=== PATIENT | female | born 1960 | race Caucasian/White ===

== ENCOUNTER 2020-04-19 15:26 | Outpatient (REF) | payer OTHER, SELFPAY ==
[2020-04-19 17:10] LABS: COVID-19 Test Negative (Negative)
== END 2020-04-19 15:27 | disposition home or self-care (01) ==
LOC: HO.LAB 15:26
PROVIDERS: Visit Provider Internal Medicine
DX: Z20.828 Contact with and (suspected) exposure to other viral communicable diseases (principal)
CPT/HCPCS: 87635

== ENCOUNTER 2020-06-05 18:00 | Outpatient (RCR) | payer OTHER, SELFPAY | END 2020-06-06 23:55 | disposition home or self-care (01) | LOC: HO.PAOS 18:00 | PROVIDERS: Visit Provider Counselor Mental Health | DX: F33.1 Major depressive disorder, recurrent, moderate (principal) | CPT/HCPCS: 90834 ==

== ENCOUNTER 2020-07-08 14:13 | Outpatient (REF) | payer OTHER, SELFPAY ==
--- NOTE | 2020-07-08 14:13 | CT_ITS ---
EXAMINATION: CT ABDOMEN AND PELVIS WITH CONTRAST CLINICAL INFORMATION: Right lower quadrant pain. COMPARISON: CT abdomen and pelvis 08/31/2018 TECHNIQUE: Multidetector volumetric images were obtained from the superior aspect of the liver through the pubic symphysis following administration 85 mL of Omnipaque 350 intravenous contrast. Sagittal and coronal reformatted images were obtained on the technologist's workstation. Oral contrast: No This CT examination was performed using dose optimization techniques as appropriate, variously including the following: *Automated exposure control *Adjustment of mA and/or kV according to patient size (this includes techniques or standardized protocols for targeted exams where dose is matched to indication/reason for exam; i.e. extremities or head) *Use of iterative reconstruction technique DLP: 359 mGy-cm FINDINGS: LUNG BASES: There are minimal atelectatic changes in the lingula. The lung bases are clear. There are bilateral augmented breasts. LIVER, GALLBLADDER, AND BILIARY TREE: The liver is normal in size, shape, and attenuation. No focal hepatic lesion or biliary ductal dilatation is present. The gallbladder has been surgically removed. PANCREAS: Unremarkable. SPLEEN: Unremarkable. ADRENAL GLANDS: Unremarkable. KIDNEYS AND URETERS: The kidneys are normal in size, shape, and attenuation. No hydronephrosis, hydroureter, or calculi seen. No perinephric stranding. BLADDER: Unremarkable. GASTROINTESTINAL TRACT: There is moderate scattered stool in the colon consistent with mild constipation. There is mild mural thickening without distention of ileal loops. No adjacent fat stranding seen. The jejunal loops are of normal caliber. The stomach is nondistended. The appendix is normal caliber. ABDOMINAL WALL: There is a small umbilical hernia containing fat. LYMPH NODES: Small shotty lymph nodes are seen in the right lower quadrant mesentery with the largest lymph node measuring 5 mm on axial image 46/3. VASCULAR: Unremarkable. PELVIC VISCERA: There is a 1.9 cm right ovarian and a 1.8 cm left ovarian cyst which have slightly increased in size when compared to previous study. The right ovarian cyst measured 1.6 cm and the left ovarian cyst measured approximately 1.4 cm on the previous study. The uterus has been surgically removed. There is no free fluid or free air. OSSEOUS STRUCTURES: No lytic or sclerotic process seen. CT/CT abdomen pelvis w con IMPRESSION: Nonspecific mild mural thickening involving the distal ileal loops without any distention or periileal fat stranding. Normal appendix. Mild constipation. Small bilateral ovarian cysts minimally larger compared to previous exam 08/31/2018. Uterus and gallbladder has been surgically removed.
[2020-07-08 14:32] LABS: Blood Urea Nitrogen 9 mg/dL (9-16); Estimated Glomerular Filt Rate > 60
[2020-07-08] MEDS: iohexoL 350 MG/ML 100 ML INFUS..BTL IV (16:33)
== END 2020-07-08 14:14 | disposition home or self-care (01) ==
LOC: HO.CT 14:13
PROVIDERS: Radiology Diagnostic Radiology; Visit Provider Internal Medicine
DX: R10.31 Right lower quadrant pain (principal)
CPT/HCPCS: 36415; 74177; 82565; 84520; Q9967

== ENCOUNTER → 2020-07-24 08:03 | Outpatient (BNVA) | payer OTHER, SELFPAY | PROVIDERS: PCP Internal Medicine; Visit Provider Obstetrics & Gynecology | DX: Z76.89 Persons encountering health services in other specified circumstances (principal) ==

== ENCOUNTER 2020-07-24 15:21 | Outpatient (REF) | payer OTHER, SELFPAY ==
--- NOTE | 2020-07-24 15:25 | US_ITS ---
EXAMINATION: ULTRASOUND PELVIS COMPLETE CLINICAL INFORMATION: Pelvic pain and bloating. Previous hysterectomy. COMPARISON: None TECHNIQUE: Transabdominal and transvaginal imaging of pelvis is performed. FINDINGS: The uterus is surgically absent. Right ovary measures 3.5 x 2.1 x 1.9 cm and volume 7.3 mL. There are 2 anechoic cysts measuring 1.4 x 1.6 x 1.6 cm and 0.8 x 1.3 x 1.0 cm. The left ovary measures 2.3 x 1.5 x 1.4 cm. There is a septated complex cyst with calcified/echogenic wilkinson measuring 1.9 x 1.6 x 1.4 cm. There is no free fluid in the cul-de-sac. US/US pelvic complete IMPRESSION: 1. Complex cyst left ovary with echogenic calcified wilkinson. 2. Two simple cyst right ovary. 3. Uterus is surgically absent.
--- NOTE | 2020-07-24 15:25 | US_ITS ---
EXAMINATION: ULTRASOUND PELVIS COMPLETE CLINICAL INFORMATION: Pelvic pain and bloating. Previous hysterectomy. COMPARISON: None TECHNIQUE: Transabdominal and transvaginal imaging of pelvis is performed. FINDINGS: The uterus is surgically absent. Right ovary measures 3.5 x 2.1 x 1.9 cm and volume 7.3 mL. There are 2 anechoic cysts measuring 1.4 x 1.6 x 1.6 cm and 0.8 x 1.3 x 1.0 cm. The left ovary measures 2.3 x 1.5 x 1.4 cm. There is a septated complex cyst with calcified/echogenic wilkinson measuring 1.9 x 1.6 x 1.4 cm. There is no free fluid in the cul-de-sac. US/US transvaginal IMPRESSION: 1. Complex cyst left ovary with echogenic calcified wilkinson. 2. Two simple cyst right ovary. 3. Uterus is surgically absent.
== END 2020-07-24 15:22 | disposition home or self-care (01) ==
LOC: HO.US 15:21
PROVIDERS: Visit Provider Obstetrics & Gynecology
DX: R10.2 Pelvic and perineal pain (principal)
CPT/HCPCS: 76830; 76856

== ENCOUNTER → 2020-08-07 11:31 | Outpatient (BNVA) | payer OTHER, SELFPAY | PROVIDERS: Visit Provider Obstetrics & Gynecology ==

== ENCOUNTER 2020-10-15 08:48 | Outpatient (REF) | payer OTHER, SELFPAY ==
[2020-10-15 10:28] LABS: Blood Urea Nitrogen 13 mg/dL (9-16); Estimated Glomerular Filt Rate > 60
[2020-10-15 10:29] LABS: Alanine Aminotransferase 27 U/L (0-31); Albumin Level 4.5 g/dL (3.5-5.0); Alkaline Phosphatase 42 U/L (39-117); Anion Gap 14 (12-20); Aspartate Amino Transferase 20 U/L (5-31); Bilirubin Total 1.2 mg/dL (0.0-1.0); Blood Urea Nitrogen 13 mg/dL (9-16); Calcium 9.6 mg/dL (8.4-10.2); Carbon Dioxide 28 mmol/L (22-29); Chloride 105 mmol/L (96-108); Cholesterol 161 mg/dL; Estimated Glomerular Filt Rate > 60; Glucose Fasting 95 mg/dL (60-99); HDL Cholesterol 55 mg/dL; LDL Cholesterol Calculated 92 mg/dl; Potassium 4.7 mmol/L (3.3-5.1); Sodium 142 mmol/L (135-145); Total Protein 7.1 g/dL (6.5-8.0); Triglycerides 73 mg/dL
[2020-10-15 10:51] LABS: TSH reflex Free T4 2.99 uIU/mL (0.32-4.0)
== END 2020-10-15 08:49 | disposition home or self-care (01) ==
LOC: HO.LAB 08:48
PROVIDERS: Absent Provider Internal Medicine; PCP Nurse Practitioner Family; Visit Provider Nurse Practitioner Family
DX: Z00.00 Encounter for general adult medical examination without abnormal findings (principal); R10.31 Right lower quadrant pain; E03.9 Hypothyroidism, unspecified
CPT/HCPCS: 36415; 80053; 80061; 82565; 84443; 84520

== ENCOUNTER 2021-04-25 11:33 | Outpatient (REF) | payer OTHER, SELFPAY ==
--- NOTE | ~2021-04-25 | XR_ITS ---
EXAMINATION: TWO-VIEW CHEST AND THREE-VIEW PARANASAL SINUSES CLINICAL INFORMATION: Headache COMPARISON: July 18, 2010 July 22, 2018 TECHNIQUE: PA and lateral chest and three-view paranasal sinuses FINDINGS: PA and lateral views of the chest do not demonstrate any evidence of acute parenchymal disease, pneumothorax, pleural effusion. Heart normal size. No evidence of pulmonary edema. Paranasal sinuses are aerated without air-fluid levels identified. No bony destruction identified. Mastoid air cells are aerated. XR/XR chest 2V IMPRESSION: No acute parenchymal disease within the chest. No evidence of acute sinusitis.
--- NOTE | ~2021-04-25 | XR_ITS ---
EXAMINATION: TWO-VIEW CHEST AND THREE-VIEW PARANASAL SINUSES CLINICAL INFORMATION: Headache COMPARISON: July 18, 2010 July 22, 2018 TECHNIQUE: PA and lateral chest and three-view paranasal sinuses FINDINGS: PA and lateral views of the chest do not demonstrate any evidence of acute parenchymal disease, pneumothorax, pleural effusion. Heart normal size. No evidence of pulmonary edema. Paranasal sinuses are aerated without air-fluid levels identified. No bony destruction identified. Mastoid air cells are aerated. XR/XR sinus min 3V IMPRESSION: No acute parenchymal disease within the chest. No evidence of acute sinusitis.
[2021-04-25 13:55] LABS: MANUAL DIFF FLAG NO
[2021-04-25 14:01] LABS: Basophils Percent Auto 0.3 % (0-2); Eosinophils Absolute Auto 0.2 X10*3/uL (0.0-0.4); Eosinophils Percent Auto 1.8 % (0-4); Hemoglobin 14.7 g/dl (12.0-16.0); Imm Gran Abs Auto 0.03 X10*3/uL (0.00-0.03); Imm Gran Pct Auto 0.3 % (0.0-0.4); Lymphocytes Percent Auto 41.4 % (20-40); Mean Corpuscular HGB Conc 33.4 g/dl (31.0-35.0); Mean Corpuscular Hemoglobin 30.4 pg (27.0-33.0); Mean Corpuscular Volume 90.9 fL (80-98); Mean Platelet Volume 10.4 fL (9.4-12.3); Monocytes Absolute Auto 0.7 X10*3/uL (0.1-1.2); Monocytes Percent Auto 7.6 % (2-11); Neutrophils Absolute Auto 4.6 X10*3/uL (2.0-8.3); Neutrophils Percent Auto 48.6 % (45-73); Platelet Count 395 X10*3/uL (160-400); Red Blood Count 4.84 X10*6/uL (4.20-5.50); Red Cell Distribution Width 12.5 % (11.0-16.0); White Blood Count 9.5 X10*3/uL (4.8-10.8)
== END 2021-04-25 11:34 | disposition home or self-care (01) ==
LOC: HO.HMGCX 11:33
PROVIDERS: PCP Nurse Practitioner Family; Visit Provider Internal Medicine
DX: R05.9 Cough, unspecified (principal); R09.81 Nasal congestion; R51.9 Headache, unspecified
CPT/HCPCS: 36415; 70220; 71046; 85025

== ENCOUNTER 2021-05-06 14:51 | Outpatient (REF) | payer OTHER, SELFPAY ==
--- NOTE | ~2021-05-06 | XR_ITS ---
EXAMINATION: XR KNEE, LEFT CLINICAL INFORMATION: Pain COMPARISON: None TECHNIQUE: Four views of the left knee. FINDINGS: Bone alignment is normal. No fracture or dislocation is seen. There are small osteophytes at the patellofemoral joint. The joint spaces are otherwise normal. There is a small joint effusion. XR/XR knee LT 4V IMPRESSION: Mild degenerative changes and small joint effusion.
== END 2021-05-06 14:52 | disposition home or self-care (01) ==
LOC: HO.XRAY 14:51
PROVIDERS: PCP Nurse Practitioner Family; Visit Provider Nurse Practitioner Family
DX: M25.562 Pain in left knee (principal)
CPT/HCPCS: 73564

== ENCOUNTER 2022-05-27 15:10 | Outpatient (REF) | payer OTHER, SELFPAY ==
--- NOTE | 2022-05-27 | EMG_ITS ---
Please see scanned EMG / Nerve Conduction Report. MTDD
== END 2022-05-27 15:11 | disposition home or self-care (01) ==
LOC: HO.NEURO 15:10
PROVIDERS: Visit Provider Physician Assistant
DX: M62.81 Muscle weakness (generalized) (principal)
CPT/HCPCS: 95885; 95909

== ENCOUNTER 2022-06-16 12:36 | Outpatient (REF) | payer OTHER, SELFPAY ==
--- NOTE | ~2022-06-16 | XR_ITS ---
EXAMINATION: XR CERVICAL SPINE CLINICAL INFORMATION: M54.12 - Radiculopathy, cervical region COMPARISON: Cervical spine radiographs 04/03/2008 TECHNIQUE: 3 views of the cervical spine were obtained. FINDINGS: Vertebral bodies are normal in height. There is normal cervical lordosis with borderline dextrocurvature. The odontoid appears intact. There is no vertebral compression, spondylolisthesis, destructive process, or prevertebral soft tissue swelling. There are borderline degenerative disc changes C4-C5 and C5-C6 along with mild anterior vertebral spurring. No erosive changes. There is incidental mild congenital prominence transverse processes C7, similar to prior exam. XR/XR cervical spine 2V IMPRESSION: 1. Borderline degenerative disc changes C4-C5 and C5-C6. 2. No vertebral compression, spondylolisthesis, destructive process.
[2022-06-16 14:09] LABS: MANUAL DIFF FLAG NO
[2022-06-16 14:17] LABS: Basophils Absolute Auto 0.1 X10*3/uL (0.0-0.2); Basophils Percent Auto 0.5 % (0-2); Eosinophils Absolute Auto 0.1 X10*3/uL (0.0-0.4); Eosinophils Percent Auto 1.4 % (0-4); Hematocrit 44.5 % (37.0-47.0); Hemoglobin 14.8 g/dl (12.0-16.0); Imm Gran Abs Auto 0.02 X10*3/uL (0.00-0.03); Imm Gran Pct Auto 0.2 % (0.0-0.4); Lymphocytes Absolute Auto 3.6 X10*3/uL (1.2-4.9); Lymphocytes Percent Auto 37.3 % (20-40); Mean Corpuscular HGB Conc 33.3 g/dl (31.0-35.0); Mean Corpuscular Hemoglobin 29.8 pg (27.0-33.0); Mean Corpuscular Volume 89.7 fL (80.0-98.0); Mean Platelet Volume 10.1 fL (9.4-12.3); Monocytes Absolute Auto 0.6 X10*3/uL (0.1-1.2); Neutrophils Absolute Auto 5.2 x10*3/uL (2.0-8.3); Neutrophils Percent Auto 54.6 % (45-73); Platelet Count 412 X10*3/uL (160-400); Red Blood Count 4.96 X10*6/uL (4.20-5.50); Red Cell Distribution Width 12.8 % (11.0-16.0); White Blood Count 9.5 X10*3/uL (4.8-10.8)
[2022-06-16 14:26] LABS: D Dimer High Sensitivity < 150 NG/ML
[2022-06-16 16:09] LABS: Alanine Aminotransferase 27 U/L (0-31); Albumin Level 4.6 g/dL (3.5-5.0); Alkaline Phosphatase 41 U/L (39-117); Anion Gap 11 (12-20); Aspartate Amino Transferase 21 U/L (5-31); Bilirubin Total 0.7 mg/dL (0.0-1.0); Blood Urea Nitrogen 8 mg/dL (9-16); Calcium 9.7 mg/dL (8.4-10.2); Carbon Dioxide 31 mmol/L (22-29); Chloride 105 mmol/L (96-108); Estimated Glomerular Filt Rate > 60; Glucose Random 94 mg/dL (60-115); Potassium 4.7 mmol/L (3.3-5.1); Sodium 142 mmol/L (135-145); TSH reflex Free T4 1.11 uIU/mL (0.32-4.0)
[2022-06-16 17:09] LABS: Folate 8.1 ng/mL (> or = 4.0); Vitamin B12 434 pg/mL (200-900)
[2022-06-17 11:08] LABS: Magnesium 2.3 mg/dL (1.6-2.6)
[2022-06-19 00:04] LABS: A. Phagocytphilium DNA,RT-PCR NOT DETECTED (NOT DETECTED); Babesia Microti DNA, RT-PCR NOT DETECTED (NOT DETECTED); Borrelia Miyamotoi,DNA RT-PCR NOT DETECTED (NOT DETECTED); E.Chaffeensis DNA RT-PCR NOT DETECTED (NOT DETECTED); Lyme(Borrelia ssp)DNA RT-PCR NOT DETECTED (NOT DETECTED)
[2022-06-20 15:29] LABS: Vitamin B6 18.9 ng/mL (2.1-21.7)
== END 2022-06-16 12:37 | disposition home or self-care (01) ==
LOC: HO.HMGCLDS 12:36
PROVIDERS: PCP Nurse Practitioner Family; Visit Provider Nurse Practitioner Family
DX: H43.399 Other vitreous opacities, unspecified eye (principal); R20.0 Anesthesia of skin; M54.12 Radiculopathy, cervical region
CPT/HCPCS: 36415; 72040; 80053; 82607; 82746; 83735; 84207; 84443; 85025; 85379; 87798; 87801

== ENCOUNTER 2022-06-17 08:07 | Outpatient (REF) | payer OTHER, SELFPAY ==
--- NOTE | ~2022-06-17 | MR_ITS ---
EXAMINATION: MRI OF THE BRAIN WITHOUT CONTRAST CLINICAL INFORMATION: Right face numbness, eye to lips. COMPARISON: Remote CT scanning of the head 04/16/2011. TECHNIQUE: MRI of the brain was obtained using routine sequences without contrast. FINDINGS: No diffusion abnormalities are identified to suggest an acute or subacute infarct. No mass effect or midline shift is seen. The ventricles and sulci are normal in size. There are a few scattered foci of hyperintense T2 and FLAIR signal in the periventricular and subcortical white matter, most consistent with mild chronic microvascular ischemic changes. No extra-axial fluid collections are seen. The brainstem and cerebellum are normal. No pathologic magnetic susceptibility artifact is identified on the gradient refocused acquisition. The craniovertebral junction, marrow signal, and midline structures are normal. The major intracranial flow-voids at the level of the point [place] ira of [place] are preserved. The dural venous sinus flow-voids are maintained. The mastoid air cells are well-aerated. There is minimal mucoperiosteal thickening in the ethmoid sinuses. There is a persistent metopic suture.. MR/MR head/brain wo con IMPRESSION: 1. There are no acute bleeds or infarcts. No masses are demonstrated. There is mild microvascular ischemic disease.
== END 2022-06-17 08:08 | disposition home or self-care (01) ==
LOC: HO.MRI 08:07
PROVIDERS: Visit Provider Nurse Practitioner Family
DX: H43.399 Other vitreous opacities, unspecified eye (principal); R20.0 Anesthesia of skin
CPT/HCPCS: 70551

== ENCOUNTER 2022-08-28 09:21 | Day surgery (SDC) | payer OTHER, SELFPAY ==
--- NOTE | 2022-08-27 11:09 | P.CONAN_ITS ---
Documented by User: Irma Perez NP 08/27/22 11:12 HPI - Anesthesia Eval Consult details Narrative: 61yo F for Colonoscopy PMFSH Active Problems Active Problems: All Active Problems (Updated 08/04/22 @ 17:43 by Olvin Denny, [facility]) Stress (Acute) Facial numbness (Acute) Visual floaters (Acute) Cervical radiculopathy (Acute) Sinusitis (Acute) Viral illness (Acute) Left knee pain (Acute) Otitis media (Acute) Right ovarian cyst (Acute) Acquired hypothyroidism (Acute) Right lower quadrant pain (Acute) Irritable bowel syndrome with constipation (Acute) Physical exam (Acute) Hypothyroid (Acute) Past Medical History Medical History Acquired hypothyroidism Diverticulitis Irritable bowel syndrome with constipation Lateral epicondylitis of elbow Right ovarian cyst Family History Family History Father No problems noted. Mother Breast cancer Hypothyroidism High cholesterol Diabetes mellitus HTN (hypertension) Daughter Ankylosing spondylitis Maternal Grandmother CVD (cardiovascular disease) Maternal Grandfather Lung cancer Paternal Grandfather Unknown family medical history Paternal Grandmother Unknown family medical history Maternal Aunt Melanoma Brother Melanoma Surgical History Surgical History History of breast augmentation History of laparoscopic cholecystectomy History of partial hysterectomy History of tonsillectomy Social History Social History Housing: House Alcohol intake: current Alcohol intake frequency: holidays/special occasions only Patient Tobacco Use Status: Former Tobacco user Years Smoked: quit 35 years ago e-Cigarette/Vaping Use: Never Used Second Hand Smoke Exposure: No Use of substances other than those prescribed or required for medical reasons: No Are you DNR?: No Advance Directives: No Advance Directives Information Provided: Yes Recently lost weight without trying: No Nutrition Risks: No Nutritional Risk service: No Current occupational status: employed 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 Current occupational exposures/hazards: No Sexual orientation: Straight/Heterosexual Gender identity: Female Cognitive needs: No Hearing needs: No Vision needs: No Meds Allergies Allergy/AdvReac Type Severity Reaction Status Date / Time No Known Allergies Allergy Mild NKA Verified 08/04/22 17:36 Home Medications Medication Instructions Recorded Confirmed Last Taken Type alprazolam 1 mg tablet 1 mg PO TID PRN Anxiety 06/05/20 08/28/22 Unknown History escitalopram oxalate 10 mg tablet 10 mg PO DAILY 06/05/20 08/28/22 Unknown History nortriptyline 10 mg capsule 10 mg PO BEDTIME 06/05/20 08/28/22 Unknown History Exam Exam Date and Time: August 27, 2022 1109 Pertinent Lab Results Pertinent Lab Results: Laboratory Tests 06/16/22 06/16/22 12:46 12:46 WBC 9.5 Hgb 14.8 Hct 44.5 Plt Count 412 H Sodium 142 Potassium 4.7 Chloride 105 Carbon Dioxide 31 H BUN 8 L Creatinine 0.65 Narrative Narrative: EKG 05/2022 NSR @ 75 Brain MRI 05/2022 MR head/brain wo con IMPRESSION: 1. There are no acute bleeds or infarcts. No masses are demonstrated. There is mild microvascular ischemic disease. Assessment and Plan Assessment Anesthesia Assessment: Chart Reviewed Documented by User: Lilian Davidson MD 08/28/22 10:57 PMFSH Active Problems Active Problems: All Active Problems (Updated 08/04/22 @ 17:43 by Olvin Denny, [facility]) Stress (Acute) Facial numbness (Acute) Visual floaters (Acute) Cervical radiculopathy (Acute) Sinusitis (Acute) Viral illness (Acute) Left knee pain (Acute) Otitis media (Acute) Right ovarian cyst (Acute) Acquired hypothyroidism (Acute) Right lower quadrant pain (Acute) Irritable bowel syndrome with constipation (Acute) Physical exam (Acute) Hypothyroid (Acute) ?Right ulnar neuropathy Past Medical History Medical History Acquired hypothyroidism Diverticulitis Irritable bowel syndrome with constipation Lateral epicondylitis of elbow Right ovarian cyst Family History Family History Father No problems noted. Mother Breast cancer Hypothyroidism High cholesterol Diabetes mellitus HTN (hypertension) Daughter Ankylosing spondylitis Maternal Grandmother CVD (cardiovascular disease) Maternal Grandfather Lung cancer Paternal Grandfather Unknown family medical history Paternal Grandmother Unknown family medical history Maternal Aunt Melanoma Brother Melanoma Family history of problems with anesthesia: No Surgical History Surgical History History of breast augmentation History of laparoscopic cholecystectomy History of partial hysterectomy History of tonsillectomy History of Problems with Anesthesia: No Social History Social History Housing: House Alcohol intake: current Alcohol intake frequency: holidays/special occasions only Patient Tobacco Use Status: Former Tobacco user Years Smoked: quit 35 years ago e-Cigarette/Vaping Use: Never Used Second Hand Smoke Exposure: No Use of substances other than those prescribed or required for medical reasons: No Are you DNR?: No Advance Directives: No Advance Directives Information Provided: Yes Recently lost weight without trying: No Nutrition Risks: No Nutritional Risk service: No Current occupational status: employed Current occupation: [employer] Current occupational exposures/hazards: No Sexual orientation: Straight/Heterosexual Gender identity: Female Cognitive needs: No Hearing needs: No Vision needs: No Meds Allergies Allergy/AdvReac Type Severity Reaction Status Date / Time No Known Allergies Allergy Mild NKA Verified 08/04/22 17:36 Home Medications Medication Instructions Recorded Confirmed Last Taken Type alprazolam 1 mg tablet 1 mg PO TID PRN Anxiety 06/05/20 08/28/22 Unknown History escitalopram oxalate 10 mg tablet 10 mg PO DAILY 06/05/20 08/28/22 Unknown History nortriptyline 10 mg capsule 10 mg PO BEDTIME 06/05/20 08/28/22 Unknown History Exam Height,Weight and Vital Signs: Height 5 ft 2 in Weight 64.864 kg Vital Signs Temp Pulse Resp BP Pulse Ox O2 Del Method 08/28/22 10:12 99.0 F 109 H 16 126/74 95 Room Air Airway Mallampati Class: II TM Dist: >3cm Neck ROM: Full Loose/Missing/Broken Teeth: No (Denies broken, loose, missing teeth) Heart: RRR Lungs: CTAB Assessment and Plan Assessment Anesthesia Assessment: Anesthesia Plan Discussed Final Anesthetic Review Family History of Problems with Anesthesia: No History of Problems with Anesthesia: No NPO: Yes ASA Class: II Final Preanesthetic Review: No Changes in Pt Med Stat, Meds/Allgs Chart Reviewed, Consent Obtained/Reviewed and Anes Risks/Benef Reviewed Patient Risk: Low Procedure Risk: Low Assessment/Block/Sedation in SS: Assess/Block/Sedation-SS Anesthetic Plan Anesthetic Plan: MAC: Disposition: Standard PACU
[2022-08-28 09:47] VITALS: BMI 26.2
[2022-08-28 10:12] VITALS: BP 126/74; PULSE 109; RESP 16; TEMP 37.2; O2SAT 95
[2022-08-28] MEDS: Lactated Ringers 1,000 ML 100 ML IVCONT (10:14)
[2022-08-28 11:30] VITALS: BP 116/67; PULSE 80; RESP 16; TEMP 37.1; O2SAT 100
--- NOTE | 2022-08-28 11:34 | P.BOP_ITS ---
Brief Operative Note Date of Service: 08/28/22 Pre-op diagnosis: Screening Post-op diagnosis: other (Colon polyp) Procedure: Colonoscopy to the cecum and TI with bx/removal of polyp Surgeon: David Mcdowell Anesthesia: MAC Was an Vamp Liner used for this Procedure?: No Estimated blood loss (mL): 2.0 Pathology: other (A. Polyp at 30cm) Condition: stable Disposition: PACU
[2022-08-28 11:45] VITALS: BP 134/84; PULSE 77; RESP 16; TEMP 37.1; O2SAT 97
--- NOTE | 2022-08-28 22:54 | OP_ITS ---
SURGEON: David Mcdowell MD INDICATIONS: The patient presents for evaluation of colorectal cancer screening. Full consent has been obtained from her for this, including risks of bleeding and perforation. PREOPERATIVE DIAGNOSIS: Colorectal cancer screening. POSTOPERATIVE DIAGNOSIS: PROCEDURE PERFORMED: Colonoscopy to the cecum and terminal ileum with biopsy and removal of polyp. ESTIMATED BLOOD LOSS: COMPLICATIONS: ANESTHESIA: Medication used, monitored anesthesia care. ASSISTANTS: SPECIMENS: POSTOPERATIVE DIAGNOSES: Colorectal cancer screening, small colon polyp, mild diverticulosis, internal and external hemorrhoids. DESCRIPTION OF PROCEDURE: The patient was placed in the left lateral decubitus position. The digital rectal exam revealed external hemorrhoids. The Olympus video pediatric colonoscope was entered into the rectum and advanced easily to the cecum. Once in the cecum, I did identify a normal-appearing cecal pouch with appendiceal orifice and a normal-appearing ileocecal valve. The terminal ileum was cannulated and appeared normal. The scope was withdrawn back in the colon. The entire cecum and ileocecal valve appeared normal. The scope was then slowly withdrawn assessing all mucosal surfaces carefully. Preparation was very good throughout the colon, but did require some irrigation and suctioning. However, ultimately, the preparation was for the most part excellent. The only polyp I visualized was at 30 cm. This was approximately 4 mm in diameter and biopsied and completely removed with a cold biopsy forceps. I did not visualize any other polyps, colitis, nor angiodysplasia. There was a mild amount of sigmoid diverticulosis. In the rectum, the scope was retroflexed visualizing internal hemorrhoids, but no other pathology. The rectal mucosa appeared normal. The scope was straightened out and withdrawn from the patient. She tolerated the procedure well and was returned to the recovery area in stable condition. IMPRESSION: 1. Small colon polyp. 2. Mild diverticulosis. 3. Internal and external hemorrhoids. PLAN: The results of the biopsy will be checked. Assuming it to be a tubular adenoma, I would recommend a followup colonoscopy in 5 years. If it is only hyperplastic, I would recommend a followup colonoscopy in 10 years. She will otherwise continue her regimen for the irritable bowel syndrome with the Benefiber, MiraLax, and hyoscyamine. She will otherwise see me on a p.r.n. basis. MD KARRIE Batres/BERRY / [id number]
== END 2022-08-28 12:15 | disposition home or self-care (01) ==
PROVIDERS: PCP Nurse Practitioner Family; Visit Provider Internal Medicine
PROC: 0DJD8ZZ Inspection of Lower Intestinal Tract, Via Natural or Artificial Opening Endoscopic (ICD-10-PCS; CPT 45378; principal; 2022-08-28 10:30)
DX: Z12.11 Encounter for screening for malignant neoplasm of colon (principal); K63.5 Polyp of colon; K57.30 Diverticulosis of large intestine without perforation or abscess without bleeding; K64.8 Other hemorrhoids; K64.4 Residual hemorrhoidal skin tags; K58.1 Irritable bowel syndrome with constipation; Z87.19 Personal history of other diseases of the digestive system; E03.9 Hypothyroidism, unspecified; E78.5 Hyperlipidemia, unspecified; Z79.1 Long term (current) use of non-steroidal anti-inflammatories (NSAID); Z79.899 Other long term (current) drug therapy; Z90.49 Acquired absence of other specified parts of digestive tract; Z87.891 Personal history of nicotine dependence; Z86.16 Personal history of COVID-19
CPT/HCPCS: 45380; 88305

== ENCOUNTER 2023-06-01 15:23 | Outpatient (REF) | payer OTHER, SELFPAY ==
[2023-06-01 15:40] LABS: MANUAL DIFF FLAG NO
[2023-06-01 16:33] LABS: Basophils Absolute Auto 0.1 X10*3/uL (0.0-0.2); Basophils Percent Auto 0.6 % (0-2); Eosinophils Absolute Auto 0.2 X10*3/uL (0.0-0.4); Hematocrit 44.1 % (37.0-47.0); Hemoglobin 14.6 g/dl (12.0-16.0); Imm Gran Abs Auto 0.02 X10*3/uL (0.00-0.03); Imm Gran Pct Auto 0.2 % (0.0-0.4); Lymphocytes Absolute Auto 3.5 X10*3/uL (1.2-4.9); Lymphocytes Percent Auto 40.9 % (20-40); Mean Corpuscular HGB Conc 33.1 g/dl (31.0-35.0); Mean Corpuscular Hemoglobin 30.5 pg (27.0-33.0); Mean Corpuscular Volume 92.1 fL (80.0-98.0); Mean Platelet Volume 10.4 fL (9.4-12.3); Monocytes Absolute Auto 0.5 X10*3/uL (0.1-1.2); Monocytes Percent Auto 5.6 % (2-11); Neutrophils Absolute Auto 4.4 x10*3/uL (2.0-8.3); Neutrophils Percent Auto 50.7 % (45-73); Platelet Count 476 X10*3/uL (160-400); Red Blood Count 4.79 X10*6/uL (4.20-5.50); Red Cell Distribution Width 12.6 % (11.0-16.0); White Blood Count 8.6 X10*3/uL (4.8-10.8)
[2023-06-01 17:02] LABS: C Reactive Protein < 0.10 mg/dL (< or = 0.50)
[2023-06-01 17:08] LABS: Rheumatoid Factor < 13.0 IU/mL (<15.0)
[2023-06-01 17:14] LABS: Erythrocyte Sedimentation Rate 2 MM/HR (0-20)
[2023-06-01 17:26] LABS: Thyroid Stimulating Hormone 0.95 uIU/mL (0.32-4.0)
[2023-06-01 17:37] LABS: T4 Thyroxine 8.2 ug/dL (4.5-12.0)
[2023-06-04 02:24] LABS: Lyme Abs Screen <0.90 index
[2023-06-07 14:14] LABS: Triiodothyronine T3 Reverse 15 ng/dL (8-25)
[2023-06-08 18:35] LABS: Anti Nuclear Antibody Screen NEGATIVE (NEGATIVE)
== END 2023-06-01 15:24 | disposition home or self-care (01) ==
LOC: HO.LAB 15:23
PROVIDERS: PCP Nurse Practitioner Family; Visit Provider Psychiatry & Neurology Neurology
DX: E03.9 Hypothyroidism, unspecified (principal); M77.8 Other enthesopathies, not elsewhere classified
CPT/HCPCS: 36415; 82550; 84436; 84443; 84482; 85025; 85652; 86038; 86140; 86431; 86617; 86618

== ENCOUNTER 2023-06-22 15:25 | Outpatient (REF) | payer OTHER, SELFPAY ==
[2023-06-23 13:02] LABS: Anti DNA DS Antibody 9 IU/mL; Antibody to SS-A Antigen <1.0 NEG AI (<1.0 NEG); Antibody to SS-B Antigen <1.0 NEG AI (<1.0 NEG)
[2023-06-23 15:03] LABS: Anti Nuclear Antibody Screen NEGATIVE (NEGATIVE)
== END 2023-06-22 15:26 | disposition home or self-care (01) ==
LOC: HO.LAB 15:25
PROVIDERS: PCP Nurse Practitioner Family; Visit Provider Psychiatry & Neurology Neurology
DX: M79.7 Fibromyalgia (principal); R20.2 Paresthesia of skin
CPT/HCPCS: 36415; 86038; 86225; 86235

== ENCOUNTER 2023-06-23 11:37 | Outpatient (REF) | payer OTHER, SELFPAY ==
--- NOTE | ~2023-06-23 | MR_ITS ---
MRI OF THE BRAIN WITHOUT IV CONTRAST INDICATION: Paresthesias. Rule out multiple sclerosis. COMPARISON: Brain MRI 06/17/2022. TECHNIQUE: Multiplanar multisequence MR imaging of the brain was obtained without IV contrast. FINDINGS: There is no hydrocephalus, extra-axial surface collection, or herniation. Stable mild nonspecific T2 signal changes within the supratentorial white matter. The major flow voids at the skull base are preserved. There is no acute infarct on diffusion-weighted imaging. There is no intracranial hemorrhage on the gradient recalled echo acquisition. The midline structures are normal. The cerebellar tonsils are normally positioned. The cerebellum and brainstem are normal. The craniocervical junction is normal. Osseous marrow signal intensity is homogenous. The visualized soft tissues are unremarkable. MR/MR head/brain wo con IMPRESSION: No acute findings. Stable mild nonspecific T2 signal changes within the supratentorial white matter.
== END 2023-06-23 11:38 | disposition home or self-care (01) ==
LOC: HO.MRI 11:37
PROVIDERS: Visit Provider Psychiatry & Neurology Neurology
DX: R20.2 Paresthesia of skin (principal)
CPT/HCPCS: 70551

== ENCOUNTER 2023-07-30 10:02 | Outpatient (AMB) | payer OTHER, SELFPAY ==
[2023-07-30 10:06] VITALS: BP 100/68; PULSE 98; TEMP 36.1; O2SAT 95; BMI 26.6
--- NOTE | 2023-07-30 10:06 | A.OFFVIS_ITS ---
Intake Vital Signs 07/30/23 10:06 Height 5 ft 2 in Weight 145 lb 4.554 oz BMI 26.6 BP 100/68 Blood Pressure Location Rt brachial Position Sitting Pulse 98 Pulse Source Pulse Oximeter Temp 97 F Temp Source Skin Pulse Oximetry (%) 95 Oxygen Delivery Method Room Air Intake Visit Reasons: Fibromyalgia Intake Note: New patient, referred by Dr. Pompa, presents today for fibromyalgia vs tendonitis. c/o multiple joint pain Pain began approx 2 years ago Has had cortisone injection, prescribed pain medications Vocational Examiner Required: No Accompanied by: Self / Same As Patient Allergies No Known Allergies Allergy (Mild, Verified 07/30/23 10:12) NKA HPI HPI Comments History of Present Illness Details Mrs. Christianson, 62 yoF presents today on referral from her PCP/Neurologist for evaluation after labs showed +dsDNA. The patient has a PMH of Hypothyroid, IBS, elevated Cholesterol, Depression, Fatigue, Migraine and Total Body pain. She has been to see the neurologist due to pain and numbness in her hands and was found to have mild ulnar neuropathy. She reports that with all the symptoms that she is experiencing they thought it could be related to the +dsDNA. She describes total body pain and chronic fatigue where she does not feel lie getting out of bed. It takes much effort to get up and get dressed. Her history of UC dates back 15 years and was resolved with suppository (Dr. Mcdowell) but she does not remember the name of the medication, per patient. She reports her joint's ache often, her hands causes her to drop things because the thumbs hurt. She feels pain in her knees and lower back. Her ankles get swollen after long periods of walking. She has received cortisone injection in the right elbow where she was diagnosed with mild compression of the ulnar nerve. She had sun-poisoning 10 years ago so she avoid the sun because she garces or gets very red in the face. She visits the dentist every six months and is diagnosed with dry mouth, she uses lozenges, scrapes her tongues often. She can swallow her food without difficulty and does not suffer from GERD. She also has very dry eyes which feels like sand even after she puts in eye drops; she uses eye drops at least twice daily Patient denies Raynaud's phenomenon; denies - getting sick or developing from being out in the sun; denies blood or froth in urine; patient denies hx of SOB, chest pain. Patient denies hx of Carditis or Pleuritis. Patient denies any history of DVT/PE and reports never have had to take aspirin or a blood thinner during the successful pregnancies. Denies fevers, unexplained weight-loss or weight-gain, thinning hair or hair loss, mouth sores or ulcers. She thinks her half sister had Lupus Her brother has Active UC Daughter has with FM [facility] Medical History (Updated 07/30/23 @ 12:28 by Vikki Washburn [facility]) Lower back pain History of ulcerative colitis Knee pain, bilateral Bilateral hand pain Pain in joint involving multiple sites Ulnar neuropathy Lateral epicondylitis of elbow Right ovarian cyst Diverticulitis Acquired hypothyroidism Irritable bowel syndrome with constipation Surgical History History of breast augmentation History of laparoscopic cholecystectomy History of partial hysterectomy History of tonsillectomy Family History Father No problems noted. Mother Breast cancer Hypothyroidism High cholesterol Diabetes mellitus HTN (hypertension) Daughter Ankylosing spondylitis Fibromyalgia Maternal Grandmother CVD (cardiovascular disease) Maternal Grandfather Lung cancer Paternal Grandfather Unknown family medical history Paternal Grandmother Unknown family medical history Maternal Aunt Melanoma Brother Melanoma Social History Housing: House Alcohol intake: current Alcohol intake frequency: holidays/special occasions only Patient Tobacco Use Status: Former Tobacco user Years Smoked: quit 35 years ago e-Cigarette/Vaping Use: Never Used Second Hand Smoke Exposure: No service: No Current occupational status: employed Current occupation: [employer] Current occupational exposures/hazards: No Sexual orientation: Straight/Heterosexual Gender identity: Female Cognitive needs: No Hearing needs: No Vision needs: No Review of Systems Const All systems reviewed & are unremarkable except as noted in HPI and below Physical Exam Vital Signs: Last Vital Signs Temp 97 F 07/30/23 10:06 Pulse 98 07/30/23 10:06 BP 100/68 07/30/23 10:06 Pulse Ox 95 07/30/23 10:06 Oxygen Delivery Method Room Air 07/30/23 10:06 BMI result Body Mass Index 26.6 APPEARANCE: Patient in no acute distress EYES no redness, pupils equal and reactive to light, eyelids normal EARS:? External ear normal, canal clear and tympanic membrane normal. NOSE/SINUS:? Airflow through both nares, no nasal discharge, no bleeding THROAT:? Oral mucosa dry, no ulcerations NECK:? No thyromegaly or masses, no adenopathy, trachea midline. HEART:? Regular rhythm, S1-S2 heard, no murmurs, rubs or gallops. LUNG:? Clear to percussion and auscultation ABD:? Normal bowel sounds, no organomegaly, masses or tenderness. EXTREMITIES:? No edema, no calf tenderness, normal peripheral pulses. NEURO:? Oriented and alert x3.? No focal weakness.? Reflexes symmetric.? Gait normal. SKIN:? There are no skin lesions evident. No objective signs of Raynaud's phenomenon. Redness to cheek and nose in malar form JOINT EXAM: Cervical Spine:.? Full range of motion without pain; no tenderness. Thoracic Spine:.? No scoliosis.? No tenderness on palpation. Lumbar Spine:.? Alignment normal.? Full range of motion without pain, and tenderness to palpation at SI joint R>L. Chest Wall:.? No tenderness, swelling, increased warmth or erythema. Hands:? Right:? Normal pain-free range of motion with some slight thickening at the thumb CMC and the 3rd and 4th DIP joints but none of these are tender.? Elsewhere in the hand there is no area of tenderness, swelling, increased warmth or erythema.? There is no thenar atrophy or sensory loss.? Left:? Normal pain- free range of motion with some slight thickening at the CMC joints. This is more bony than soft tissue swelling. There is diffused tenderness with palpation to the hand IP joints. There is no flexor tendon triggering, thenar atrophy or sensory loss.? No areas of tenderness or swelling. Wrists:.? Normal pain-free range of motion without tenderness, swelling, increased warmth or erythema. Elbows:. Normal pain-free range of motion without tenderness, swelling, increased warmth or erythema. Shoulders:.?? Full range of motion without pain. No tenderness, weakness, swelling, increased warmth or erythema. Hips:.? Full range of motion without pain. Hip bursa:.? No tenderness. Knees:.?? Normal pain-free range of motion without tenderness, swelling, increased warmth or erythema.? There is no effusion or crepitation Ankles:.? Normal pain-free range of motion without tenderness, swelling, increased warmth or erythema. Feet:.? Normal pain-free range of motion without tenderness, swelling, increased warmth or erythema. Tender points:? tenderness to digital palpation at the occiput, trapezius, second rib, lateral epicondyles, knees, greater trochanter and gluteal area bilaterally. Results Reviewed Results Reviewed: Laboratory Tests 06/01/23 06/01/23 06/01/23 15:38 15:38 15:38 WBC 8.6 RBC 4.79 Hgb 14.6 Hct 44.1 MCV 92.1 MCH 30.5 ESR 2 Total Creatine Kinase 60 C-Reactive Protein < 0.10 Thyroxine (T4) 8.2 Reverse T3 Rheumatoid Factor < 13.0 AMADEO Screen NEGATIVE SS-A/Ro Antibody SS-B/La Antibody Double Strand DNA Ab 06/01/23 06/22/23 06/22/23 Unknown 15:34 15:34 WBC RBC Hgb Hct MCV MCH ESR Total Creatine Kinase C-Reactive Protein Thyroxine (T4) Reverse T3 15 Rheumatoid Factor AMADEO Screen NEGATIVE SS-A/Ro Antibody <1.0 NEG SS-B/La Antibody <1.0 NEG Double Strand DNA Ab 9 H 06/16/2022 EXAMINATION: XR CERVICAL SPINE CLINICAL INFORMATION: M54.12 - Radiculopathy, cervical region COMPARISON: Cervical spine radiographs 04/03/2008 TECHNIQUE: 3 views of the cervical spine were obtained. FINDINGS: Vertebral bodies are normal in height. There is normal cervical lordosis with borderline dextrocurvature. The odontoid appears intact. There is no vertebral compression, spondylolisthesis, destructive process, or prevertebral soft tissue swelling. There are borderline degenerative disc changes C4-C5 and C5-C6 along with mild anterior vertebral spurring. No erosive changes. There is incidental mild congenital prominence transverse processes C7, similar to prior exam. XR/XR cervical spine 2V IMPRESSION: 1. Borderline degenerative disc changes C4-C5 and C5-C6. 2. No vertebral compression, spondylolisthesis, destructive process. 05/17/2021 EXAMINATION: XR KNEE, LEFT CLINICAL INFORMATION: Pain COMPARISON: None TECHNIQUE: Four views of the left knee. FINDINGS: Bone alignment is normal. No fracture or dislocation is seen. There are small osteophytes at the patellofemoral joint. The joint spaces are otherwise normal. There is a small joint effusion. XR/XR knee LT 4V IMPRESSION: Mild degenerative changes and small joint effusion. Assessment & Plan Assessment & Plan (1) Positive double stranded DNA antibody test: Code(s): R76.8 - Other specified abnormal immunological findings in serum (2) Lower back pain: Code(s): M54.50 - Low back pain, unspecified Qualifiers: Chronicity: chronic Back pain laterality: bilateral Sciatica presence: without sciatica Qualified Code(s): M54.50 - Low back pain, unspecified; G89.29 - Other chronic pain (3) Pain in joint involving multiple sites: Code(s): M25.50 - Pain in unspecified joint Plan #+dsDNA: Ms. Mann, presents for evaluation of +dsDNA. Other serology results were negative for AMADEO, SSA/SSB and RF. After initial careful review of her history, records, diagnostics and a thorough PE, I do not see a case for SLE. Though dsDNA has a specificity to SLE, it is very rare to have a negative AMADEO and have SLE and if an AMADEO is negative it is recommended not to test for dsDNA. Even the the AMADEO is negative, the method of testing can cause dsDNA to be positive with low tither and is usually seen as indeterminate. She does have a redness to her cheek and nose that presents in Malar form that she says happens everyday if she is stressed or feeling anxious or goes out in the sun. The rash resolves without medication. She describes chronic fatigue. Fatigue can be caused by, among other things, anemia, endocrine and cardiovascular issues, insomnia and Depression. Her thyroid appears optimized so I think that her fatigue may be related to her depression as described in the HPI. I will note that she has the classic medley for Fibromyalgia which she expresses - total body pain, migraines, IBS, depression and fatigue. Except for the Malar redness to her face, her PE was unremarkable and she also does not appear to have kidney disease. Nevertheless, I will do further evaluation of +dsDna with confirmatory recheck and Crithidia, along with other serology. I will also do imaging of lower back, hands and knees to assess the extent of OA and if any inflammatory features that may be contributory to the joint pain. The patient reported that she was treated for UC with suppositories [address] Mcdowell. However, there is no mention in his visit notes (dating back 2011 with colonoscopy) of her history of UC. There is ample discussion on the IBS/Constipation. I will see her in 3 weeks. I spent 55 minutes reviewing history, evaluating patient and documenting. Orders: Orders C Reactive Protein Today M25.50 - Pain in unspecified joint, R76.8 - Other specified abnormal immunological findings in serum Complete Blood Count Auto Diff Today M25.50 - Pain in unspecified joint, R76.8 - Other specified abnormal immunological findings in serum Complement C3 Today M25.50 - Pain in unspecified joint, R76.8 - Other specified abnormal immunological findings in serum Complement C4 Today M25.50 - Pain in unspecified joint, R76.8 - Other specified abnormal immunological findings in serum Anti DNA DS Antibody Today M25.50 - Pain in unspecified joint, R76.8 - Other specified abnormal immunological findings in serum XR knee LT 3V Today M25.561 - Pain in right knee, M25.562 - Pain in left knee, M79.641 - Pain in right hand, M79.642 - Pain in left hand XR hand LT min 3V Today M25.561 - Pain in right knee, M25.562 - Pain in left knee, M79.641 - Pain in right hand, M79.642 - Pain in left hand XR lumbar spine 2-3V Today M54.50 - Low back pain, unspecified, Z87.19 - Personal history of other diseases of the digestive system XR hip BI w PEL1V Today M54.50 - Low back pain, unspecified, Z87.19 - Personal history of other diseases of the digestive system Erythrocyte Sedimentation Rate Today M25.50 - Pain in unspecified joint, R76.8 - Other specified abnormal immunological findings in serum Comprehensive Met. Panel Today M25.50 - Pain in unspecified joint, R76.8 - Other specified abnormal immunological findings in serum DNA Double Stranded-Crithidia Today M25.50 - Pain in unspecified joint, R76.8 - Other specified abnormal immunological findings in serum Creatine Kinase Total Today M25.50 - Pain in unspecified joint, R76.8 - Other specified abnormal immunological findings in serum Aldolase Today M25.50 - Pain in unspecified joint, R76.8 - Other specified abnormal immunological findings in serum XR knee RT 3V Today M25.561 - Pain in right knee, M25.562 - Pain in left knee, M79.641 - Pain in right hand, M79.642 - Pain in left hand XR hand RT min 3V Today M25.561 - Pain in right knee, M25.562 - Pain in left knee, M79.641 - Pain in right hand, M79.642 - Pain in left hand HLA B27 Today Z87.19 - Personal history of other diseases of the digestive system Coding Level of Care Code New Pt Level 5 (71601) Diagnoses Positive double stranded DNA antibody test R76.8 Chronic bilateral low back pain without sciatica M54.50; G89.29 Chronicity: chronic Back pain laterality: bilateral Sciatica presence: without sciatica Pain in joint involving multiple sites M25.50
== END 2023-07-30 10:56 | disposition home or self-care (01) ==
LOC: HO.RHE 10:02
PROVIDERS: PCP Nurse Practitioner Family; Visit Provider Nurse Practitioner Family
DX: M79.7 Fibromyalgia (principal); R76.8 Other specified abnormal immunological findings in serum; M54.50 Low back pain, unspecified; G89.29 Other chronic pain
CPT/HCPCS: 99204

== ENCOUNTER → 2023-07-30 10:02 | Outpatient (BNVA) | payer OTHER, SELFPAY | PROVIDERS: PCP Nurse Practitioner Family; Visit Provider Nurse Practitioner Family ==

== ENCOUNTER 2023-07-30 11:00 | Outpatient (REF) | payer OTHER, SELFPAY ==
--- NOTE | ~2023-07-30 | XR_ITS ---
EXAMINATION: XR LUMBAR SPINE XR KNEE, BILATERAL XR HAND, BILATERAL XR HIP, BILATERAL CLINICAL INFORMATION: Low back pain. Bilateral hip and knee pain. Bilateral hand pain. COMPARISON: Abdominal CT 07/08/2020. TECHNIQUE: 3 views of the lumbar spine. AP radiograph of the pelvis with AP and frog-lateral views of each hip. 3 views of each knee. 3 views of each hand. FINDINGS: LUMBAR SPINE: Normal alignment and lumbar lordosis. Mild degenerative disc disease with anterior endplate osteophytes, as well as facet arthrosis with no acute osseous abnormality. There is a transitional lumbosacral junction with the right and left L5 transverse processes articulating with the sacrum and secondary degenerative change. PELVIS AND HIPS: Minimal symmetric bilateral hip osteoarthritis with small marginal osteophytes on the superior acetabular rim. No significant joint space narrowing. No fracture. No suspicious bone lesion or soft tissue calcification. RIGHT KNEE: Medial compartment narrowing. Small marginal osteophytes in the medial and patellofemoral compartments. No joint effusion. No fracture. LEFT KNEE: Small marginal osteophytes in all 3 compartments and a small joint effusion. No fracture. RIGHT HAND: Mild osteoarthritis of the 1st CMC joint and 1st interphalangeal joint. No periarticular osteopenia, erosions, or suspicious soft tissue calcifications. No acute fracture or malalignment. LEFT HAND: Mild osteoarthritis of the 1st CMC and 2nd DIP joints. Otherwise unremarkable. No periarticular osteopenia, erosions, or suspicious soft tissue calcifications. No acute fracture or malalignment. XR/XR knee RT 3V IMPRESSION: Lumbar spine: Mild multilevel degenerative disc disease. Transitional lumbosacral junction with degenerative change at the transverse process/sacral articulations. Pelvis and hips: Minimal symmetric bilateral hip osteoarthritis. No acute abnormality. Bilateral knees: Mild tricompartmental osteoarthritis. Small left knee joint effusion. Bilateral hands: Mild degenerative findings as described. No acute abnormality.
--- NOTE | ~2023-07-30 | XR_ITS ---
EXAMINATION: XR LUMBAR SPINE XR KNEE, BILATERAL XR HAND, BILATERAL XR HIP, BILATERAL CLINICAL INFORMATION: Low back pain. Bilateral hip and knee pain. Bilateral hand pain. COMPARISON: Abdominal CT 07/08/2020. TECHNIQUE: 3 views of the lumbar spine. AP radiograph of the pelvis with AP and frog-lateral views of each hip. 3 views of each knee. 3 views of each hand. FINDINGS: LUMBAR SPINE: Normal alignment and lumbar lordosis. Mild degenerative disc disease with anterior endplate osteophytes, as well as facet arthrosis with no acute osseous abnormality. There is a transitional lumbosacral junction with the right and left L5 transverse processes articulating with the sacrum and secondary degenerative change. PELVIS AND HIPS: Minimal symmetric bilateral hip osteoarthritis with small marginal osteophytes on the superior acetabular rim. No significant joint space narrowing. No fracture. No suspicious bone lesion or soft tissue calcification. RIGHT KNEE: Medial compartment narrowing. Small marginal osteophytes in the medial and patellofemoral compartments. No joint effusion. No fracture. LEFT KNEE: Small marginal osteophytes in all 3 compartments and a small joint effusion. No fracture. RIGHT HAND: Mild osteoarthritis of the 1st CMC joint and 1st interphalangeal joint. No periarticular osteopenia, erosions, or suspicious soft tissue calcifications. No acute fracture or malalignment. LEFT HAND: Mild osteoarthritis of the 1st CMC and 2nd DIP joints. Otherwise unremarkable. No periarticular osteopenia, erosions, or suspicious soft tissue calcifications. No acute fracture or malalignment. XR/XR lumbar spine 2-3V IMPRESSION: Lumbar spine: Mild multilevel degenerative disc disease. Transitional lumbosacral junction with degenerative change at the transverse process/sacral articulations. Pelvis and hips: Minimal symmetric bilateral hip osteoarthritis. No acute abnormality. Bilateral knees: Mild tricompartmental osteoarthritis. Small left knee joint effusion. Bilateral hands: Mild degenerative findings as described. No acute abnormality.
--- NOTE | ~2023-07-30 | XR_ITS ---
EXAMINATION: XR LUMBAR SPINE XR KNEE, BILATERAL XR HAND, BILATERAL XR HIP, BILATERAL CLINICAL INFORMATION: Low back pain. Bilateral hip and knee pain. Bilateral hand pain. COMPARISON: Abdominal CT 07/08/2020. TECHNIQUE: 3 views of the lumbar spine. AP radiograph of the pelvis with AP and frog-lateral views of each hip. 3 views of each knee. 3 views of each hand. FINDINGS: LUMBAR SPINE: Normal alignment and lumbar lordosis. Mild degenerative disc disease with anterior endplate osteophytes, as well as facet arthrosis with no acute osseous abnormality. There is a transitional lumbosacral junction with the right and left L5 transverse processes articulating with the sacrum and secondary degenerative change. PELVIS AND HIPS: Minimal symmetric bilateral hip osteoarthritis with small marginal osteophytes on the superior acetabular rim. No significant joint space narrowing. No fracture. No suspicious bone lesion or soft tissue calcification. RIGHT KNEE: Medial compartment narrowing. Small marginal osteophytes in the medial and patellofemoral compartments. No joint effusion. No fracture. LEFT KNEE: Small marginal osteophytes in all 3 compartments and a small joint effusion. No fracture. RIGHT HAND: Mild osteoarthritis of the 1st CMC joint and 1st interphalangeal joint. No periarticular osteopenia, erosions, or suspicious soft tissue calcifications. No acute fracture or malalignment. LEFT HAND: Mild osteoarthritis of the 1st CMC and 2nd DIP joints. Otherwise unremarkable. No periarticular osteopenia, erosions, or suspicious soft tissue calcifications. No acute fracture or malalignment. XR/XR hip BI w PEL1V IMPRESSION: Lumbar spine: Mild multilevel degenerative disc disease. Transitional lumbosacral junction with degenerative change at the transverse process/sacral articulations. Pelvis and hips: Minimal symmetric bilateral hip osteoarthritis. No acute abnormality. Bilateral knees: Mild tricompartmental osteoarthritis. Small left knee joint effusion. Bilateral hands: Mild degenerative findings as described. No acute abnormality.
--- NOTE | ~2023-07-30 | XR_ITS ---
EXAMINATION: XR LUMBAR SPINE XR KNEE, BILATERAL XR HAND, BILATERAL XR HIP, BILATERAL CLINICAL INFORMATION: Low back pain. Bilateral hip and knee pain. Bilateral hand pain. COMPARISON: Abdominal CT 07/08/2020. TECHNIQUE: 3 views of the lumbar spine. AP radiograph of the pelvis with AP and frog-lateral views of each hip. 3 views of each knee. 3 views of each hand. FINDINGS: LUMBAR SPINE: Normal alignment and lumbar lordosis. Mild degenerative disc disease with anterior endplate osteophytes, as well as facet arthrosis with no acute osseous abnormality. There is a transitional lumbosacral junction with the right and left L5 transverse processes articulating with the sacrum and secondary degenerative change. PELVIS AND HIPS: Minimal symmetric bilateral hip osteoarthritis with small marginal osteophytes on the superior acetabular rim. No significant joint space narrowing. No fracture. No suspicious bone lesion or soft tissue calcification. RIGHT KNEE: Medial compartment narrowing. Small marginal osteophytes in the medial and patellofemoral compartments. No joint effusion. No fracture. LEFT KNEE: Small marginal osteophytes in all 3 compartments and a small joint effusion. No fracture. RIGHT HAND: Mild osteoarthritis of the 1st CMC joint and 1st interphalangeal joint. No periarticular osteopenia, erosions, or suspicious soft tissue calcifications. No acute fracture or malalignment. LEFT HAND: Mild osteoarthritis of the 1st CMC and 2nd DIP joints. Otherwise unremarkable. No periarticular osteopenia, erosions, or suspicious soft tissue calcifications. No acute fracture or malalignment. XR/XR hand LT min 3V IMPRESSION: Lumbar spine: Mild multilevel degenerative disc disease. Transitional lumbosacral junction with degenerative change at the transverse process/sacral articulations. Pelvis and hips: Minimal symmetric bilateral hip osteoarthritis. No acute abnormality. Bilateral knees: Mild tricompartmental osteoarthritis. Small left knee joint effusion. Bilateral hands: Mild degenerative findings as described. No acute abnormality.
[2023-07-30 13:23] LABS: MANUAL DIFF FLAG NO
[2023-07-30 13:36] LABS: Basophils Absolute Auto 0.1 X10*3/uL (0.0-0.2); Basophils Percent Auto 0.6 % (0-2); Eosinophils Absolute Auto 0.1 X10*3/uL (0.0-0.4); Eosinophils Percent Auto 1.6 % (0-4); Hemoglobin 14.8 g/dl (12.0-16.0); Imm Gran Abs Auto 0.02 X10*3/uL (0.00-0.03); Imm Gran Pct Auto 0.2 % (0.0-0.4); Lymphocytes Absolute Auto 2.9 X10*3/uL (1.2-4.9); Lymphocytes Percent Auto 33.4 % (20-40); Mean Corpuscular HGB Conc 34.4 g/dl (31.0-35.0); Mean Corpuscular Hemoglobin 30.5 pg (27.0-33.0); Mean Corpuscular Volume 88.7 fL (80.0-98.0); Monocytes Absolute Auto 0.5 X10*3/uL (0.1-1.2); Monocytes Percent Auto 6.3 % (2-11); Neutrophils Percent Auto 57.9 % (45-73); Platelet Count 475 X10*3/uL (160-400); Red Blood Count 4.85 X10*6/uL (4.20-5.50); Red Cell Distribution Width 12.4 % (11.0-16.0); White Blood Count 8.6 X10*3/uL (4.8-10.8)
[2023-07-30 14:01] LABS: Alanine Aminotransferase 30 U/L (0-31); Albumin Level 4.3 g/dL (3.5-5.0); Alkaline Phosphatase 39 U/L (39-117); Anion Gap 11 (12-20); Aspartate Amino Transferase 21 U/L (5-31); Bilirubin Total 0.8 mg/dL (0.0-1.0); Blood Urea Nitrogen 13 mg/dL (9-16); C Reactive Protein < 0.10 mg/dL (< or = 0.50); Calcium 9.4 mg/dL (8.4-10.2); Carbon Dioxide 27 mmol/L (22-29); Chloride 105 mmol/L (96-108); Estimated Glomerular Filt Rate > 60; Glucose Random 98 mg/dL (60-115); Potassium 3.9 mmol/L (3.3-5.1); Sodium 139 mmol/L (135-145); Total Protein 7.1 g/dL (6.5-8.0)
[2023-07-30 14:31] LABS: Erythrocyte Sedimentation Rate 2 MM/HR (0-20)
[2023-08-02 09:03] LABS: Complement C3 126 mg/dL (83-193)
[2023-08-02 13:24] LABS: Anti DNA DS Antibody 9 IU/mL
[2023-08-03 15:44] LABS: DNAds, Crithidia Antibody Positive (Negative)
[2023-08-03 16:23] LABS: DNAds, Crithidia Antibody 1:10 titer (<1:10)
[2023-08-04 20:34] LABS: Aldolase 4.3 U/L (<=8.1)
== END 2023-07-30 11:01 | disposition home or self-care (01) ==
LOC: HO.10HDL 11:00
PROVIDERS: Visit Provider Nurse Practitioner Family
DX: R76.8 Other specified abnormal immunological findings in serum (principal); M79.641 Pain in right hand; M79.642 Pain in left hand; M25.561 Pain in right knee; M25.562 Pain in left knee; M54.50 Low back pain, unspecified; Z87.19 Personal history of other diseases of the digestive system
CPT/HCPCS: 36415; 72100; 73130; 73521; 73562; 80053; 82085; 82550; 85025; 85652; 86140; 86160; 86225; 86255

== ENCOUNTER 2023-08-24 09:24 | Outpatient (AMB) | payer OTHER, SELFPAY ==
--- NOTE | 2023-08-24 09:26 | A.OFFVIS_ITS ---
Intake Vital Signs 08/24/23 09:27 Height 5 ft 2 in Weight 145 lb 11.609 oz BMI 26.7 BP 140/70 H Blood Pressure Location Lt brachial Position Sitting Pulse 96 Pulse Source Pulse Oximeter Temp 97 F Temp Source Skin Pulse Oximetry (%) 97 Oxygen Delivery Method Room Air Intake Visit Reasons: +dsDNA, joint pain Intake Note: Patient last seen 07/30/23 by Wu, presents today for joint pain and +dsDNA follow up and test results. Wan Support Specialist Required: No Accompanied by: Self / Same As Patient Allergies No Known Allergies Allergy (Mild, Verified 08/24/23 09:26) NKA HPI HPI Comments History of Present Illness Details Mrs. Christianson, 62 yoF returns for follow-up of initial evaluation for malaise, positive double-stranded DNA, polyarthralgia. The patient continues with much of the same. We will review labs and imaging Initial History: Mrs. Christianson, 62 yoF presents today on referral from her PCP/Neurologist for evaluation after labs showed +dsDNA. The patient has a PMH of Hypothyroid, IBS, elevated Cholesterol, Depression, Fatigue, Migraine and Total Body pain. She has been to see the neurologist due to pain and numbness in her hands and was found to have mild ulnar neuropathy. She reports that with all the symptoms that she is experiencing they thought it could be related to the +dsDNA. She describes total body pain and chronic fatigue where she does not feel like getting out of bed. It takes much effort to get up and get dressed. Her history of UC dates back 15 years and was resolved with suppository (Dr. Mcdowell) but she does not remember the name of the medication, per patient. She reports her joint's ache often, her hands causes her to drop things because the thumbs hurt. She feels pain in her knees and lower back. Her ankles get swollen after long periods of walking. She has received cortisone injection in the right elbow where she was diagnosed with mild compression of the ulnar nerve. She had sun-poisoning 10 years ago so she avoid the sun because she garces or gets very red in the face. She visits the dentist every six months and is diagnosed with dry mouth, she uses lozenges, scrapes her tongues often. She can swallow her food without difficulty and does not suffer from GERD. She also has very dry eyes which feels like sand even after she puts in eye drops; she uses eye drops at least twice daily Patient denies Raynaud's phenomenon; denies - getting sick or developing from being out in the sun; denies blood or froth in urine; patient denies hx of SOB, chest pain. Patient denies hx of Carditis or Pleuritis. Patient denies any history of DVT/PE and reports never have had to take aspirin or a blood thinner during the successful pregnancies. Denies fevers, unexplained weight-loss or weight-gain, thinning hair or hair loss, mouth sores or ulcers. 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 Mother Breast cancer Hypothyroidism High cholesterol Diabetes mellitus HTN (hypertension) Daughter Ankylosing spondylitis Fibromyalgia Maternal Grandmother CVD (cardiovascular disease) Maternal Grandfather Lung cancer Paternal Grandfather Unknown family medical history Paternal Grandmother Unknown family medical history Maternal Aunt Melanoma Brother Melanoma Social History Housing: House Alcohol intake: current Alcohol intake frequency: holidays/special occasions only Patient Tobacco Use Status: Former Tobacco user Years Smoked: quit 35 years ago e-Cigarette/Vaping Use: Never Used Second Hand Smoke Exposure: No service: No Current occupational status: employed Current occupation: [employer] Current occupational exposures/hazards: No Sexual orientation: Straight/Heterosexual Gender identity: Female Cognitive needs: No Hearing needs: No Vision needs: No Review of Systems Const All systems reviewed & are unremarkable except as noted in HPI and below Physical Exam Vital Signs: Last Vital Signs Temp 97 F 08/24/23 09:27 Pulse 96 08/24/23 09:27 BP 140/70 H 08/24/23 09:27 Pulse Ox 97 08/24/23 09:27 Oxygen Delivery Method Room Air 08/24/23 09:27 BMI result Body Mass Index 26.7 APPEARANCE: Patient in no acute distress EYES no redness, pupils equal and reactive to light, eyelids normal EARS:? External ear normal, canal clear and tympanic membrane normal. NOSE/SINUS:? Airflow through both nares, no nasal discharge, no bleeding THROAT:? Oral mucosa dry, no ulcerations NECK:? No thyromegaly or masses, no adenopathy, trachea midline. HEART:? Regular rhythm, S1-S2 heard, no murmurs, rubs or gallops. LUNG:? Clear to percussion and auscultation ABD:? Normal bowel sounds, no organomegaly, masses or tenderness. EXTREMITIES:? No edema, no calf tenderness, normal peripheral pulses. NEURO:? Oriented and alert x3.? No focal weakness.? Reflexes symmetric.? Gait normal. SKIN:? There are no skin lesions evident. No objective signs of Raynaud's phenomenon. Redness to cheek and nose in malar form JOINT EXAM: Cervical Spine:.? Full range of motion without pain; no tenderness. Thoracic Spine:.? No scoliosis.? No tenderness on palpation. Lumbar Spine:.? Alignment normal.? Full range of motion without pain, and tenderness to palpation at SI joint R>L. Chest Wall:.? No tenderness, swelling, increased warmth or erythema. Hands:? Right:? Normal pain-free range of motion with some slight thickening at the thumb CMC and the 3rd and 4th DIP joints but none of these are tender.? Elsewhere in the hand there is no area of tenderness, swelling, increased warmth or erythema.? There is no thenar atrophy or sensory loss.? Left:? Normal pain- free range of motion with some slight thickening at the CMC joints. This is more bony than soft tissue swelling. There is diffused tenderness with palpation to the hand IP joints. There is no flexor tendon triggering, thenar atrophy or sensory loss.? No areas of tenderness or swelling. Wrists:.? Normal pain-free range of motion without tenderness, swelling, increased warmth or erythema. Elbows:. Normal pain-free range of motion without tenderness, swelling, increased warmth or erythema. Shoulders:.?? Full range of motion without pain. No tenderness, weakness, swelling, increased warmth or erythema. Hips:.? Full range of motion without pain. Hip bursa:.? No tenderness. Knees:.?? Normal pain-free range of motion without tenderness, swelling, increased warmth or erythema.? There is no effusion or crepitation Ankles:.? Normal pain-free range of motion without tenderness, swelling, increased warmth or erythema. Feet:.? Normal pain-free range of motion without tenderness, swelling, increased warmth or erythema. Tender points:? tenderness to digital palpation at the occiput, trapezius, second rib, lateral epicondyles, knees, greater trochanter and gluteal area bilaterally. Results Reviewed Results Reviewed: 08/17/2023 XR/XR lumbar spine 2-3V IMPRESSION: Lumbar spine: Mild multilevel degenerative disc disease. Transitional lumbosacral junction with degenerative change at the transverse process/sacral articulations. Pelvis and hips: Minimal symmetric bilateral hip osteoarthritis. No acute abnormality. Bilateral knees: Mild tricompartmental osteoarthritis. Small left knee joint effusion. Bilateral hands: Mild degenerative findings as described. No acute abnormality. Laboratory Tests 07/30/23 11:05 WBC 8.6 RBC 4.85 Hgb 14.8 Hct 43.0 Plt Count 475 H ESR 2 AST 21 ALT 30 Alkaline Phosphatase 39 Total Creatine Kinase 47 C-Reactive Protein < 0.10 Total Protein 7.1 Albumin 4.3 Aldolase 4.3 Double Strand DNA Ab 9 H Anti-ds DNA Titer (Crith) 1:10 H Anti-ds DNA (Crithidia) Positive A Complement C3 126 Complement C4 26 Assessment & Plan Assessment & Plan (1) Positive double stranded DNA antibody test: Code(s): R76.8 - Other specified abnormal immunological findings in serum (2) Lower back pain: Code(s): M54.50 - Low back pain, unspecified Qualifiers: Back pain laterality: bilateral Chronicity: chronic Sciatica presence: without sciatica Qualified Code(s): M54.50 - Low back pain, unspecified; G89.29 - Other chronic pain (3) Pain in joint involving multiple sites: Code(s): M25.50 - Pain in unspecified joint (4) Undifferentiated connective tissue disease: Code(s): M35.9 - Systemic involvement of connective tissue, unspecified (5) 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 The Crithidia did come back borderline positive(10) but complements were within normal limits. At this point given her arthralgias, feeling of malaise, a newly discovered livedo reticularis on bilateral legs, I think it is reasonable to start the patient on 3 weeks taper of prednisone and reassess for improvement to her joints and resolution of the livedo reticularis. The patient will take note if any changes, such as her response to different dosing levels and if ROS when stopped. If this proves to be effective at next visit I will consider to start her on hydroxychloroquine. At this point, given her clinical presentation, it is reasonable to say she has undifferentiated connective tissue disease. Imaging returned mild degenerative disc disease but I do not think this is the main source of her pain. #Livedo Riticularis:With regards to the livedo reticularis, the patient do not remember starting a new medication at the time of onset. We will use prednisone and reassess for effectiveness. I spent 30 minutes reviewing history, evaluating patient, discussing results and treatment options and documenting. RTC in 4 weeks. Initial visit: #+dsDNA: Ms. Mann, presents for evaluation of +dsDNA. Other serology results were negative for AMADEO, SSA/SSB and RF. After initial careful review of her history, records, diagnostics and a thorough PE, I do not see a case for SLE. Though dsDNA has a specificity to SLE, it is very rare to have a negative AMADEO and have SLE and if an AMADEO is negative it is recommended not to test for dsDNA. Even the the AMADEO is negative, the method of testing can cause dsDNA to be positive with low tither and is usually seen as indeterminate. She does have a redness to her cheek and nose that presents in Malar form that she says happens everyday if she is stressed or feeling anxious or goes out in the sun. The rash resolves without medication. She describes chronic fatigue. Fatigue can be caused by, among other things, anemia, endocrine and cardiovascular issues, insomnia and Depression. Her thyroid appears optimized so I think that her fatigue may be related to her depression as described in the HPI. I will note that she has the classic medley for Fibromyalgia which she expresses - total body pain, migraines, IBS, depression and fatigue. Except for the Malar redness to her face, her PE was unremarkable and she also does not appear to have kidney disease. Nevertheless, I will do further evaluation of +dsDna with confirmatory recheck and Crithidia, along with other serology. I will also do imaging of lower back, hands and knees to assess the extent of OA and if any inflammatory features that may be contributory to the joint pain. The patient reported that she was treated for UC with suppositories [address] Mcdowell. However, there is no mention in his visit notes (dating back 2011 with colonoscopy) of her history of UC. There is ample discussion on the IBS/Constipation. Medications: New prednisone 3 tablets per day x 7 days, 2 tablets per day x 7 days, 1 tablet per day x 7 days stop 50 tabs 0RF M25.561 - Pain in right knee, M25.562 - Pain in left knee, M79.641 - Pain in right hand, M79.642 - Pain in left hand, R76.8 - Other specified abnormal immunological findings in serum Coding Level of Care Code Est Pt Level 3 (23988) Diagnoses Positive double stranded DNA antibody test R76.8 Chronic bilateral low back pain without sciatica M54.50; G89.29 Back pain laterality: bilateral Chronicity: chronic Sciatica presence: without sciatica Pain in joint involving multiple sites M25.50 Undifferentiated connective tissue disease M35.9 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
[2023-08-24 09:27] VITALS: BP 140/70; PULSE 96; TEMP 36.1; O2SAT 97; BMI 26.7
== END 2023-08-24 10:18 | disposition home or self-care (01) ==
PROVIDERS: PCP Nurse Practitioner Family; Visit Provider Nurse Practitioner Family
DX: M35.89 Other specified systemic involvement of connective tissue (principal); R76.8 Other specified abnormal immunological findings in serum; G89.29 Other chronic pain; M54.50 Low back pain, unspecified; R23.1 Pallor
CPT/HCPCS: 99214

== ENCOUNTER → 2023-08-24 09:24 | Outpatient (BNVA) | payer OTHER, SELFPAY | PROVIDERS: PCP Nurse Practitioner Family; Visit Provider Nurse Practitioner Family ==

== ENCOUNTER 2023-08-31 13:36 | Outpatient (AMB) | payer OTHER, SELFPAY ==
--- NOTE | 2023-08-31 13:38 | MHC.PC.OV ---
Vital Signs 08/31/23 13:44 Height 5 ft 2 in Weight 145 lb BMI 26.5 BP 132/70 Blood Pressure Location Lt brachial Position Sitting Pulse 91 Pulse Source Pulse Oximeter Pulse Oximetry (%) 97 Oxygen Delivery Method Room Air Intake Visit Reasons: Annual PE Intake Note: pt is here for annual exam, mammo due patient aware and will schedule Process Automation Engineer Required: No Accompanied by: Self / Same As Patient Allergies No Known Allergies Allergy (Mild, Verified 08/31/23 14:07) NKA Medication List - Last Reconciled 08/31/23 by LJ Lott- alprazolam 1 mg PO TID PRN atorvastatin 20 mg PO DAILY 90 days escitalopram oxalate 20 mg PO DAILY levothyroxine 112 mcg PO QAM nortriptyline 10 mg PO BEDTIME prednisone 3 tablets per day x 7 days, 2 tablets per day x 7 days, 1 tablet per day x 7 days stop Tobacco use date assessed: 08/31/23 Dental Screening Dental Screen Date: 08/31/23 Did you have a dental visit in the last 12 months?: Yes Did you have a dental problem in the last 6 months where you did not have access to dental care?: No Was dental information given to patient?: Patient has dentist HPI Annual PE HPI Details Pt is here for a PE. Will order labs. Colon screen is up to date. Pt will schedule her own mammo. Pt has seen [facility] rheumatology due to joint pains, undifferentiated connective tissue disease, and positive double stranded DNA antibody test. She would like another opinion. Will refer to [facility]. Pt reports ongoing anxiety and depression. She reports family issues that she is currently working through. Pt does see a therapist (recently started). Denies any SI and HI. 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 Mother Breast cancer Hypothyroidism High cholesterol Diabetes mellitus HTN (hypertension) Daughter Ankylosing spondylitis Fibromyalgia Maternal Grandmother CVD (cardiovascular disease) Maternal Grandfather Lung cancer Paternal Grandfather Unknown family medical history Paternal Grandmother Unknown family medical history Maternal Aunt Melanoma Brother Melanoma Social History Housing: House Alcohol intake: current Alcohol intake frequency: holidays/special occasions only Patient Tobacco Use Status: Former Tobacco user Years Smoked: quit 35 years ago e-Cigarette/Vaping Use: Never Used Second Hand Smoke Exposure: No service: No Current occupational status: employed Current occupation: [employer] Current occupational exposures/hazards: No Sexual orientation: Straight/Heterosexual Gender identity: Female Cognitive needs: No Hearing needs: No Vision needs: No Questionnaire PHQ-9 Over the last 2 weeks, how often have you been bothered by any of the following problems? 1. Little interest or pleasure in doing things: several days 2. Feeling down, depressed, or hopeless: more than half the days 3. Trouble falling or staying asleep, or sleeping too much: more than half the days 4. Feeling tired or having little energy: nearly every day 5. Poor appetite or overeating: several days 6. Feeling bad about yourself - or that you are a failure or have let yourself or your family down: nearly every day 7. Trouble concentrating on things, such as reading the newspaper or watching television: nearly every day 8. Moving or speaking so slowly that other people could have noticed. Or the opposite - being so fidgety or restless that you have been moving around a lot more than usual: not at all 9. Thoughts that you would be better off or of hurting yourself in some way: not at all Total score: 15 Depression Screening Interpretation: Positive Depression Screening Done: Yes 13544 - PHQ-9 Billing: Yes Source: Developed by Drs. David Eldridge, Lindy Blunt, Efra Villalba and colleagues, with an educational pat from [employer]. Thrive Questionnaire Date Thrive assessed: 08/31/23 I am a: Patient What is your living situation today?: I have a steady place to live Within the past 12 months, did the food you bought not last and you didn't have the money to get more?: Never true Within the past 12 months, did you worry whether your food would run out before you got money to buy more?: Never true Do you have trouble paying for medicines?: No Do you have trouble getting transportation to medical appointments?: No Do you have trouble paying your heating and electricity bill?: No Do you have trouble taking care of your child, family member or friend?: No Do you have trouble with day-to-day activities such as bathing, preparing meals, shopping, managing finances, etc.?: No Are you currently unemployed and looking for a job?: No Are you interested in more education?: No Please select the resources that you would like help with: None Currently or been in a relationship where the following occur: no concerns reported THRIVE Score: 0 AUDIT C Alcohol Use Questionnaire (AUDIT-C) 1. How often do you have a drink containing alcohol?: Monthly or less 2. How many drinks containing alcohol do you have on a typical day when you are drinking?: 1 or 2 3. How often do you have six or more drinks on one occasion?: Never Total Score: 1 Score Reviewed/Action Taken: Yes ELROY-7 AMB Questionnaire ELROY-7 Date ELROY - 7 assessed: 08/31/23 Feeling nervous, anxious, or on edge: 3 = Nearly every day Not being able to stop or control worryin = More than half the days Worrying too much about different things: 2 = More than half the days Trouble relaxin = More than half the days Being so restless that it is hard to sit still: 1 = Several days Becoming easily annoyed or irritable: 3 = Nearly every day Feeling afraid as if something awful might happen: 1 = Several days Total ELROY-7 score (0-4 normal; 5-9 mild; 10-14 moderate; 15-21 severe): 14 Source: Developed by Drs. David Eldridge, Lindy Blunt, Efra Villalba and colleagues, with an educational pat from [employer]. ELROY-7 Assessment Billing ELROY-7 Assessment Tool: ELROY-7 Assessment 49432 (just started therapy, denies any si or hi) Review of Systems Const Denies chills and Denies fever(s) Eyes Denies blurry vision ENT Denies vertigo, Denies dizziness and Denies sore throat Card Denies chest pain at rest, Denies chest pain with activity, Denies diaphoresis, Denies dyspnea and Denies dyspnea on exertion Resp Denies cough, Denies dyspnea, Denies dyspnea on exertion and Denies wheezing GI Denies abdominal pain, Denies melena, Denies hematochezia, Denies constipation, Denies diarrhea and Denies loose stools Denies hematuria Musc Denies numbness and Denies tingling Skin/Breast Denies lesions Neuro Denies vertigo, Denies dizziness, Denies numbness and Denies tingling Psych Denies anxiety, Denies depression, Denies homicidal ideation, Denies suicidal ideation and Denies other (substance abuse) Aller/Immun Denies wheezing Physical exam (Primary Care) Vital Signs: Last Vital Signs Pulse 91 08/31/23 13:44 BP 132/70 08/31/23 13:44 Pulse Ox 97 08/31/23 13:44 Oxygen Delivery Method Room Air 08/31/23 13:44 BMI result Body Mass Index 26.5 Tobacco/Smoking Status: Tobacco use Status Tobacco use date assessed 08/31/23 08/31/23 13:47 Patient Tobacco Use Status Former Tobacco user 08/31/23 13:47 e-Cigarette/Vaping Use Never Used 08/31/23 13:47 PHQ-9: PHQ-9 Score PHQ-9: Total score 15 08/31/23 14:14 Depression Screening Interpretation: Positive Thrive Assessment: Date of Thrive Assessment Date Thrive assessed 08/31/23 08/31/23 13:55 Currently or been in a relationship where the following occur: no concerns reported Const General: cooperative Nutritional Appearance: well nourished Orientation/consciousness: patient oriented x3 HENMT Head: Yes normal to inspection, Yes normocephalic and Yes atraumatic Ears: TM's normal bilaterally Eyes General: appearance normal, both eyes and all related structures Alignment and Position: alignment normal and position normal Neck Neck: Yes normal visual inspection and Yes no lymphadenopathy Thyroid: Thyroid normal Resp Effort & Inspection: normal respiratory effort Auscultation: clear to auscultation bilaterally Cardio Rate: regular rate Rhythm: regular rhythm Heart sounds: S1 normal heart sound present, S2 normal heart sound present and no murmurs GI Palpation (GI): Soft to palpation and nontender Auscultation: normal bowel sounds Skin Rashes: no rashes Neuro General: patient oriented x3, moves all extremities, no focal motor deficits and deep tendon reflexes 2+ bilaterally Romberg Test: Negative Psych Appearance: grossly normal Mental Status: mental status grossly normal Speech and movement: Normal speech and movement present Affect: normal affect Attitude: cooperative Thought process: Normal thought process present Thought content: Normal thought content present Insight: Good insight present (Psych) Judgement: Good judgement present (Psych) Assessment and Plan Assessment & Plan (1) Physical exam: Code(s): Z00.00 - Encounter for general adult medical examination without abnormal findings (2) Vitamin D deficiency: Code(s): E55.9 - Vitamin D deficiency, unspecified Plan: lab (3) Undifferentiated connective tissue disease: Code(s): M35.9 - Systemic involvement of connective tissue, unspecified Plan: referral to rheum (4) Positive double stranded DNA antibody test: Code(s): R76.8 - Other specified abnormal immunological findings in serum (5) Pain in joint involving multiple sites: Code(s): M25.50 - Pain in unspecified joint Plan: referred to rheum Plan The patient agreed to the use of a medical services assistant for this encounter. Scribed for SHELL Scott by Patito Marie medical services assistant, on 08/31/2023 at 13:55 EST. Orders: Orders TSH reflex Free T4 Today Z00.00 - Encounter for general adult medical examination without abnormal findings UA CC w/rflx Micro + Cult Today Z00.00 - Encounter for general adult medical examination without abnormal findings Complete Blood Count Auto Diff Today Z00.00 - Encounter for general adult medical examination without abnormal findings Comprehensive [place]. Panel Fast Today Z00.00 - Encounter for general adult medical examination without abnormal findings Vitamin D 25-OH Total Today E55.9 - Vitamin D deficiency, unspecified Referrals Rheumatology Referral M25.50 - Pain in unspecified joint, M35.9 - Systemic involvement of connective tissue, unspecified, R76.8 - Other specified abnormal immunological findings in serum Coding Level of Care Code Est Pt Prev Care 40-64y(46825) Diagnoses Physical exam Z00.00 Vitamin D deficiency E55.9 Undifferentiated connective tissue disease M35.9 Positive double stranded DNA antibody test R76.8 Pain in joint involving multiple sites M25.50 Additional Codes ELROY-7 Assessment Billing - ELROY-7 Assessment Tool: ELROY-7 Assessment [id number] ([id number])
[2023-08-31 13:44] VITALS: BP 132/70; PULSE 91; O2SAT 97; BMI 26.5
== END 2023-08-31 14:47 | disposition home or self-care (01) ==
PROVIDERS: PCP Nurse Practitioner Family; Visit Provider Nurse Practitioner Family
DX: Z00.00 Encounter for general adult medical examination without abnormal findings (principal); E55.9 Vitamin D deficiency, unspecified; M35.9 Systemic involvement of connective tissue, unspecified; R76.8 Other specified abnormal immunological findings in serum; M25.50 Pain in unspecified joint
CPT/HCPCS: 99396

== ENCOUNTER 2023-09-22 09:47 | Outpatient (AMB) | payer OTHER, SELFPAY ==
--- NOTE | 2023-09-22 09:51 | A.OFFVIS_ITS ---
Intake Vital Signs 09/22/23 09:56 Height 5 ft 2 in Weight 146 lb 13.246 oz BMI 26.9 BP 100/70 Blood Pressure Location Rt brachial Position Sitting Pulse 83 Pulse Source Pulse Oximeter Temp 97 F Temp Source Skin Pulse Oximetry (%) 97 Oxygen Delivery Method Room Air Intake Visit Reasons: +dsDna, joint pain/CONFIRMED Intake Note: Patient last seen 08/24/23 by Wu, presents today for follow up. Allergies No Known Allergies Allergy (Mild, Verified 09/22/23 09:57) NKA HPI HPI Comments History of Present Illness Details Mrs. Christianson, 62 yoF returns for follow-up of initial evaluation for UCTD - malaise, positive double-stranded DNA, polyarthralgia. The patient continues with much of the same. She felt improved on the prednisone and feel the return ROS when it was done. She still feels slow moving and has brain fog. She continues with ulnar nerve symptoms to right arm, dropping things, hurts to fully extend arm. Initial History: Mrs. Christianson, 62 yoF presents today on referral from her PCP/Neurologist for evaluation after labs showed +dsDNA. The patient has a PMH of Hypothyroid, IBS, elevated Cholesterol, Depression, Fatigue, Migraine and Total Body pain. She has been to see the neurologist due to pain and numbness in her hands and was found to have mild ulnar neuropathy. She reports that with all the symptoms that she is experiencing they thought it could be related to the +dsDNA. She describes total body pain and chronic fatigue where she does not feel like getting out of bed. It takes much effort to get up and get dressed. Her history of UC dates back 15 years and was resolved with suppository (Dr. Mcdowell) but she does not remember the name of the medication, per patient. She reports her joint's ache often, her hands causes her to drop things because the thumbs hurt. She feels pain in her knees and lower back. Her ankles get swollen after long periods of walking. She has received cortisone injection in the right elbow where she was diagnosed with mild compression of the ulnar nerve. She had sun-poisoning 10 years ago so she avoid the sun because she garces or gets very red in the face. She visits the dentist every six months and is diagnosed with dry mouth, she uses lozenges, scrapes her tongues often. She can swallow her food without difficulty and does not suffer from GERD. She also has very dry eyes which feels like sand even after she puts in eye drops; she uses eye drops at least twice daily Patient denies Raynaud's phenomenon; denies - getting sick or developing from being out in the sun; denies blood or froth in urine; patient denies hx of SOB, chest pain. Patient denies hx of Carditis or Pleuritis. Patient denies any history of DVT/PE and reports never have had to take aspirin or a blood thinner during the successful pregnancies. Denies fevers, unexplained weight-loss or weight-gain, thinning hair or hair loss, mouth sores or ulcers. 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 Mother Breast cancer Hypothyroidism High cholesterol Diabetes mellitus HTN (hypertension) Daughter Ankylosing spondylitis Fibromyalgia Maternal Grandmother CVD (cardiovascular disease) Maternal Grandfather Lung cancer Paternal Grandfather Unknown family medical history Paternal Grandmother Unknown family medical history Maternal Aunt Melanoma Brother Melanoma Social History Housing: House Alcohol intake: current Alcohol intake frequency: holidays/special occasions only Patient Tobacco Use Status: Former Tobacco user Years Smoked: quit 35 years ago e-Cigarette/Vaping Use: Never Used Second Hand Smoke Exposure: No service: No Current occupational status: employed Current occupation: [employer] [place] Current occupational exposures/hazards: No Sexual orientation: Straight/Heterosexual Gender identity: Female Cognitive needs: No Hearing needs: No Vision needs: No Physical Exam Vital Signs: Last Vital Signs Temp 97 F 09/22/23 09:56 Pulse 83 09/22/23 09:56 BP 100/70 09/22/23 09:56 Pulse Ox 97 09/22/23 09:56 Oxygen Delivery Method Room Air 09/22/23 09:56 BMI result Body Mass Index 26.9 Results Reviewed Results Reviewed: 08/17/2023 XR/XR lumbar spine 2-3V IMPRESSION: Lumbar spine: Mild multilevel degenerative disc disease. Transitional lumbosacral junction with degenerative change at the transverse process/sacral articulations. Pelvis and hips: Minimal symmetric bilateral hip osteoarthritis. No acute abnormality. Bilateral knees: Mild tricompartmental osteoarthritis. Small left knee joint effusion. Bilateral hands: Mild degenerative findings as described. No acute abnormality. Laboratory Tests 07/30/23 11:05 WBC 8.6 RBC 4.85 Hgb 14.8 Hct 43.0 Plt Count 475 H ESR 2 AST 21 ALT 30 Alkaline Phosphatase 39 Total Creatine Kinase 47 C-Reactive Protein < 0.10 Total Protein 7.1 Albumin 4.3 Aldolase 4.3 Double Strand DNA Ab 9 H Anti-ds DNA Titer (Crith) 1:10 H Anti-ds DNA (Crithidia) Positive A Complement C3 126 Complement C4 26 Assessment & Plan Assessment & Plan (1) Positive double stranded DNA antibody test: Code(s): R76.8 - Other specified abnormal immunological findings in serum (2) Pain in joint involving multiple sites: Code(s): M25.50 - Pain in unspecified joint (3) Undifferentiated connective tissue disease: Code(s): M35.9 - Systemic involvement of connective tissue, unspecified (4) 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 She feels there was much improvement she could get up and do things and did not feel as malaised. The livedo reticularis on bilateral legs at the knee have markedly improved also. I think she has some undifferentiated connective autoimmune process. I will start her on hydroxychloroquine with 5 mg prednisone q.d. until hydroxychloroquine on boards. We will started hydroxychloroquine 200 mg q.day and if tolerable will increase to 200 mg b.i.d.. I discussed the possible side effects of on hydroxychloroquine. She will obtain follow-up eye exam. #Livedo Riticularis:With regards to the livedo reticularis, the patient do not remember starting a new medication at the time of onset. I think it is signifi cant enough that it is impacting her ADLs. We continue to prednisone and reassess for effectiveness. #Ulnar nerve compression: She had an EMG study that the patient says identified mild ulnar nerve compression. I will give her hand surgeon referral for surgical evaluation. I spent 30 minutes reviewing history, evaluating patient, and documenting. Follow-up in 3 months Initial visit: #+dsDNA: Ms. Mann, presents for evaluation of +dsDNA. Other serology results were negative for AMADEO, SSA/SSB and RF. After initial careful review of her history, records, diagnostics and a thorough PE, I do not see a case for SLE. Though dsDNA has a specificity to SLE, it is very rare to have a negative AMADEO and have SLE and if an AMADEO is negative it is recommended not to test for dsDNA. Even the the AMADEO is negative, the method of testing can cause dsDNA to be positive with low tither and is usually seen as indeterminate. She does have a redness to her cheek and nose that presents in Malar form that she says happens everyday if she is stressed or feeling anxious or goes out in the sun. The rash resolves without medication. She describes chronic fatigue. Fatigue can be caused by, among other things, anemia, endocrine and cardiovascular issues, insomnia and Depression. Her thyroid appears optimized so I think that her fatigue may be related to her depression as described in the HPI. I will note that she has the classic medley for Fibromyalgia which she expresses - total body pain, migraines, IBS, depression and fatigue. Except for the Malar redness to her face, her PE was unremarkable and she also does not appear to have kidney disease. Nevertheless, I will do further evaluation of +dsDna with confirmatory recheck and Crithidia, along with other serology. I will also do imaging of lower back, hands and knees to assess the extent of OA and if any inflammatory features that may be contributory to the joint pain. The patient reported that she was treated for UC with suppositories [address] Mcdowell. However, there is no mention in his visit notes (dating back 2011 with colonoscopy) of her history of UC. There is ample discussion on the IBS/Constipation. Orders: Orders Complete Blood Count Auto Diff 3 Months M35.9 - Systemic involvement of connective tissue, unspecified, Z79.60 - joint terminal attack controller (current) use of unspecified immunomodulators and immunosuppressants C Reactive Protein 3 Months M35.9 - Systemic involvement of connective tissue, unspecified, Z79.60 - joint terminal attack controller (current) use of unspecified immunomodulators and immunosuppressants Erythrocyte Sedimentation Rate 3 Months M35.9 - Systemic involvement of connective tissue, unspecified, Z79.60 - joint terminal attack controller (current) use of unspecified immunomodulators and immunosuppressants Referrals Hand Surgery Referral G56.21 - Lesion of ulnar nerve, right upper limb Medications: New hydroxychloroquine 200 mg PO DAILY 90 tabs 1RF M35.9 - Systemic involvement of connective tissue, unspecified Changed From prednisone 3 tablets per day x 7 days, 2 tablets per day x 7 days, 1 tablet per day x 7 days stop 50 tabs 0RF M35.9 - Systemic involvement of connective tissue, unspecified To prednisone 5 mg PO DAILY 90 tabs 0RF M35.9 - Systemic involvement of connective tissue, unspecified Coding Level of Care Code Est Pt Level 4 (15133) Diagnoses Positive double stranded DNA antibody test R76.8 Pain in joint involving multiple sites M25.50 Undifferentiated connective tissue disease M35.9 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
[2023-09-22 09:56] VITALS: BP 100/70; PULSE 83; TEMP 36.1; O2SAT 97; BMI 26.9
== END 2023-09-22 10:33 | disposition home or self-care (01) ==
LOC: HO.RHE 09:47
PROVIDERS: PCP Nurse Practitioner Family; Visit Provider Nurse Practitioner Family
DX: R76.8 Other specified abnormal immunological findings in serum (principal); M25.50 Pain in unspecified joint; M35.89 Other specified systemic involvement of connective tissue; R23.1 Pallor; G56.21 Lesion of ulnar nerve, right upper limb
CPT/HCPCS: 99214

== ENCOUNTER → 2023-09-22 09:47 | Outpatient (BNVA) | payer OTHER, SELFPAY | PROVIDERS: PCP Nurse Practitioner Family; Visit Provider Nurse Practitioner Family ==

== ENCOUNTER 2023-09-29 12:19 | Outpatient (AMB) | payer OTHER, SELFPAY ==
--- NOTE | 2023-09-29 12:21 | A.OFFVIS_ITS ---
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 EMG done on 05/27/22. Patient reports ongoing pain for a year. Patient has been having ongoing numbness and tingling for 8 months. 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 Patient was prescribed some pain medication which didn't give her relief. 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 She states she has ongoing pain in her right elbow which is aggravated with opening doors. She also c/o numbness and tingling for about 8 months which is now constant. She had an EMG done on 05/27/23. She was given some pain medication which did not provide her relief. 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 Mother Breast cancer Hypothyroidism High cholesterol Diabetes mellitus HTN (hypertension) Daughter Ankylosing spondylitis Fibromyalgia Maternal Grandmother CVD (cardiovascular disease) Maternal Grandfather Lung cancer Paternal Grandfather Unknown family medical history Paternal Grandmother Unknown family medical history Maternal Aunt Melanoma Brother Melanoma Social History Housing: House Alcohol intake: current Alcohol intake frequency: holidays/special occasions only Patient Tobacco Use Status: Former Tobacco user Years Smoked: quit 35 years ago e-Cigarette/Vaping Use: Never Used Second Hand Smoke Exposure: No service: No Current occupational status: employed Current occupation: [employer] [place] Current occupational exposures/hazards: No Sexual orientation: Straight/Heterosexual Gender identity: Female Cognitive needs: No Hearing needs: No Vision needs: No Review of Systems Const All systems reviewed & are unremarkable except as noted in HPI and below Physical Exam Const General: cooperative, healthy appearing, comfortable, no acute distress, well developed and alert Orientation/consciousness: patient oriented x3 HEENT Head: Yes normal to inspection, Yes normocephalic and Yes atraumatic Eyes General: appearance normal, both eyes and all related structures Neck Neck: Yes normal visual inspection and Yes no lymphadenopathy Resp Effort & Inspection: normal respiratory effort and able to speak in complete sentences Cardio Rate: regular rate Peripheral pulses: Peripheral pulses 2+ throughout GI Inspection: Yes normal to inspection Palpation (GI): Soft to palpation Skin General skin exam: no rashes or lesions noted Lesions: no lesions Rashes: no rashes Neuro General: patient oriented x3 Extrem Other: Right wrist: Normal to inspection. Tenderness along the medial aspect of the elbow along the cubital tunnel. She has dense numbness along the ulnar nerve distribution of the forarm and hand. She has weakness with abduction and adduction of the digits and also with cross fingers. Able to make a full fist and fully extend all fingers. Positive Tinel's over the cubital tunnel. Psych Appearance: grossly normal Mental Status: mental status grossly normal Results Reviewed Results Reviewed: EMG/ NCS 05/27/22 Assessment & Plan Assessment & Plan (1) Cubital tunnel syndrome on right: Code(s): G56.21 - Lesion of ulnar nerve, right upper limb Plan We discussed options which include conservative vs operative treatment. Since the patient has been symptomatic for several months and it is impacting their daily life, the decision was made to undergo right cubitall tunnel release. We discussed risk, benefits and alternatives. Risk including but not limited to infection, weakness, stiffness, ongoing numbness or tingling. The patient does understand all this and would like to proceed with right cubital tunnel release with Dr. Eller. They will be booked accordingly. Patient Instructions: Scribed for Adrianne Pang PA-C, by Luis F Abhang, medical accounts receivable specialist, on 09/29/2023 at 12:30 PM Adrianne MALONE PA-C, have personally reviewed and agree with the information entered by the scribe. Coding Level of Care Code New Pt Level 4 (90712) Diagnoses Cubital tunnel syndrome on right G56.21
== END 2023-09-29 13:32 | disposition home or self-care (01) ==
PROVIDERS: PCP Nurse Practitioner Family; Visit Provider Physician Assistant
DX: G56.21 Lesion of ulnar nerve, right upper limb (principal)
CPT/HCPCS: 99204

== ENCOUNTER → 2023-09-29 12:19 | Outpatient (BNVA) | payer OTHER, SELFPAY | PROVIDERS: PCP Nurse Practitioner Family; Visit Provider Physician Assistant ==

== ENCOUNTER 2023-11-01 06:05 | Day surgery (SDC) | payer OTHER, SELFPAY ==
[2023-10-28 10:30] VITALS: BMI 26.5
[2023-11-01 06:13] VITALS: BMI 27.0
[2023-11-01 06:25] VITALS: BP 129/79; PULSE 84; RESP 16; TEMP 37.1; O2SAT 95
[2023-11-01] MEDS: Lactated Ringers 1,000 ML 100 ML IVCONT (06:35)
--- NOTE | 2023-11-01 07:15 | HO.ANESPROP2 ---
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 (Acute) Undifferentiated connective tissue disease (Acute) Lower back pain (Acute) History of ulcerative colitis (Acute) Knee pain, bilateral (Acute) Bilateral hand pain (Acute) Pain in joint involving multiple sites (Acute) Positive double stranded DNA antibody test (Acute) Stress (Acute) Facial numbness (Acute) Visual floaters (Acute) Cervical radiculopathy (Acute) Sinusitis (Acute) Viral illness (Acute) Left knee pain (Acute) Otitis media (Acute) Right ovarian cyst (Acute) Acquired hypothyroidism (Acute) Right lower quadrant pain (Acute) Irritable bowel syndrome with constipation (Acute) Physical exam (Acute) Hypothyroid (Acute) Past Medical History Medical History (Updated 09/29/23 @ 13:30 by Adrianne Pang PA-C) Long-term use of immunosuppressant medication 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 Mother Breast cancer Hypothyroidism High cholesterol Diabetes mellitus HTN (hypertension) Daughter Ankylosing spondylitis Fibromyalgia Maternal Grandmother CVD (cardiovascular disease) Maternal Grandfather Lung cancer Paternal Grandfather Unknown family medical history Paternal Grandmother Unknown family medical history Maternal Aunt Melanoma Brother Melanoma Family history of problems with anesthesia: No Surgical History Surgical History History of breast augmentation History of laparoscopic cholecystectomy History of partial hysterectomy History of tonsillectomy History of Problems with Anesthesia: No Social History Social History Housing: House Alcohol intake: current Alcohol intake frequency: holidays/special occasions only Patient Tobacco Use Status: Former Tobacco user Years Smoked: quit 35 years ago e-Cigarette/Vaping Use: Never Used Second Hand Smoke Exposure: No Use of substances other than those prescribed or required for medical reasons: No Are you DNR?: No Advance Directives: No Advance Directives Information Provided: Yes service: No Current occupational status: employed Current occupation: [employer] Current occupational exposures/hazards: No Sexual orientation: Straight/Heterosexual Gender identity: Female Cognitive needs: No Hearing needs: No Vision needs: No Meds Allergies Allergy/AdvReac Type Severity Reaction Status Date / Time No Known Allergies Allergy Mild NKA Verified 09/29/23 12:28 Home Medications ?Medication ?Instructions ?Recorded ?Confirmed ?Last Taken ?Type alprazolam 1 mg tablet 1 mg PO TID PRN Anxiety 06/05/20 08/31/23 Unknown History nortriptyline 10 mg capsule 10 mg PO BEDTIME 06/05/20 08/31/23 Unknown History escitalopram oxalate 20 mg tablet 20 mg PO DAILY 08/24/23 08/31/23 Unknown History Exam Height,Weight and Vital Signs: Height 5 ft 2 in Weight 65.771 kg Pertinent Lab Results Pertinent Lab Results: Laboratory Tests 07/30/23 11:05 WBC 8.6 Hgb 14.8 Hct 43.0 Plt Count 475 H Sodium 139 Potassium 3.9 Chloride 105 Carbon Dioxide 27 BUN 13 Creatinine 0.66 Assessment and Plan Assessment Anesthesia Assessment: Chart Reviewed Final Anesthetic Review Family History of Problems with Anesthesia: No History of Problems with Anesthesia: No Documented by User: Nadia Quigley DO 11/01/23 07:20 [facility] Past Medical History Medical History (Updated 09/29/23 @ 13:30 by Adrianne Pang PA-C) Long-term use of immunosuppressant medication 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 Mother Breast cancer Hypothyroidism High cholesterol Diabetes mellitus HTN (hypertension) Daughter Ankylosing spondylitis Fibromyalgia Maternal Grandmother CVD (cardiovascular disease) Maternal Grandfather Lung cancer Paternal Grandfather Unknown family medical history Paternal Grandmother Unknown family medical history Maternal Aunt Melanoma Brother Melanoma Family history of problems with anesthesia: No Surgical History Surgical History History of breast augmentation History of laparoscopic cholecystectomy History of partial hysterectomy History of tonsillectomy History of Problems with Anesthesia: No Social History Social History Housing: House Alcohol intake: current Alcohol intake frequency: holidays/special occasions only Patient Tobacco Use Status: Former Tobacco user Years Smoked: quit 35 years ago e-Cigarette/Vaping Use: Never Used Second Hand Smoke Exposure: No Use of substances other than those prescribed or required for medical reasons: No Are you DNR?: No Advance Directives: No Advance Directives Information Provided: Yes service: No Current occupational status: employed Current occupation: [employer] [place] Current occupational exposures/hazards: No Sexual orientation: Straight/Heterosexual Gender identity: Female Cognitive needs: No Hearing needs: No Vision needs: No Meds Allergies Allergy/AdvReac Type Severity Reaction Status Date / Time No Known Allergies Allergy Mild NKA Verified 09/29/23 12:28 Home Medications ?Medication ?Instructions ?Recorded ?Confirmed ?Last Taken ?Type alprazolam 1 mg tablet 1 mg PO TID PRN Anxiety 06/05/20 08/31/23 Unknown History nortriptyline 10 mg capsule 10 mg PO BEDTIME 06/05/20 08/31/23 Unknown History escitalopram oxalate 20 mg tablet 20 mg PO DAILY 08/24/23 08/31/23 Unknown History Exam Exam Date and Time: November 01, 202315 Height,Weight and Vital Signs: Height 5 ft 2 in Weight 65.771 kg Height 5 ft 2 in Weight 66.905 kg Vital Signs Temperature 98.8 F 11/01/23 06:25 Pulse Rate 84 11/01/23 06:25 Respiratory Rate 16 11/01/23 06:25 Blood Pressure 129/79 11/01/23 06:25 Pulse Oximetry 95 11/01/23 06:25 Oxygen Delivery Method Room Air 11/01/23 06:25 Temperature 98.8 F 11/01/23 06:25 Pulse Rate 84 11/01/23 06:25 Respiratory Rate 16 11/01/23 06:25 Blood Pressure 129/79 11/01/23 06:25 Pulse Oximetry 95 11/01/23 06:25 Oxygen Delivery Method Room Air 11/01/23 06:25 Airway Mallampati Class: II TM Dist: >3cm Neck ROM: Full Loose/Missing/Broken Teeth: No (patient denies any loose or broken teeth) Heart: S1S2 Lungs: CTAB Assessment and Plan Assessment Anesthesia Assessment: Anesthesia Plan Discussed and Chart Reviewed Final Anesthetic Review Family History of Problems with Anesthesia: No History of Problems with Anesthesia: No NPO: Yes ASA Class: III Final Preanesthetic Review: No Changes in Pt Med Stat, Meds/Allgs Chart Reviewed, Consent Obtained/Reviewed and Anes Risks/Benef Reviewed Patient Risk: Low Procedure Risk: Low Anesthetic Plan Anesthetic Plan: GA and Agree w/ Assess. and Plan Disposition: Standard PACU
--- NOTE | 2023-11-01 07:43 | MHC.SHP ---
Pre-Procedural Eval Section A - 24 Hr Update-Section A only Date of Service: 11/01/23 The patient is an INPATIENT: No Changes since office visit: No Cold of Flu in the past 2 weeks, No New Medical Problems, No Changes in Medication and No Patient answered all questions The patient has been examined within 24 hours of the surgical procedure. The History & Physical has been completed within 30 days and I have reviewed it.: Yes Section B - Complete if H&P > 30 days Chief Complaint: Lesion of ulnar nerve, right upper limb Allergies: Allergies Allergy/AdvReac Type Severity Reaction Status Date / Time No Known Allergies Allergy Mild NKA Verified 09/29/23 12:28 Exam Exam Comment: Right Cubital tunnel syndrome Plan Diagnosis/Plan: Unchanged I have reviewed the history and physical and performed a pertinent physical examination on my patient. No changes have occurred unless specified. Time Spent With Patient Time: Total time managing care of this patient today ____ minutes.
--- NOTE | 2023-11-01 07:44 | W.PM.OPN ---
Operative Note Operative Note Date of Service: 11/01/23 Narrative: Operative Note Narrative: Preop diagnosis: 1. Right Cubital tunnel syndrome Postop diagnosis: Same Procedure: 1. Right Cubital Tunnel Release and anterior ulnar nerve transposition Surgeon: Coco Eller MD Anesthesia: General Anesthesia Findings: Anterior subluxation of the ulnar nerve at the cubital tunnel Implants: none Tourniquet time: 38 minutes EBL: 5.0 ml Specimen: none Drains: None Complications: None Disposition: Brought to the recovery room in stable condition Plan: Follow-up in 10-14 days for wound check, and suture removal Indications: The patient is 63 years old with right cubital tunnel syndrome . The risks and benefits of operative treatment, including but not limited to risk of damage to blood vessels, nerves, tendons, infection, recurrence, persistent pain or numbness, incomplete resolution of preoperative symptoms, or need for further surgery were discussed with the patient and they wished to proceed with surgery. Procedure: Once consent was obtained patient was brought back to the operating suite and placed in the operating table in a supine position. Perioperative antibiotics and anesthesia was administered by the anesthesia team. The limb was prepped and draped in a standard surgical fashion, and a sterile tourniquet applied to the proximal aspect of the right upper extremity. The limb was elevated exsanguinated with Esmarch bandage and the tourniquet inflated to 250 mm of mercury for a total tourniquet time of 38 minutes. A 6 cm gently curved but longitudinally oriented incision was made centered over the cubital tunnel of the right upper extremity. Incision was made through the skin to the subcutaneous tissues using a # 15 Blade. I then dissected down to the level of the medial epicondyle and the cubital tunnel using tenotomy scissors. Care was taken to protect the lateral antebrachial cutaneous nerve. The ulnar nerve was identified just posterior to the medial intermuscular septum. The ulnar nerve was released in a proximal to distal direction using tenotomy in iris scissors while directly visualizing and protecting the ulnar nerve. Thickening and fibrosis was appreciated about the ulnar nerve as it passed through the cubital tunnel. The ulnar nerve was assessed as I passed the elbow through full flexion and extension and was found to subluxate anteriorly over the medial epicondyle.. As the ulnar nerve appeared to subluxate over the medial epicondyle, the decision was made to proceed with an anterior ulnar nerve transposition. The subcutaneous tissue was carefully freed from the fascia anterior to the medial epicondyle creating an appropriate bed for the ulnar nerve transposition. A small vessel loop was passed behind the ulnar nerve to help facilitate its mobilization. The ulnar nerve was then freed and carefully transposed anterior to the medial epicondyle. Some of the subcutaneous tissue in the anterior flap was carefully secured to the fascia about the medial epicondyle using some 4-0 Vicryl suture material. This created a sling to prevent posterior subluxation of the ulnar nerve. The elbow was brought through flexion and extension and the ulnar nerve was evaluated in its transposition site and found to have good ability to glide and to be free from undo pressure from the anterior sling. At this point the tourniquet was deflated and hemostasis obtained with a brief period of local pressure and bipolar electrocautery. The wound was copiously irrigated with normal saline. The subcutaneous layer was closed with 4-0 Vicryl suture, and the skin edges were reapproximated using a 4-0 Monocryl suture for a subcuticular closure. Steri-Strips and Mastisol were also applied. The wound was infiltrated with some 1% lidocaine with epinephrine for postop pain control and sterile dressings and a posterior splint was applied. The patient appears to have tolerated the procedure well and with no complications. All digits were well vascularized conclusion of the case.
[2023-11-01 09:30] VITALS: BP 106/60; PULSE 93; RESP 16; TEMP 36.1; O2SAT 99
[2023-11-01 09:35] VITALS: BP 109/57; PULSE 92; RESP 16; O2SAT 94
[2023-11-01 09:40] VITALS: BP 101/56; PULSE 96; RESP 16; O2SAT 94
[2023-11-01 09:45] VITALS: BP 109/66; PULSE 92; RESP 16; O2SAT 97
[2023-11-01 10:00] VITALS: BP 107/56; PULSE 89; RESP 16; TEMP 36.1; O2SAT 97
== END 2023-11-01 11:09 | disposition home or self-care (01) ==
PROVIDERS: PCP Nurse Practitioner Family; Visit Provider Orthopaedic Surgery
PROC: (CPT 64718; principal; 2023-11-01 07:30)
DX: G56.21 Lesion of ulnar nerve, right upper limb (principal); M77.11 Lateral epicondylitis, right elbow; M25.521 Pain in right elbow; R20.0 Anesthesia of skin; R20.2 Paresthesia of skin; E03.9 Hypothyroidism, unspecified; Z79.52 Long term (current) use of systemic steroids; Z79.60 Long term (current) use of unspecified immunomodulators and immunosuppressants; Z79.899 Other long term (current) drug therapy; Z98.890 Other specified postprocedural states; Z87.891 Personal history of nicotine dependence
CPT/HCPCS: 64718; J0131; J0690; J1100; J2250; J2405; J2704; J2795; J3010

== ENCOUNTER → 2023-11-01 06:05 | Outpatient (BNV) | payer OTHER, SELFPAY | PROVIDERS: PCP Nurse Practitioner Family; Visit Provider Orthopaedic Surgery | DX: G56.21 Lesion of ulnar nerve, right upper limb (principal) | CPT/HCPCS: 64718 ==

== ENCOUNTER 2023-11-16 12:18 | Outpatient (AMB) | payer OTHER, SELFPAY ==
--- NOTE | 2023-11-16 12:36 | MHC.OFFVIS ---
Intake Visit Reasons: PO RT cubital release 11/01/23 AR Intake Note: Mackenzie 63 yr old female presents today for her PO visit for her right cubital release 11/01/23 AR. States her symptoms have improved and is doing well however today she had experienced an episode of pain in her elbow with some numbness in the ulnar aspect of hand. Allergies No Known Allergies Allergy (Mild, Verified 11/16/23 12:39) NKA HPI HPI PO RT cubital release 11/01/23 AR: Details: Mackenzie is a 63 year old right hand dominant woman, who works here in [employer], presenting S/P right cubital tunnel release with transposition, DOS: 11/01/23. She says she is doing well overall, and her symptoms have improved. She says she had an episode of numbness & pain in her elbow & ulnar aspect of her hand earlier today. 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 Mother Breast cancer Hypothyroidism High cholesterol Diabetes mellitus HTN (hypertension) Daughter Ankylosing spondylitis Fibromyalgia Maternal Grandmother CVD (cardiovascular disease) Maternal Grandfather Lung cancer Paternal Grandfather Unknown family medical history Paternal Grandmother Unknown family medical history Maternal Aunt Melanoma Brother Melanoma Social History Housing: House Alcohol intake: current Alcohol intake frequency: holidays/special occasions only Comment: counts correct Patient Tobacco Use Status: Former Tobacco user Years Smoked: quit 35 years ago e-Cigarette/Vaping Use: Never Used Second Hand Smoke Exposure: No service: No Current occupational status: employed Current occupation: [employer] Current occupational exposures/hazards: No Sexual orientation: Straight/Heterosexual Gender identity: Female Cognitive needs: No Hearing needs: No Vision needs: No Review of Systems Const All systems reviewed & are unremarkable except as noted in HPI and below Physical Exam Const General: no acute distress and alert Orientation/consciousness: patient oriented x3 Neuro General: patient oriented x3 Extrem Other: The patient was alert oriented and in no acute distress The incision is healing well with no erythema drainage or evidence of infection. Suture ends trimmed and Steri-Strips applied She can make a fist and extend all her digits Sensation is improved but not yet normal in the ulnar nerve distribution Good finger abduction and adduction Cap refill is brisk Psych Appearance: grossly normal Affect: normal affect Attitude: cooperative Assessment & Plan Assessment & Plan (1) Cubital tunnel syndrome on right: Code(s): G56.21 - Lesion of ulnar nerve, right upper limb Category: Medical Plan Assessment & Plan: 1. Right cubital tunnel syndrome, S/P release & transposition DOS: 11/01/23 Pre-operatively with dense numbness & weakness in ABduction & ADduction Now with improved but not yet normal sensation The patient appears to be doing well post-operatively I educated her about the post-operative course I explained the signs and symptoms of infection, if the patient develops any new or worsening erythema, drainage, pain, or warmth they should contact the clinic or attend the ED. I discussed activity modifications, she is to lift nothing heavier than a cellphone for the next two weeks She will perform gentle ROM exercises at home She should avoid any underwater activities for the next 5 days She should gently massage about the incision site to reduce the risk of hypersensitivity She was given a note for work to return to light duty on 11/29/23, and remain on light duty until 12/13/23 She can follow up prn Scribed for Coco Eller MD by Hamilton Herrera medical apparatus model maker, on 11/16/23 at 1:10 PM, EST. Coding Level of Care Code Global (15449) Diagnoses Cubital tunnel syndrome on right G56.21
== END 2023-11-16 13:26 | disposition home or self-care (01) ==
PROVIDERS: PCP Nurse Practitioner Family; Visit Provider Orthopaedic Surgery
DX: G56.21 Lesion of ulnar nerve, right upper limb (principal)
CPT/HCPCS: 99024

== ENCOUNTER → 2023-11-16 12:18 | Outpatient (BNVA) | payer OTHER, SELFPAY | PROVIDERS: PCP Nurse Practitioner Family; Visit Provider Orthopaedic Surgery ==

== ENCOUNTER 2023-12-21 10:32 | Outpatient (AMB) | payer OTHER, SELFPAY ==
--- NOTE | 2023-12-21 11:01 | A.OFFVIS_ITS ---
Intake Visit Reasons: PO RT cubital release 11/01/23 AR Intake Note: Mackenzie is a 63 year old left hand dominant female who presents today post operatively s/p right cubital release 11/01/23 AR. Patient reports a cold wet sensation to her elbow. States having discomfort that radiates from her elbow to her 5th and 4th digit as well as numbness and tingling. Allergies No Known Allergies Allergy (Mild, Verified 12/21/23 11:24) NKA HPI HPI PO RT cubital release 11/01/23 AR: Details: Mackenzie is a 63 year old right hand dominant woman, who works here in [employer], presenting S/P right cubital tunnel release with transposition, DOS: 11/01/23. She complains primarily of pain in her dorsal lateral forearm, which she says began when she returned to work on 11/29/23. Her pain is worse with gripping or lifting activities. She says she has been modifying her home activities to use primarily her left hand. She says she still has occasional episodes of numbness in her fingers. She says this is still improved from prior to her surgery. She reports an occasional cold & wet feeling from her elbow, she describes this as feeling like her elbow was bleeding , but denies any actual bleeding. 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 Mother Breast cancer Hypothyroidism High cholesterol Diabetes mellitus HTN (hypertension) Daughter Ankylosing spondylitis Fibromyalgia Maternal Grandmother CVD (cardiovascular disease) Maternal Grandfather Lung cancer Paternal Grandfather Unknown family medical history Paternal Grandmother Unknown family medical history Maternal Aunt Melanoma Brother Melanoma Social History Housing: House Alcohol intake: current Alcohol intake frequency: holidays/special occasions only Comment: counts correct Patient Tobacco Use Status: Former Tobacco user Years Smoked: quit 35 years ago e-Cigarette/Vaping Use: Never Used Second Hand Smoke Exposure: No service: No Current occupational status: employed Current occupation: [employer] Current occupational exposures/hazards: No Sexual orientation: Straight/Heterosexual Gender identity: Female Cognitive needs: No Hearing needs: No Vision needs: No Physical Exam Const General: no acute distress and alert Orientation/consciousness: patient oriented x3 Neuro General: patient oriented x3 Extrem Other: The patient was alert oriented and in no acute distress The incision is well-healed with no erythema drainage or evidence of infection. She can make a fist and extend all her digits Sensation is improved but not yet normal in the ulnar nerve distribution Good finger abduction and adduction With encouragement she could fully extend elbow, but she had some discomfort in the posterior aspect of the elbow when she reached full extension, likely secondary to some mild stiffness in her elbow Tender over the extensor origin just distal to the lateral epicondyle +Pain with resisted wrist extension No pain with resisted finger extension Cap refill is brisk Psych Appearance: grossly normal Affect: normal affect Attitude: cooperative Assessment & Plan Assessment & Plan (1) Cubital tunnel syndrome on right: Code(s): G56.21 - Lesion of ulnar nerve, right upper limb Category: Medical (2) Right lateral epicondylitis: Code(s): M77.11 - Lateral epicondylitis, right elbow Category: Medical Plan Assessment & Plan: 1. Right cubital tunnel syndrome, S/P release & transposition DOS: 11/01/23 Pre-operatively with dense numbness & weakness in ABduction & ADduction Now with improved but not yet normal sensation The patient appears to be doing well post-operatively I educated her about the post-operative course I discussed activity modifications, she is to work on ROM exercises at home. She is scheduled to begin OT hand therapy tomorrow, on 12/22/23 She will continue to work light duty until 12/31/23 She will follow up prn 2. Right lateral epicondylitis This is a new complaint and condition. Not recall any particular injury. I educated her about this condition I discussed treatment options She is scheduled to begin OT hand therapy on 12/22/23, I recommend she work with OT & modifying her daily activities to limit or avoid activities which cause her pain. Scribed for Coco Eller MD by Hamilton Herrera, quality engineer medical device, on 12/21/23 at 11:10 AM, EST. Coding Level of Care Code Est Pt Level 3 (65638) Diagnoses Cubital tunnel syndrome on right G56.21 Right lateral epicondylitis M77.11
== END 2023-12-21 11:46 | disposition home or self-care (01) ==
PROVIDERS: PCP Nurse Practitioner Family; Visit Provider Orthopaedic Surgery
DX: G56.21 Lesion of ulnar nerve, right upper limb (principal); M77.11 Lateral epicondylitis, right elbow
CPT/HCPCS: 99024

== ENCOUNTER → 2023-12-21 10:32 | Outpatient (BNVA) | payer OTHER, SELFPAY | PROVIDERS: PCP Nurse Practitioner Family; Visit Provider Orthopaedic Surgery ==

== ENCOUNTER → 2024-01-06 13:01 | Outpatient (REF) | payer OTHER, SELFPAY | LOC: HO.SL 13:01 | PROVIDERS: Visit Provider Internal Medicine Rheumatology | DX: G47.33 Obstructive sleep apnea (adult) (pediatric) (principal) | CPT/HCPCS: 95806 ==

== ENCOUNTER → 2024-01-06 19:00 | Outpatient (BNV) | payer OTHER, SELFPAY | PROVIDERS: Visit Provider Psychiatry & Neurology Neurology | DX: R06.83 Snoring (principal) | CPT/HCPCS: 95806 ==

== ENCOUNTER 2024-01-10 13:30 | Outpatient (RCR) | payer OTHER, SELFPAY ==
--- NOTE | 2023-12-22 09:52 | MHC.OT.EP ---
[address] [phone] Occupational Therapy Plan of Care Patient Name: Mackenzie Christianson Date of Evaluation: 12/22/23 Diagnosis: Post-op R Cubital Tunnel Release, Right elbow strain Pain Location: Mild shocking pain in right medial elbow over healed incision Hypersensitivity over olecronon Tenderness over dorsal forearlm Pain Score: 8 Pain Scale Used: Numeric (0 - 10) Aggravating Factors: General use, movement, tender to tap on olecronon Alleviating Factors: Ibuprophen or Tylenol PRN Assessment: 63 yo female w/ hx of ulnar nerve compression is now post-op right cubital tunnel release 11/01/23 w/ Dr Eller. she has since developed pain in dorsal forearm and into right lateral and posterior elbow elbow. Today on assessment, she has mild tenderness over surgical incision, but healing well and no issues w/ movement or scar. She reports pain in dorsal forearm and tenderness/hypersensitivity in posterior elbow, also w/ occasional tingling in dorsal aspect on right ring and small fingers. She is still modifying daily activities and limiting use, but symptoms are consistent w/ extensor strain/tendinitis. She has been educated on joint protection, activity modification, stretching and use of heat and massage. She will be away on vacation this following week, but I anticipate she will do well w/ course of OT on return for optimal functional gains and pain reduction. Frequency and Duration: The patient will be seen 2x/wk for 4 weeks Short Term Goals: Ind w/ scar management and soft tissue massage Ind w/ stretches and nerve glides Progress to light strengthening exercises Pt to trial nighttime wrist orthosis to reduce unintended stretching with sleep Retirement Goals: Right gross grasp >40lb Pt to report reduction of tingling in right small and ring fingers Good follow through w/ joint protection/activity modification w/ moderate daily activities Pt to report ease w/ moderate home care tasks Treatment Plan: Therapeutic Exercise Therapeutic Activity Home Exercise Program Splinting Neuro Re-ed Patient Education Desensitization/Sensory Re-ed Edema Control ADL Training Ultrasound MHP Joint Mobilization Soft Tissue Mobilization Kinesiotaping Electronically Signed By: Celine Piña, OTR/L CHT Please Sign and return to therapist. Thank you once again for your referral.
--- NOTE | 2024-01-20 10:11 | MHC.OT.DC ---
[address] [phone] F: [phone] Occupational Therapy Discharge Note Patient Name: Mackenzie Christianson Provider: Dr oCco Eller Diagnosis: Post-op R Cubital Tunnel Release, Right elbow strain Date of Surgery: 11/01/23 Date of Evaluation: 12/22/23 Treatments to Date: 4 Discharge Status: Achieved Goals Improved Function Independent with HEP Discharge Summary: Mackenzie was referred to post-op right cubital tunnel release with pain consistent w/ right extensor strain/tendintis. She has done well w/ brief course of OT, with improving pain and good follow through w/ HEP and joint protection. She is Ind with self management at this time. Electronically Signed By: Celine Piña OTR/L CHT Please Sign and return to therapist, thank you for your referral.
== END 2024-01-20 10:14 | disposition home or self-care (01) ==
LOC: HO.OT 13:30
PROVIDERS: PCP Nurse Practitioner Family; Visit Provider Orthopaedic Surgery
DX: G56.21 Lesion of ulnar nerve, right upper limb (principal)
CPT/HCPCS: 97033; 97110; 97140; 97165

== ENCOUNTER 2024-04-07 08:46 | Outpatient (REF) | payer OTHER, SELFPAY ==
--- NOTE | ~2024-04-07 | XR_ITS ---
EXAMINATION: XR CHEST 2 VIEWS CLINICAL INFORMATION: Shortness of breath R06.02. COMPARISON: XR Chest 04/25/2021 TECHNIQUE: 2 views of the chest were obtained. Exam submitted for review 06/06/2024 12:54 PM HAM BONER. FINDINGS: Cardiac, hilar, and mediastinal contours are normal. Lungs demonstrate trace linear scarring, stable, lingular region. Lungs otherwise clear bilaterally. No pneumothorax or pleural effusion. Soft tissues demonstrate cholecystectomy clips. Remainder of the bony and soft tissue structures appear normal. XR/XR chest 2V IMPRESSION: No active disease. No interval change. Electronically signed by: Zana Oliveros MD 06/06/2024 01:56 PM EST
[2024-04-07 09:07] LABS: MANUAL DIFF FLAG NO
[2024-04-07 09:44] LABS: Basophils Absolute Auto 0.1 X10*3/uL (0.0-0.2); Basophils Percent Auto 0.5 % (0-2); Eosinophils Absolute Auto 0.3 X10*3/uL (0.0-0.4); Eosinophils Percent Auto 3.5 % (0-4); Hematocrit 44.1 % (37.0-47.0); Hemoglobin 14.9 g/dl (12.0-16.0); Imm Gran Abs Auto 0.03 X10*3/uL (0.00-0.03); Imm Gran Pct Auto 0.3 % (0.0-0.4); Lymphocytes Absolute Auto 2.8 X10*3/uL (1.2-4.9); Lymphocytes Percent Auto 28.5 % (20-40); Mean Corpuscular HGB Conc 33.8 g/dl (31.0-35.0); Mean Corpuscular Hemoglobin 30.5 pg (27.0-33.0); Mean Corpuscular Volume 90.4 fL (80.0-98.0); Mean Platelet Volume 9.9 fL (9.4-12.3); Monocytes Absolute Auto 0.8 X10*3/uL (0.1-1.2); Monocytes Percent Auto 8.5 % (2-11); Neutrophils Absolute Auto 5.7 x10*3/uL (2.0-8.3); Neutrophils Percent Auto 58.7 % (45-73); Platelet Count 485 X10*3/uL (160-400); Red Blood Count 4.88 X10*6/uL (4.20-5.50); Red Cell Distribution Width 12.8 % (11.0-16.0); White Blood Count 9.7 X10*3/uL (4.8-10.8)
[2024-04-07 10:17] LABS: B Type Natriuretic Peptide < 10 pg/mL (<100)
[2024-04-07 10:25] LABS: Alanine Aminotransferase 31 U/L (0-31); Albumin Level 4.2 g/dL (3.5-5.0); Alkaline Phosphatase 42 U/L (39-117); Anion Gap 13 (12-20); Aspartate Amino Transferase 22 U/L (5-31); Blood Urea Nitrogen 8 mg/dL (9-16); Calcium 9.3 mg/dL (8.4-10.2); Carbon Dioxide 28 mmol/L (22-29); Chloride 107 mmol/L (96-108); Estimated Glomerular Filt Rate > 60; Glucose Fasting 90 mg/dL (60-99); Potassium 3.7 mmol/L (3.3-5.1); Sodium 144 mmol/L (135-145); Total Protein 6.9 g/dL (6.5-8.0)
[2024-04-07 10:41] LABS: TSH reflex Free T4 2.45 uIU/mL (0.32-4.0); Vitamin D 25-OH Total 28.8 ng/mL (>30)
[2024-04-07 13:44] LABS: Appearance Urine Clear; Color Urine Yellow; Glucose Urine UA Negative (Negative); Leukocyte Esterase Urine Small (1+) (Negative); Nitrite Urine Negative (Negative); Specific Gravity - Urine 1.015 (1.005-1.025); UMIC TRIGGER UACC YES; Urine Blood Trace (Negative); Urine Ketones Negative (Negative); Urine Protein Negative (Neg-Trace)
[2024-04-07 13:54] LABS: Bacteria Urine None Seen (None Seen); Hyaline Casts Urine 0-2 /LPF (0-2); Squamous Epithelial Cell Urine 0-2 /HPF (0-2); UACC Culture Trigger YES; WBC Urine 0-5 /HPF (0-5)
--- NOTE | 2024-04-07 14:23 | ECG_ITS ---
Test Reason : SOB Blood Pressure : / mmHG Vent. Rate : 083 BPM Atrial Rate : 083 BPM P-R Int : 176 ms QRS Dur : 068 ms QT Int : 400 ms P-R-T Axes : 041 017 038 degrees QTc Int : 470 ms Normal sinus rhythm Normal ECG When compared with ECG of 18-JUL-2010 10:48, No significant change was found Referred By: Olvin Denny Electronically Signed By:SHERINE LAMBERT MD
== END 2024-04-07 08:47 | disposition home or self-care (01) ==
LOC: HO.XRAY 08:46
PROVIDERS: PCP Nurse Practitioner Family; Visit Provider Nurse Practitioner Family
DX: Z00.00 Encounter for general adult medical examination without abnormal findings (principal); R06.02 Shortness of breath; E55.9 Vitamin D deficiency, unspecified
CPT/HCPCS: 36415; 71046; 80053; 81001; 82306; 83880; 84443; 85025; 87086; 93005

== ENCOUNTER → 2024-04-07 14:23 | Outpatient (BNV) | payer OTHER, SELFPAY | PROVIDERS: PCP Nurse Practitioner Family; Visit Provider Internal Medicine Cardiovascular Disease | DX: R06.02 Shortness of breath (principal) | CPT/HCPCS: 93010 ==

== ENCOUNTER → 2024-04-07 15:50 | Outpatient (BNV) | payer OTHER, SELFPAY | PROVIDERS: PCP Nurse Practitioner Family; Visit Provider Radiology Diagnostic Radiology | DX: R06.02 Shortness of breath (principal) | CPT/HCPCS: 71046 ==

== ENCOUNTER 2024-04-12 15:06 | Outpatient (REF) | payer OTHER, SELFPAY ==
[2024-04-12 15:49] LABS: Urine Cytology See Pathology rpt
[2024-04-12 16:37] LABS: Appearance Urine Clear; Color Urine Yellow; Glucose Urine UA Negative (Negative); Leukocyte Esterase Urine Small (1+) (Negative); Nitrite Urine Negative (Negative); PH 6.5 (5.0-9.0); UMIC TRIGGER UA YES; Urine Blood Small (1+) (Negative); Urine Ketones Negative (Negative); Urine Protein Negative (Neg-Trace)
[2024-04-12 18:41] LABS: Bacteria Urine None Seen (None Seen); Hyaline Casts Urine 0-2 /LPF (0-2); RBC Urine 0-2 /HPF (0-2); Squamous Epithelial Cell Urine 0-2 /HPF (0-2); WBC Urine 0-5 /HPF (0-5)
== END 2024-04-12 15:07 | disposition home or self-care (01) ==
LOC: HO.LAB 15:06
PROVIDERS: PCP Nurse Practitioner Family; Visit Provider Nurse Practitioner Family
DX: R31.29 Other microscopic hematuria (principal)
CPT/HCPCS: 81001; 81003; 87086; 88112

== ENCOUNTER 2024-04-21 10:35 | Day surgery (SDC) | payer OTHER, SELFPAY ==
[2024-04-21 11:24] VITALS: BP 130/83; PULSE 82; RESP 18; TEMP 36.6; O2SAT 96
[2024-04-21] MEDS: Lactated Ringers 1,000 ML 80 ML IVCONT (11:24)
[2024-04-21 11:26] VITALS: BMI 26.9
--- NOTE | 2024-04-21 11:58 | P.CONAN_ITS ---
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) Undifferentiated connective tissue disease (Acute) Lower back pain (Acute) History of ulcerative colitis (Acute) Knee pain, bilateral (Acute) Bilateral hand pain (Acute) Pain in joint involving multiple sites (Acute) Positive double stranded DNA antibody test (Acute) Stress (Acute) Facial numbness (Acute) Visual floaters (Acute) Cervical radiculopathy (Acute) Sinusitis (Acute) Viral illness (Acute) Left knee pain (Acute) Otitis media (Acute) Right ovarian cyst (Acute) Acquired hypothyroidism (Acute) Right lower quadrant pain (Acute) Irritable bowel syndrome with constipation (Acute) Physical exam (Acute) Hypothyroid (Acute) Past Medical History Medical History Long-term use of immunosuppressant medication 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 Mother Breast cancer Hypothyroidism High cholesterol Diabetes mellitus HTN (hypertension) Daughter Ankylosing spondylitis Fibromyalgia Maternal Grandmother CVD (cardiovascular disease) Maternal Grandfather Lung cancer Paternal Grandfather Unknown family medical history Paternal Grandmother Unknown family medical history Maternal Aunt Melanoma Brother Melanoma Family history of problems with anesthesia: No Surgical History Surgical History History of breast augmentation History of laparoscopic cholecystectomy History of partial hysterectomy History of tonsillectomy History of Problems with Anesthesia: No Social History Social History Housing: House Are you a primary child care director to a significant other at home: No Do you presently have visiting nurse or other home services: No Alcohol intake: current Alcohol intake frequency: holidays/special occasions only Comment: counts correct Patient Tobacco Use Status: Former Tobacco user Years Smoked: quit 35 years ago e-Cigarette/Vaping Use: Never Used Second Hand Smoke Exposure: No Have you been hit, kicked, punched, or otherwise hurt by someone within the past year? If so, by whom?: No Are you DNR?: No Advance Directives: No Advance Directives Information Provided: Yes Recently lost weight without trying: No Nutrition Risks: No Nutritional Risk service: No Current occupational status: employed 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 Current occupational exposures/hazards: No Sexual orientation: Straight/Heterosexual Gender identity: Female Cognitive needs: No Hearing needs: No Vision needs: No Meds Allergies Allergy/AdvReac Type Severity Reaction Status Date / Time No Known Allergies Allergy Mild NKA Verified 04/21/24 10:55 Active Medications: Current Medications Lactated Ringer's (Lr) 1,000 mls @ 80 mls/hr IVCONT .[id number] CHANDRIKA Last Admin: 04/21/24 11:24 Dose: 80 mls/hr Home Medications ?Medication ?Instructions ?Recorded ?Confirmed ?Last Taken ?Type alprazolam 1 mg tablet 1 mg PO TID PRN Anxiety 06/05/20 04/21/24 Unknown History nortriptyline 10 mg capsule 10 mg PO BEDTIME 06/05/20 04/21/24 Unknown History escitalopram oxalate 20 mg tablet 20 mg PO DAILY 08/24/23 04/21/24 Unknown History Exam Height,Weight and Vital Signs: Height 5 ft 2 in Weight 66.678 kg Last Vital Signs Temp 97.9 F 04/21/24 11:24 Pulse 82 04/21/24 11:24 Resp 18 04/21/24 11:24 BP 130/83 04/21/24 11:24 Pulse Ox 96 04/21/24 11:24 O2 Del Method Room Air 04/21/24 11:24 Airway Mallampati Class: I TM Dist: <=3cm Neck ROM: Full Loose/Missing/Broken Teeth: No Heart: ok Lungs: ok Assessment and Plan Assessment Anesthesia Assessment: Anesthesia Plan Discussed and Chart Reviewed Final Anesthetic Review Family History of Problems with Anesthesia: No History of Problems with Anesthesia: No NPO: Yes ASA Class: III Final Preanesthetic Review: No Changes in Pt Med Stat, Meds/Allgs Chart Reviewed, Consent Obtained/Reviewed and Anes Risks/Benef Reviewed Patient Risk: Intermediate Procedure Risk: Intermediate Anesthetic Plan Anesthetic Plan: Agree w/ Assess. and Plan and TIVA Disposition: Standard PACU
[2024-04-21 12:31] VITALS: BP 103/70; PULSE 83; RESP 18; TEMP 36.1; O2SAT 93
--- NOTE | 2024-04-21 12:38 | PM.OP ---
Brief Operative Note Date of Service: 04/21/24 Pre-op diagnosis: Dysphagia Post-op diagnosis: other (Hiatal hernia, gastritis, R/O EoE) Procedure: EGD with Balloon dilation of EG Junction with an 18 to 19 to 20mm balloon, and biopsies Surgeon: David Mcdowell MD Anesthesia: MAC Was an Apparel Machinery Instructor used for this Procedure?: No Estimated blood loss (mL): 2.0 Pathology: other (A. Gastric antrum B. Esophagus 20-25cm) Condition: stable Disposition: PACU
[2024-04-21 12:47] VITALS: BP 133/83; PULSE 70; RESP 18; TEMP 36.1; O2SAT 98
--- NOTE | 2024-04-21 13:17 | OP_ITS ---
DATE OF SERVICE: 04/21/2024 SURGEON: David Mcdowell MD INDICATIONS: The patient presents for evaluation of dysphagia. Full consent has been obtained from her for this, including risks of bleeding and perforation. PREOPERATIVE DIAGNOSIS: Dysphagia. POSTOPERATIVE DIAGNOSIS: PROCEDURE PERFORMED: Esophagogastroduodenoscopy with balloon dilation of gastroesophageal junction and biopsies. ESTIMATED BLOOD LOSS: COMPLICATIONS: ANESTHESIA: Monitored anesthesia care. ASSISTANTS: SPECIMENS: POSTOPERATIVE DIAGNOSES: Dysphagia, small hiatal hernia, mild gastritis, rule out eosinophilic esophagitis. DESCRIPTION OF PROCEDURE: The patient was placed in the left lateral decubitus position. The Olympus video gastroscope was passed in the posterior oropharynx and upper esophagus under direct vision. The scope was passed slowly into the distal esophagus. The gastroesophageal junction appeared at 35 cm. There was no evidence of any definitive esophageal ring or other narrowing. With insufflation of air, the gastroesophageal junction did seem to open normally. The scope easily entered the stomach, there was a small hiatal hernia. The scope was advanced to the pylorus, and the duodenum was cannulated to the descending portion. The duodenum including the bulb appeared normal without mass or ulceration. The scope was withdrawn back to the stomach. The gastric antrum had some mild changes of erythema and edema but no erosions or ulceration. Biopsies were obtained. There was good peristalsis. The scope was retroflexed visualizing the proximal stomach carefully, which appeared normal, without any sign of mass or ulceration. The scope was straightened and withdrawn back to the esophagus. Given her symptomatology I did use a [employer] incremental balloon to dilate the gastroesophageal junction from 18 mm to 19 mm to 20 mm at the recommended pressure for between 30 and 60 seconds each. Post dilation, there was definitely some heme and some evidence of disruption of the gastroesophageal junction. Again, there was no sign of any obvious stricture or ring prior to the dilation. There was no evidence of any esophagitis nor Pulliam esophagus. The scope was withdrawn through the remainder of the esophagus which appeared normal. There was no evidence of any retained secretions or food. There was no evidence of any proximal esophageal rings. The esophagus did not appear to be particularly dilated. Biopsies were obtained in the proximal esophagus. The scope was withdrawn from the patient. She tolerated the procedure well and was returned to the recovery area in stable condition. IMPRESSION: 1. Small hiatal hernia. 2. Mild gastritis. 3. Rule out eosinophilic esophagitis. 4. Status post balloon dilation of gastroesophageal junction. PLAN: The results of the biopsies will be checked. I am going to start her on omeprazole 20 mg daily. We shall see if the combination of the dilation today and putting her on acid suppression to minimize any possible silent reflux will help her swallowing. If things are dramatically improved and remain so, then we could simply continue this line of treatment. On the other hand, if her significant dysphagia persists, then would recommend further followup with a barium swallow and esophageal motility study to rule out any underlying esophageal motility disorder such as achalasia or possibly in relation to something such as scleroderma given her description of possible autoimmune disease. She will also continue her bowel regimen and hyoscyamine for the irritable bowel syndrome. I did advise her that the hyoscyamine could cause a dry mouth as she is already having that issue in relation to possible Sjogren's. She will be seen in followup as well. This has been discussed with her [id number], Ivana. MD KARRIE Batres/BERRY / [phone]
== END 2024-04-21 13:24 | disposition home or self-care (01) ==
PROVIDERS: PCP Nurse Practitioner Family; Visit Provider Internal Medicine
PROC: (CPT 43249; principal; 2024-04-21 11:40)
DX: R13.10 Dysphagia, unspecified (principal); K29.70 Gastritis, unspecified, without bleeding; Z87.19 Personal history of other diseases of the digestive system; K22.4 Dyskinesia of esophagus; K44.9 Diaphragmatic hernia without obstruction or gangrene; K58.1 Irritable bowel syndrome with constipation; E78.5 Hyperlipidemia, unspecified; E03.9 Hypothyroidism, unspecified; F41.9 Anxiety disorder, unspecified; Z79.899 Other long term (current) drug therapy; Z88.5 Allergy status to narcotic agent; Z98.890 Other specified postprocedural states
CPT/HCPCS: 43249; 43239; 88305; 88342; C1726; J2003; J2704

== ENCOUNTER 2024-04-27 13:15 | Emergency (ER) | payer OTHER, SELFPAY ==
--- NOTE | ~2024-04-27 | XR_ITS ---
EXAMINATION: XR KNEE, RIGHT CLINICAL INFORMATION: Fall, pain. COMPARISON: None available. TECHNIQUE: Four views of the right knee. FINDINGS: No definite fracture, dislocation, or suspicious bone lesion. Normal alignment. Mild tricompartmental joint space narrowing with minimal/early marginal osteophytes. Mild spurring of the tibial spines. There is a small to moderate size joint effusion in the suprapatellar bursa. Soft tissues appear normal. XR/XR knee RT 3V IMPRESSION: 1. No acute bony abnormalities. Normal alignment. 2. Small to moderate sized suprapatellar joint effusion. 3. Mild tricompartmental osteoarthrosis. Electronically signed by: Zana Oliveros MD 04/27/2024 03:59 PM EDT
--- NOTE | ~2024-04-27 | XR_ITS ---
EXAMINATION: XR SHOULDER, LEFT CLINICAL INFORMATION: Status post fall. COMPARISON: October 09, 2016 TECHNIQUE: AP external rotation, and scapular Y views of the left shoulder. FINDINGS: Inadequate AP view. No gross acute cortical disruption or malalignment. XR/XR shoulder LT min 2V IMPRESSION: Recommend repeat AP projection in neutral and internal rotation. Electronically signed by: Cuco Ramirez MD 04/27/2024 02:45 PM EDT
--- NOTE | ~2024-04-27 | XR_ITS ---
EXAMINATION: XR ELBOW, LEFT CLINICAL INFORMATION: Fall, pain COMPARISON: None available. TECHNIQUE: AP, lateral, and oblique views of the left elbow. FINDINGS: No fracture, dislocation, or suspicious bony lesion. Normal alignment. Joint spaces preserved. No evidence of joint effusion. Radial head intact. No soft tissue abnormality. XR/XR elbow LT min 3V IMPRESSION: Normal left elbow. Electronically signed by: Zana Oliveros MD 04/27/2024 03:53 PM EDT
--- NOTE | ~2024-04-27 | XR_ITS ---
EXAMINATION: XR KNEE, LEFT CLINICAL INFORMATION: Fall, pain. COMPARISON: 07/30/2023. 05/06/2021. TECHNIQUE: Four views of the left knee. FINDINGS: No definite fracture, dislocation, or suspicious bone lesion. Normal alignment. Mild tricompartmental joint space narrowing with minimal/early marginal osteophytes. Mild spurring of the tibial spines. There is a small to moderate size joint effusion in the suprapatellar bursa. Soft tissues appear normal. XR/XR knee LT 3V IMPRESSION: 1. No acute bony abnormalities. Normal alignment. 2. Small to moderate sized suprapatellar joint effusion. 3. Mild tricompartmental osteoarthrosis. Electronically signed by: Zana Oliveros MD 04/27/2024 03:57 PM EDT
--- NOTE | ~2024-04-27 | CT_ITS ---
EXAMINATION: CT HEAD WITHOUT CONTRAST CT CERVICAL SPINE WITHOUT CONTRAST CLINICAL INFORMATION: Fall. Pain. COMPARISON: Brain MRI from 06/23/2023. TECHNIQUE: Contiguous axial imaging was performed from the skull base to vertex without intravenous administration of contrast. Contiguous axial imaging was performed from the upper chest through the skull base without intravenous administration of contrast. Coronal and sagittal reformats were obtained at the acquisition workstation. This CT examination was performed using dose optimization techniques as appropriate, variously including the following: *Automated exposure control. *Adjustment of mA and/or kV according to patient size (this includes techniques or standardized protocols for targeted exams where dose is matched to indication/reason for exam; i.e. extremities or head). *Use of iterative reconstruction technique. DLP: 823 mGy-cm FINDINGS: Head: There is no evidence of acute intracranial hemorrhage or edematous territorial infarction. Delacruz-white matter differentiation is preserved. There is no abnormal attenuation within the brain parenchyma. The ventricles are normal in morphology and size. No evidence for obstructive hydrocephalus. No abnormal mass effect or midline shift. No extra-axial fluid collections. No acute soft tissue or osseous abnormalities. Persistent metopic suture. The mastoid air cells and visualized paranasal sinuses are clear. Cervical Spine: The atlantooccipital and atlantoaxial articulations remain well aligned. Straightening of the normal cervical lordosis. Otherwise, there is anatomic alignment of the vertebral bodies and posterior elements. No evidence of acute fracture or subluxation. The vertebral body heights are maintained. Moderate degenerative disc disease from C4 to C7. Mild degenerative disc disease at all additional levels. There is no prevertebral soft tissue swelling. The thyroid gland and remaining cervical soft tissues are within normal limits. The lung apices demonstrate no abnormalities. CT/CT cervical spine wo IV con IMPRESSION: 1. No evidence of acute intracranial hemorrhage or edematous territorial infarction. 2. No evidence of acute fracture or traumatic subluxation of the cervical spine. 3. Mild to moderate multilevel degenerative spondyloarthropathy of the cervical spine. Electronically signed by: Jeffrey Lopez DO 04/27/2024 03:54 PM EDT
[2024-04-27 13:27] VITALS: BMI 24.9
[2024-04-27 14:21] VITALS: PULSE 71; RESP 18; O2SAT 97
--- NOTE | 2024-04-27 14:30 | ED_ITS ---
HPI - Fall General Chief Complaint: Fall Stated Complaint: fall at work Time Seen by Provider: 04/27/24 13:57 History of Present Illness HPI Narrative: Patient is a 63-year-old female she slipped in the cafeteria. Subsequently hitting her left shoulder also bilateral knee. Now has numbness tingling down the left upper extremity. Question if she hit her head. She is not on any blood thinners. There is no dizziness prior. Completely mechanical as there was salad dressing on the ground. 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 History of high cholesterol not on blood thinners. Related Data Home Medications ?Medication ?Instructions ?Recorded ?Confirmed alprazolam 1 mg tablet 1 mg PO TID PRN Anxiety 06/05/20 04/21/24 nortriptyline 10 mg capsule 10 mg PO BEDTIME 06/05/20 04/21/24 escitalopram oxalate 20 mg tablet 20 mg PO DAILY 08/24/23 04/21/24 Previous Rx's ?Medication ?Instructions ?Recorded hydroxychloroquine 200 mg tablet 200 mg PO DAILY #90 tabs 09/22/23 atorvastatin 20 mg tablet 20 mg PO DAILY 90 days #90 tabs 01/22/24 levothyroxine 112 mcg tablet 112 mcg PO QAM #90 tabs 03/06/24 Allergies Allergy/AdvReac Type Severity Reaction Status Date / Time No Known Allergies Allergy Mild NKA Verified 04/27/24 13:28 Review of Systems Review of Systems: Positive head injury Positive injury to bilateral knee and also to the shoulder on the left side Yes all other systems are reviewed and are negative [facility] Past Medical History Attestation statement: The following information was validated with the patient. 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 Mother Breast cancer Hypothyroidism High cholesterol Diabetes mellitus HTN (hypertension) Daughter Ankylosing spondylitis Fibromyalgia Maternal Grandmother CVD (cardiovascular disease) Maternal Grandfather Lung cancer Paternal Grandfather Unknown family medical history Paternal Grandmother Unknown family medical history Maternal Aunt Melanoma Brother Melanoma Social History Social History Housing: House Are you a primary healthcare sales representative to a significant other at home: No Do you presently have visiting nurse or other home services: No Alcohol intake: current Alcohol intake frequency: holidays/special occasions only Comment: counts correct Patient Tobacco Use Status: Former Tobacco user Years Smoked: quit 35 years ago Smoked in Last 30 Days: No e-Cigarette/Vaping Use: Never Used Second Hand Smoke Exposure: No Use of substances other than those prescribed or required for medical reasons: No Advance Directives: No Advance Directives Information Provided: Yes Do you have a plan to hurt others: No Plan Patient : No service: No Current occupational status: employed Current occupation: [employer] Current occupational exposures/hazards: No Sexual orientation: Straight/Heterosexual Gender identity: Female Cognitive needs: No Hearing needs: No Vision needs: No Physical Exam Vital Signs: Vital Signs: Last Vital Signs Pulse 71 04/27/24 14:21 Resp 18 04/27/24 14:21 Pulse Ox 97 04/27/24 14:21 O2 Del Method Room Air 04/27/24 14:21 BMI result Body Mass Index 24.9 Appearance: Alert. Oriented X3. No acute distress. Eyes: Pupils equal, round and reactive to light. ENT: Pharynx normal. Neck: Normal inspection. Trachea is midline there is no posterior C-spine tenderness elicited on palpation CVS: Normal heart rate and rhythm. Pulses normal. Normal S1 and S2 Respiratory: No respiratory distress. Breath sounds normal. No Wheezing. No rales Abdomen: Soft and nontender. No rigidity. No distention. good BS x4 Skin: Skin warm and dry. Normal skin color. Normal skin turgor. Extremities: Positive pain on palpation of the left shoulder limited range of motion secondary to pain. Sensation over the axillary median ulnar and radial nerves grossly intact. Capillary refill less than 2 seconds. There is no anatomical snuffbox tenderness. There is good movement of the wrist. Skin is intact. Neuro: Oriented X 3. No motor deficit. No sensory deficit. Moving all extermities. No slurred speech Medications Administered Discontinued Medications Generic Name Dose Route Start Last Admin Trade Name Freq PRN Reason Stop Dose Admin Oxycodone HCl 5 mg 04/27/24 14:35 04/27/24 15:04 Oxycodone Hcl Immed Release 5 Mg Tablet PO 04/27/24 14:36 5 mg ONCE ONE Administration Medical Decision Making Medical Decision Making MDM Narrative: X-rays and CT ordered. Patient in no acute distress. Patient's fall was mecha nical. History not consistent with having irregular heartbeats. My interpretation of patient's x-ray of the shoulder was grossly negative. Additional x-ray of the elbow of the knees and CT head and C-spine are pending. Differential Diagnosis Differential Diagnoses: The differential diagnosis associated with the presentation includes Head injury, shoulder injury Admission/Observation Consideration of admission/observation: Escalation of care including admissio n/observation considered Independent Interpretation I performed an independent interpretation of an: Plain X-Ray (Left shoulder x- ray was negative for fracture) Radiology Impression Discussion of test interpretation with radiology: I have reviewed the radiologist's reading. Discharge Plan Discharge Clinical Impression: Head injury, Contusion Patient Disposition: Still a Patient Prescriptions: No Action atorvastatin 20 mg tablet 20 mg PO DAILY 90 Days Qty: 90 1RF levothyroxine 112 mcg tablet 112 mcg PO QAM Qty: 90 1RF alprazolam 1 mg tablet 1 mg PO TID PRN (Reason: Anxiety) nortriptyline 10 mg capsule 10 mg PO BEDTIME hydroxychloroquine 200 mg tablet 200 mg PO DAILY Qty: 90 1RF escitalopram oxalate 20 mg tablet 20 mg PO DAILY Print Language: Spanish
[2024-04-27] MEDS: oxyCODONE HCl Immed Release 5 MG TABLET PO (15:04)
[2024-04-27 16:12] VITALS: BP 122/76; PULSE 76; RESP 16; O2SAT 98
== END 2024-04-27 16:39 | disposition home or self-care (01) ==
PROVIDERS: Emergency Provider Emergency Medicine Emergency Medical Services; PCP Nurse Practitioner Family
DX: S09.90XA Unspecified injury of head, initial encounter (principal); S00.93XA Contusion of unspecified part of head, initial encounter; W01.0XXA Fall on same level from slipping, tripping and stumbling without subsequent striking against object, initial encounter; Y93.89 Activity, other specified; Y92.233 Cafeteria of hospital as the place of occurrence of the external cause; Y99.0 Civilian activity done for income or pay; M25.562 Pain in left knee; M25.561 Pain in right knee; M54.2 Cervicalgia; M25.522 Pain in left elbow; M25.512 Pain in left shoulder
CPT/HCPCS: 70450; 72125; 73030; 73080; 73562; 99284

== ENCOUNTER → 2024-04-27 13:55 | Outpatient (BNV) | payer OTHER, SELFPAY | PROVIDERS: Emergency Provider Emergency Medicine Emergency Medical Services; PCP Nurse Practitioner Family; Visit Provider Radiology Diagnostic Radiology | DX: R20.9 Unspecified disturbances of skin sensation (principal) | CPT/HCPCS: 73030; 73080; 73562 ==

== ENCOUNTER 2024-05-01 13:56 | Outpatient (AMB) | payer OTHER, SELFPAY ==
--- NOTE | 2024-05-01 14:08 | MHC.OFFVIS ---
Vital Signs 05/01/24 14:12 Height 5 ft 4 in Weight 145 lb BMI 24.9 Intake Visit Reasons: FC, Left shoulder severe pain inj 04/27/24 Intake Note: Mackenzie a 63 year old female who presents today for a WC injury of left shoulder s/p fall on 04/27/24. Patient reports that she had slipped on salad dressing that was on the floor in the cafeteria at work. States when she fell her left arm went back. She has pain with any movement for her arm. Numbness and tingling in her fingers that is also now in her right hand. Finds no relief Tylenol. She continues to wear arm sling and removes for gentle arm movements and at night she will sleep half of the night with sling off. Allergies No Known Allergies Allergy (Mild, Verified 05/01/24 14:09) NKA Medication List - Last Reconciled 05/01/24 by Adrianne Pang PA-C alprazolam 1 mg PO TID PRN atorvastatin 20 mg PO DAILY 90 days escitalopram oxalate 20 mg PO DAILY hydroxychloroquine 200 mg PO DAILY levothyroxine 112 mcg PO QAM nortriptyline 10 mg PO BEDTIME HPI HPI FC, Left shoulder severe pain inj 04/27/24: Details: 63-year-old female who presents to the office today for an evaluation of chronic left shoulder injury, 04/27/24. She reports she slipped on salad dressing that was on the floor in the cafeteria at work and sustained a fall where her left arm went back. She currently states she has pain that comes with any movement of her arm. She also experiences numbness and tingling in her fingers that is also now in her right hand. She finds no relief with Tylenol. She has been wearing an arm sling as instructed. She had a left shoulder injection on 04/27/24. 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 Mother Breast cancer Hypothyroidism High cholesterol Diabetes mellitus HTN (hypertension) Daughter Ankylosing spondylitis Fibromyalgia Maternal Grandmother CVD (cardiovascular disease) Maternal Grandfather Lung cancer Paternal Grandfather Unknown family medical history Paternal Grandmother Unknown family medical history Maternal Aunt Melanoma Brother Melanoma Social History Housing: House Are you a primary certified caregiver to a significant other at home: No Do you presently have visiting nurse or other home services: No Alcohol intake: current Alcohol intake frequency: holidays/special occasions only Comment: counts correct Patient Tobacco Use Status: Former Tobacco user Years Smoked: quit 35 years ago e-Cigarette/Vaping Use: Never Used Second Hand Smoke Exposure: No service: No Current occupational status: employed [place] [employer] [place] Current occupational exposures/hazards: No Sexual orientation: Straight/Heterosexual Gender identity: Female Cognitive needs: No Hearing needs: No Vision needs: No Review of Systems Const All systems reviewed & are unremarkable except as noted in HPI and below Physical Exam Vital Signs: BMI result Body Mass Index 24.9 Const General: cooperative and no acute distress Orientation/consciousness: patient oriented x3 Resp Effort & Inspection: normal respiratory effort and able to speak in complete sentences Cardio Peripheral pulses: Peripheral pulses 2+ throughout Neuro General: patient oriented x3 Extrem Other: Left shoulder: Normal to inspection. Tenderness over the bicipital groove and along the deltoid region of the shoulder. Forward flexion to 90, external rotation to 45, internal rotation to S1. Significant discomfort with RTC strength. Negative Yang and cross body abduction. NVI. ? Results Reviewed Results Reviewed: Xrays were obtained in the office today and personally reviewed by me of the left shoulder are negative for obvious fracture or dislocations. Assessment & Plan Assessment & Plan (1) Derangement of left shoulder joint: Code(s): M24.9 - Joint derangement, unspecified Category: Medical (2) Injury of left rotator cuff: Code(s): S46.002A - Unspecified injury of muscle(s) and tendon(s) of the rotator cuff of left shoulder, initial encounter Category: Medical Qualifiers: Encounter type: initial encounter Qualified Code(s): S46.002A - Unspecified injury of muscle(s) and tendon(s) of the rotator cuff of left shoulder, initial encounter Plan We discussed options which include PT, NSAIDs. The patient will proceed with PT and NSAIDs. I recommend An MRI of the left shoulder to further evaluate the source of her pain. She will remain out of work for 2 weeks pending MRI. Orders: Orders XR shoulder LT min 2V Today M25.512 - Pain in left shoulder MR shoulder LT wo con Today S46.009A - Unspecified injury of muscle(s) and tendon(s) of the rotator cuff of unspecified shoulder, initial encounter Medications: New celecoxib (Celebrex) 200 mg PO BID 60 caps 3RF 30 days Patient Instructions: Scribed for Adrianne Pang PA-C, by Luis F Addison medical record coder, on 05/01/2024 at 2:15 PM EST.? I, Adrianne Pang PA-C, have personally reviewed and agree with the information entered by the scribe. Coding Level of Care Code Est Pt Level 3 (72174) Complex EM visit Add On G2211 Diagnoses Derangement of left shoulder joint M24.9 Injury of left rotator cuff, initial encounter S46.002A Encounter type: initial encounter
[2024-05-01 14:12] VITALS: BMI 24.9
== END 2024-05-01 14:54 | disposition home or self-care (01) ==
LOC: HO.HOS 13:57
PROVIDERS: PCP Nurse Practitioner Family; Visit Provider Physician Assistant
DX: M24.9 Joint derangement, unspecified (principal); S46.002A Unspecified injury of muscle(s) and tendon(s) of the rotator cuff of left shoulder, initial encounter
CPT/HCPCS: 99213

== ENCOUNTER 2024-05-01 13:56 | Outpatient (REF) | payer OTHER, SELFPAY ==
--- NOTE | ~2024-05-01 | XR_ITS ---
EXAMINATION: XR SHOULDER, LEFT CLINICAL INFORMATION: Left shoulder pain. COMPARISON: 04/27/2024. TECHNIQUE: Three views of the left shoulder. FINDINGS: No fracture, dislocation, or suspicious focal bony abnormality. There is normal alignment of the glenohumeral joint and AC joint. The subacromial space is preserved. Minimal degenerative AC joint changes. No abnormal soft tissue calcification. Otherwise, soft tissues, ribs, and left lung are normal in appearance. XR/XR shoulder LT min 2V IMPRESSION: -No acute bony or soft tissue abnormality left shoulder joint. -Mild AC joint arthritis. Electronically signed by: Zana Oliveros MD 05/04/2024 12:08 PM [facility]
== END 2024-05-01 13:57 | disposition home or self-care (01) ==
LOC: HO.HOSX 13:56
PROVIDERS: PCP Nurse Practitioner Family; Visit Provider Physician Assistant
DX: M25.512 Pain in left shoulder (principal)
CPT/HCPCS: 73030

== ENCOUNTER → 2024-05-01 14:17 | Outpatient (BNV) | payer OTHER, SELFPAY | PROVIDERS: PCP Nurse Practitioner Family; Visit Provider Radiology Diagnostic Radiology | DX: M19.012 Primary osteoarthritis, left shoulder (principal) | CPT/HCPCS: 73030 ==

== ENCOUNTER → 2024-05-03 17:11 | Outpatient (BNV) | payer OTHER, SELFPAY | PROVIDERS: PCP Nurse Practitioner Family; Visit Provider Radiology Diagnostic Radiology | DX: M25.512 Pain in left shoulder (principal) | CPT/HCPCS: 73221 ==

== ENCOUNTER 2024-05-03 17:12 | Outpatient (REF) | payer OTHER, SELFPAY ==
--- NOTE | ~2024-05-03 | MR_ITS ---
EXAMINATION: MR SHOULDER WITHOUT CONTRAST, LEFT CLINICAL INFORMATION: Left shoulder pain radiating down entire arm with associated numbness. Fall April 27. COMPARISON: None available. TECHNIQUE: MRI of the shoulder without contrast was performed on a high-field scanner. FINDINGS: BONE MARROW: -Bone marrow edema throughout the greater tuberosity with associated T1 fracture lines, consistent with nondisplaced comminuted fracture. -No additional bone marrow edema. ROTATOR CUFF: -Supraspinatus demonstrates approximate 50% undersurface tear/fraying of the anterior and mid tendon, with sagittal diameter of approximately 9 mm. (Series 8, image 11). No full-thickness tear present. Mild tendinosis of the most distal tendon abutting of the footplate attachment. No gross tendinous retraction or myotendinous injury. Mild undersurface fraying at the myotendinous junction. -Subscapularis tendon is intact with mild intrasubstance increased signal suggesting mild tendinosis. The muscle is intact and normal in signal. -Infraspinatus tendon is intact and normal in signal. Muscle is normal. -Teres minor tendon and muscle are intact and normal in appearance. LONG HEAD OF THE BICEPS TENDON: -Intact and normal in signal. The rotator cuff interval is normal. ACROMION: -The undersurface of the acromion is neutral with no subacromial spur. -AC joint demonstrates mild to moderate degenerative changes, capsular distention and mild predominately superior osteophytic spurring. No evidence of outlet impingement. LABRUM/CAPSULE: -No gross labral tear identified. Sublabral foramen suspected in the anterior superior labrum. Superior labrum demonstrates is mildly diffusely increased signal suggesting intrasubstance degeneration. GLENOHUMERAL JOINT AND CARTILAGE: -No cartilage defects. -Normal-appearing glenohumeral joint. MR/MR shoulder LT wo con IMPRESSION: 1. Comminuted nondisplaced fracture greater tuberosity of the humerus. 2. Approximately 50% undersurface critical zone tear/fraying of the supraspinatus tendon. No full-thickness tearing or tendon retraction. No rotator cuff atrophy. 3. No additional rotator cuff tear. Mild tendinosis of the subscapularis tendon and supraspinatus tendon near the footplate attachment. 4. Nonspecific fluid in the subacromial/subdeltoid bursa, in the setting of fracture. 5. Mild to moderate degenerative arthrosis in the AC joint. 6. No supraspinatus outlet impingement. Electronically signed by: Zana Oliveros MD 05/04/2024 04:55 PM [facility]
== END 2024-05-03 17:13 | disposition home or self-care (01) ==
LOC: HO.MRI 17:12
PROVIDERS: PCP Nurse Practitioner Family; Visit Provider Physician Assistant
DX: S46.002A Unspecified injury of muscle(s) and tendon(s) of the rotator cuff of left shoulder, initial encounter (principal)
CPT/HCPCS: 73221

== ENCOUNTER 2024-05-05 08:29 | Outpatient (AMB) | payer OTHER, SELFPAY ==
--- NOTE | 2024-05-05 08:34 | A.OFFVIS_ITS ---
Intake Visit Reasons: ov- MRI review shoulder Allergies No Known Allergies Allergy (Mild, Verified 05/01/24 14:09) NKA HPI HPI ov- MRI review shoulder: Details: MRi f/u left shoulder. Patient states she continues to have pain in the left shoulder and is unable to lift the arm. 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 Mother Breast cancer Hypothyroidism High cholesterol Diabetes mellitus HTN (hypertension) Daughter Ankylosing spondylitis Fibromyalgia Maternal Grandmother CVD (cardiovascular disease) Maternal Grandfather Lung cancer Paternal Grandfather Unknown family medical history Paternal Grandmother Unknown family medical history Maternal Aunt Melanoma Brother Melanoma Social History Housing: House Are you a primary child care center assistant director to a significant other at home: No Do you presently have visiting nurse or other home services: No Alcohol intake: current Alcohol intake frequency: holidays/special occasions only Comment: counts correct Patient Tobacco Use Status: Former Tobacco user Years Smoked: quit 35 years ago e-Cigarette/Vaping Use: Never Used Second Hand Smoke Exposure: No service: No Current occupational status: employed 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 [place] Current occupational exposures/hazards: No Sexual orientation: Straight/Heterosexual Gender identity: Female Cognitive needs: No Hearing needs: No Vision needs: No Review of Systems Const All systems reviewed & are unremarkable except as noted in HPI and below Physical Exam Const General: cooperative and no acute distress Orientation/consciousness: patient oriented x3 Resp Effort & Inspection: normal respiratory effort and able to speak in complete sentences Cardio Peripheral pulses: Peripheral pulses 2+ throughout Neuro General: patient oriented x3 Telehealth Telehealth Telehealth Platform: Telephone Location of provider rendering services: practice address Location of patient: address on file Patient Identification confirmed using: Name, : Yes Telehealth method: voice only Patient verbally consented to treatment: Yes Patient verbally consented to billing insurance company: Yes Patient informed of any privacy concerns related to visit: Yes Minutes spent on Phone/Video with Pt.: 10 Results Reviewed Results Reviewed: MR shoulder LT wo con IMPRESSION: 1. Comminuted nondisplaced fracture greater tuberosity of the humerus. 2. Approximately 50% undersurface critical zone tear/fraying of the supraspinatus tendon. No full-thickness tearing or tendon retraction. No rotator cuff atrophy. 3. No additional rotator cuff tear. Mild tendinosis of the subscapularis tendon and supraspinatus tendon near the footplate attachment. 4. Nonspecific fluid in the subacromial/subdeltoid bursa, in the setting of fracture. 5. Mild to moderate degenerative arthrosis in the AC joint. 6. No supraspinatus outlet impingement. Assessment & Plan Assessment & Plan (1) Fracture of greater tuberosity of left humerus: Code(s): S42.252A - Displaced fracture of greater tuberosity of left humerus, initial encounter for closed fracture Category: Medical Qualifiers: Encounter type: initial encounter Fracture type: closed Fracture alignment: nondisplaced Qualified Code(s): S42.255A - Nondisplaced fracture of greater tuberosity of left humerus, initial encounter for closed fracture Plan: I discussed with the patient the extent of her MRI. She does have a greater tuberosity fracture which will take at least 6 weeks for the bone to begin healing. I did explain it will not be strong at that time, typically 12 weeks for strong bony healing. We will begin PT for ROM and periscap stabilization. No RTC strength. I did explain once we have reached 6-8 weeks post injury, we can begin gentle RTC activity. She will remain out of work until I see her back in 6 weeks with xrays, sooner if needed. Coding Level of Care Code Tele Est Pt Level 3 (33273) Complex EM visit Add On G2211 Diagnoses Closed nondisplaced fracture of greater tuberosity of left humerus, initial encounter S42.255A Encounter type: initial encounter Fracture type: closed Fracture alignment: nondisplaced
== END 2024-05-05 08:43 | disposition home or self-care (01) ==
LOC: HO.HOS 08:29
PROVIDERS: PCP Nurse Practitioner Family; Visit Provider Physician Assistant
DX: S42.255A Nondisplaced fracture of greater tuberosity of left humerus, initial encounter for closed fracture (principal)
CPT/HCPCS: 99213; G2211

== ENCOUNTER → 2024-05-05 08:29 | Outpatient (BNVA) | payer OTHER, SELFPAY | PROVIDERS: PCP Nurse Practitioner Family; Visit Provider Physician Assistant ==

== ENCOUNTER 2024-05-24 12:58 | Outpatient (REF) | payer OTHER, SELFPAY ==
--- NOTE | ~2024-05-24 | XR_ITS ---
EXAMINATION: Single view right knee. Single view left knee. CLINICAL INFORMATION: Pain in the knees. COMPARISON: X-rays of the right and left knees March 2024 TECHNIQUE: Single patella sunrise views of both the right and left knees FINDINGS: Right knee: Mild osteoarthritis of the patellofemoral compartment manifested by marginal osteophytes without joint space narrowing. Left knee possible tiny marginal osteophytes without joint space narrowing indicative of a possible minimal osteoarthritis XR/XR knee RT 1V IMPRESSION: Right knee limited: Mild osteoarthritis of patellofemoral compartment. Left knee limited: Possible mild osteoarthritis Electronically signed by: Malcolm Nunez MD 05/28/2024 01:58 PM EST RP
--- NOTE | ~2024-05-24 | XR_ITS ---
EXAMINATION: Single view right knee. Single view left knee. CLINICAL INFORMATION: Pain in the knees. COMPARISON: X-rays of the right and left knees March 2024 TECHNIQUE: Single patella sunrise views of both the right and left knees FINDINGS: Right knee: Mild osteoarthritis of the patellofemoral compartment manifested by marginal osteophytes without joint space narrowing. Left knee possible tiny marginal osteophytes without joint space narrowing indicative of a possible minimal osteoarthritis XR/XR knee LT 1V IMPRESSION: Right knee limited: Mild osteoarthritis of patellofemoral compartment. Left knee limited: Possible mild osteoarthritis Electronically signed by: Malcolm Nunez MD 05/28/2024 01:58 PM EST
== END 2024-05-24 12:59 | disposition home or self-care (01) ==
LOC: HO.HOSX 12:58
PROVIDERS: Visit Provider Physician Assistant
DX: M25.562 Pain in left knee (principal); M25.561 Pain in right knee
CPT/HCPCS: 73560

== ENCOUNTER 2024-05-24 13:27 | Outpatient (AMB) | payer OTHER, SELFPAY ==
--- NOTE | 2024-05-24 13:28 | A.OFFVIS_ITS ---
Vital Signs 05/24/24 13:50 Height 5 ft 4 in Weight 145 lb BMI 24.9 Intake Visit Reasons: Newprob-B/L knee pain/left knee worse-DOI 04/27/24 Intake Note: Mackenzie a 63 year old female who presents today for an evaluation of bilateral knee pain, DOI 04/27/24. Patient reports that she sustained a fall at work, she was recently seen for her left humerus fracture from the same injury. Her left knee pain presented that same day and the following day right knee pain presented. Currently her right knee causes her the most discomfort. She continues to have bruising and swelling in both knees. Her pain increases with walking and is unable to kneel down. She complains of bilateral hip pain, stating her discomfort is in her hip joints. Allergies No Known Allergies Allergy (Mild, Verified 05/24/24 13:49) NKA Medication List - Last Reconciled 05/24/24 by Adrianne Pang PA-C alprazolam 1 mg PO TID PRN atorvastatin 20 mg PO DAILY 90 days celecoxib (Celebrex) 200 mg PO BID 30 days escitalopram oxalate 20 mg PO DAILY hydroxychloroquine 200 mg PO DAILY levothyroxine 112 mcg PO QAM nortriptyline 10 mg PO BEDTIME HPI HPI Newprob-B/L knee pain/left knee worse-DOI 04/27/24: Details: 63-year-old female who presents to the office today for an evaluation of bilateral knee injury after a fall in the cafeteria at work, 04/27/24. She reports she had left humerus fracture and chronic left knee pain the same day and experienced right knee pain the following day. She currently states she has pain, swelling, bruising and discomfort in her bilateral knees that is worse on her right knee. Her pain is aggravated with movement, ambulation, stair use, getting up and kneeling down. She also reports she has locking and catching with twisting or pivoting motions. Her pain is alleviated with resting and elevation. She takes Celebrex for her pain. She also states she has left shoulder pain as well as discomfort in her bilateral hips. She is unable to sleep at night due to increased pain and numbness in her arm. She has been working on physical therapy for her shoulder with benefits. 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 Mother Breast cancer Hypothyroidism High cholesterol Diabetes mellitus HTN (hypertension) Daughter Ankylosing spondylitis Fibromyalgia Maternal Grandmother CVD (cardiovascular disease) Maternal Grandfather Lung cancer Paternal Grandfather Unknown family medical history Paternal Grandmother Unknown family medical history Maternal Aunt Melanoma Brother Melanoma Social History Housing: House Are you a primary day care supervisor to a significant other at home: No Do you presently have visiting nurse or other home services: No Alcohol intake: current Alcohol intake frequency: holidays/special occasions only Comment: counts correct Patient Tobacco Use Status: Former Tobacco user Years Smoked: quit 35 years ago e-Cigarette/Vaping Use: Never Used Second Hand Smoke Exposure: No service: No Current occupational status: employed Current occupation: [employer] [place] Current occupational exposures/hazards: No Sexual orientation: Straight/Heterosexual Gender identity: Female Cognitive needs: No Hearing needs: No Vision needs: No Review of Systems Const All systems reviewed & are unremarkable except as noted in HPI and below Physical Exam Vital Signs: BMI result Body Mass Index 24.9 Extrem Other: Left knee: Skin intact, no erythema or joint effusion. Tenderness along the medial and lateral joint line. Full ROM with crepitus. Negative Brent?s. No ligamentous laxity. NVI. Right knee: Skin intact, no erythema or joint effusion. Tenderness along the medial joint line. Full ROM with crepitus. Positive Brent?s. No ligamentous laxity. NVI. Assessment & Plan Assessment & Plan (1) Internal derangement of right knee: Code(s): M23.91 - Unspecified internal derangement of right knee Category: Medical Plan An MRI of the right knee has been ordered to further evaluate the integrity of meniscus. Once this is complete, I will reach out to her to determine the next step in her treatment. She will remain out of work till reevaluation. Orders: Orders XR knee LT 1V Today M25.562 - Pain in left knee MR knee RT wo con Today M17.11 - Unilateral primary osteoarthritis, right knee, M23.91 - Unspecified internal derangement of right knee XR knee RT 1V Today M25.561 - Pain in right knee Patient Instructions: Scribed for Adrianne Pang PA-C, by Luis F Addison medical billing associate, on 05/24/2024 at 1:30 PM EST.? I, Adrianne Pang PA-C, have personally reviewed and agree with the information entered by the scribe. Coding Level of Care Code Est Pt Level 3 (97788) Complex EM visit Add On G2211 Diagnoses Internal derangement of right knee M23.91
[2024-05-24 13:50] VITALS: BMI 24.9
== END 2024-05-24 14:27 | disposition home or self-care (01) ==
PROVIDERS: PCP Nurse Practitioner Family; Visit Provider Physician Assistant
DX: M23.91 Unspecified internal derangement of right knee (principal)
CPT/HCPCS: 99213

== ENCOUNTER → 2024-06-05 15:33 | Outpatient (BNV) | payer OTHER, SELFPAY | PROVIDERS: PCP Nurse Practitioner Family; Visit Provider Radiology Diagnostic Radiology | DX: M25.561 Pain in right knee (principal) | CPT/HCPCS: 73721 ==

== ENCOUNTER 2024-06-05 15:51 | Outpatient (REF) | payer OTHER, SELFPAY ==
--- NOTE | ~2024-06-05 | MR_ITS ---
EXAMINATION: MR KNEE WITHOUT CONTRAST, RIGHT CLINICAL INFORMATION: Bruising, swelling, and locking since April 27 fall. COMPARISON: None available. TECHNIQUE: MRI of the knee without contrast was performed using routine sequences on a high-field scanner. FINDINGS: BONE MARROW: -There is subchondral bone plate edema of the patellar apex extending into the lateral inferior facet as detailed below. -Otherwise, grossly no bone marrow edema, infiltrating abnormal bone marrow signal, or evidence of fracture. MENISCI: Medial Meniscus: -Intact without definite tear. Lateral Meniscus: -Oblique undersurface tearing in the junction of the anterior horn and body lateral meniscus, which also extends to the free margin (series 10, image 20). Tearing extends to the anterior horn and involves the anterior root entry zone. -No additional tear. LIGAMENTS: Cruciates: Intact and normal in signal. Medial Collateral Ligament: Intact and normal in signal. Lateral Collateral Complex: Intact and normal in signal. EXTENSOR MECHANISM: Intact and normal in signal. GASTROCNEMIUS TENDONS: Intact and normal in signal. ARTICULAR CARTILAGE/BONE: Patellofemoral Compartment: -There is subchondral bone plate edema involving the superior and mid patellar apex, and inferior lateral patellar facet with overlying full-thickness cartilage fissuring/loss, findings consistent with grade IV chondromalacia (series 8, images 9-13). Mild marginal spurring and lateral patellar tilt is present. Lateral Compartment: -Focus of near full-thickness cartilage fissuring consistent with grade II cartilage fissure involving the lateral tibial plateau (series 12, image 17). -Irregular thinning and eburnation of the weightbearing lateral femoral condylar cartilage without full-thickness defect. -Mild compartmental narrowing with prominent marginal osteophytic spurs. Nonweightbearing femoral cartilage intact. Medial Compartment: 1 -Mild superficial cartilage thinning and irregularity without full-thickness defect or subchondral bone plate edema. Small marginal osteophytes present. JOINT FLUID AND BURSAE: -Minimally increased joint fluid consistent with tiny effusion. -Prepatellar bursal edema and small volume fluid suggestive of prepatellar bursitis. -Remainder of the imaged soft tissues and muscles of the knee, including the popliteal fossa, appear normal. MR/MR knee RT wo con IMPRESSION: 1. No fracture or dislocation. 2. Oblique superior surface tear of the lateral meniscus at the junction of the body and anterior horn. There are extends into the anterior horn and anterior root entry zone. 3. Tricompartmental osteoarthrosis, moderate, most significant in the patellofemoral compartment as described where there is a grade IV chondromalacia patellar and subchondral bone plate edema. 4. Small amount of increased joint fluid. 5. Findings suggestive of prepatellar bursitis. Electronically signed by: Zana Oliveros MD 06/06/2024 02:15 PM [facility]
== END 2024-06-05 15:52 | disposition home or self-care (01) ==
LOC: HO.MRI 15:51
PROVIDERS: PCP Nurse Practitioner Family; Visit Provider Physician Assistant
DX: M17.11 Unilateral primary osteoarthritis, right knee (principal); M23.91 Unspecified internal derangement of right knee
CPT/HCPCS: 73721

== ENCOUNTER 2024-06-12 11:14 | Outpatient (AMB) | payer OTHER, SELFPAY ==
--- NOTE | 2024-06-12 11:42 | MHC.OFFVIS ---
Intake Visit Reasons: ov- right knee injection Allergies No Known Allergies Allergy (Mild, Verified 05/24/24 13:49) NKA HPI HPI ov- right knee injection : Details: 63-year-old female who returns to the office today for a follow-up of right knee pain s/p MRI . She continues to have pain in her right knee. She reports she has difficulty with daily activities such as walking, bending and kneeling. She had an incident where she got down on the floor, and due to the pain in the knee she was unable to get up . She also reports continued discomfort along the anterior aspect and posterior aspect of her left shoulder. She experiences limitations in her daily activities due to her pain and limited ROM. She has developed worsening pain in the right shoulder and elbow due to compensation. She continues to attend PT for the left shoulder. 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 Mother Breast cancer Hypothyroidism High cholesterol Diabetes mellitus HTN (hypertension) Daughter Ankylosing spondylitis Fibromyalgia Maternal Grandmother CVD (cardiovascular disease) Maternal Grandfather Lung cancer Paternal Grandfather Unknown family medical history Paternal Grandmother Unknown family medical history Maternal Aunt Melanoma Brother Melanoma Social History Housing: House Are you a primary lawn care technician to a significant other at home: No Do you presently have visiting nurse or other home services: No Alcohol intake: current Alcohol intake frequency: holidays/special occasions only Comment: counts correct Patient Tobacco Use Status: Former Tobacco user Years Smoked: quit 35 years ago e-Cigarette/Vaping Use: Never Used Second Hand Smoke Exposure: No service: No Current occupational status: employed Current [place]: [employer] [place] occupational exposures/hazards: No Sexual orientation: Straight/Heterosexual Gender identity: Female Cognitive needs: No Hearing needs: No Vision needs: No Review of Systems Const All systems reviewed & are unremarkable except as noted in HPI and below Physical Exam Const General: cooperative and no acute distress Orientation/consciousness: patient oriented x3 Resp Effort & Inspection: normal respiratory effort and able to speak in complete sentences Cardio Peripheral pulses: Peripheral pulses 2+ throughout Neuro General: patient oriented x3 Extrem Other: Right knee: Skin intact, no erythema or joint effusion. Lateral retropatellar tenderness present along with lateral joint line tenderness. Full ROM with crepitus. Positive Brent?s. No ligamentous laxity. NVI. Left shoulder: Normal to inspection. Tenderness over the bicipital groove and along the deltoid region of the shoulder. Forward flexion to 90, external rotation to 45, internal rotation to S1. Significant discomfort with RTC strength. Negative Yang and cross body abduction. NVI. ? Results Reviewed Results Reviewed: MR knee RT wo con IMPRESSION: 1. No fracture or dislocation. 2. Oblique superior surface tear of the lateral meniscus at the junction of the body and anterior horn. There are extends into the anterior horn and anterior root entry zone. 3. Tricompartmental osteoarthrosis, moderate, most significant in the patellofemoral compartment as described where there is a grade IV chondromalacia patellar and subchondral bone plate edema. 4. Small amount of increased joint fluid. 5. Findings suggestive of prepatellar bursitis Xrays were obtained in the office today and personally reviewed by me of the left shoulder show stable greater tuberosity fracture Assessment & Plan Assessment & Plan (1) Fracture of greater tuberosity of left humerus: Code(s): S42.252A - Displaced fracture of greater tuberosity of left humerus, initial encounter for closed fracture Category: Medical Qualifiers: Encounter type: initial encounter Fracture alignment: nondisplaced Fracture type: closed Qualified Code(s): S42.255A - Nondisplaced fracture of greater tuberosity of left humerus, initial encounter for closed fracture (2) Osteoarthritis of left knee: Code(s): M17.12 - Unilateral primary osteoarthritis, left knee Category: Medical (3) Tear of meniscus of left knee: Code(s): S83.207A - Unspecified tear of unspecified meniscus, current injury, left knee, initial encounter Category: Medical Plan We discussed options today, which include steroid injection. Given the amount of OA , I'd recommend an injection to help with her inflammation from her fall to see if this alleviates the flare. My opes are once the inflammatory symptoms are under control, her mechanical symptoms would improve. The patient did consent to move forward with the right knee injection, which was tolerated well. I recommended rest, ice, and elevation and OTC anti-inflammatories as needed for discomfort. If symptoms persist or worsens over the next 6-8 weeks, patient will contact the office, otherwise follow-up as needed. For her left shoulder, she will continue working with physical therapy for ROM and scapular stabilization. She will hold off on RTC strengthening for 6 weeks, at that point she will see me back with x-rays of her left shoulder. She will remain out of work untill her follow-up appointment. Orders: Orders XR shoulder LT min 2V Today M25.512 - Pain in left shoulder Patient Instructions: Scribed for Adrianne Pang PA-C, by Luis F Addison medical massage therapist, on 06/12/2024 at 11:15 AM EST.? I, Adrianne Pang PA-C, have personally reviewed and agree with the information entered by the scribe. Coding Level of Care Code Global (87794) Diagnoses Closed nondisplaced fracture of greater tuberosity of left humerus, initial encounter S42.255A Encounter type: initial encounter Fracture alignment: nondisplaced Fracture type: closed Osteoarthritis of left knee M17.12 Tear of meniscus of left knee S83.207A
== END 2024-06-12 13:17 | disposition home or self-care (01) ==
PROVIDERS: PCP Nurse Practitioner Family; Visit Provider Physician Assistant
DX: S42.255A Nondisplaced fracture of greater tuberosity of left humerus, initial encounter for closed fracture (principal); M17.12 Unilateral primary osteoarthritis, left knee; S83.281A Other tear of lateral meniscus, current injury, right knee, initial encounter
CPT/HCPCS: 99213

== ENCOUNTER 2024-06-12 11:14 | Outpatient (REF) | payer OTHER, SELFPAY ==
--- NOTE | ~2024-06-12 | XR_ITS ---
EXAMINATION: XR LEFT SHOULDER CLINICAL INFORMATION: Pain in left shoulder M25.512. COMPARISON: XR Left shoulder 05/01/2024 TECHNIQUE: Two views of the left shoulder. FINDINGS: No evidence for acute fracture or dislocation. No appreciable abnormal soft tissue calcifications. Narrowing of the left AC joint as noted previously. No new erosive process. Stable anatomic alignment at the shoulder joint since the previous evaluation. XR/XR shoulder LT min 2V IMPRESSION: No acute process. Degenerative changes. Electronically signed by: Davi Persaud MD 07/26/2024 12:44 PM CHATO BERKOWITZ
== END 2024-06-12 11:15 | disposition home or self-care (01) ==
LOC: HO.HOSX 11:14
PROVIDERS: PCP Nurse Practitioner Family; Visit Provider Physician Assistant
DX: M17.0 Bilateral primary osteoarthritis of knee (principal); S83.281A Other tear of lateral meniscus, current injury, right knee, initial encounter; M25.512 Pain in left shoulder; S42.252A Displaced fracture of greater tuberosity of left humerus, initial encounter for closed fracture
CPT/HCPCS: 20610; 73030; J1010; J2003

== ENCOUNTER → 2024-07-22 10:43 | Outpatient (BNVA) | payer OTHER, SELFPAY | PROVIDERS: PCP Nurse Practitioner Family ==

== ENCOUNTER 2024-07-24 12:53 | Outpatient (REF) | payer OTHER, SELFPAY ==
--- OUTSIDE RECORDS SUMMARY | 2024-07-25 13:49 | XMS_ITS ---
Author Organization [facility] Address [address] [place] [address] Care Team Providers Care Electrical Intern Name Role Phone JOCE RUTH Primary Care Provider David Cool [phone] REASON FOR VISIT dysphgia PROBLEMS Problem Type ICD Code Onset Dates Problem Status W/U Status Risk SNOMED Code Notes Problem Dysphagia, oropharyngeal phase (R13.12) Active confirmed Oropharyngeal dysphagia (04176387) Problem Chronic gastritis (K29.50) Active confirmed Chronic gastritis (9469593) Encounters Encounter Location Date Provider Diagnosis [facility] [place] Out[place] [address] [place] [id number] 04/21/2024 David Mcdowell Dysphagia, orophar yngeal phase R13.12 ; Hiatal hernia K44.9 and Chronic gastritis K29.50 ASSESSMENTS Encounter Date Diagnosis Assessment Notes Treatment Notes Treatment Clinical Notes 04/21/2024 Dysphagia, oropharyngeal phase (ICD-10 - R13.12) 04/21/2024 Hiatal hernia (ICD-1 0 - K44.9) 04/21/2024 Chronic gastritis (ICD-10 - K29.50) PLAN OF TREATMENT Next Appt Details Provider Name:David Mcdowell , 09/13/2024 01:00:00 PM, [address], [address], [place], [address],
--- OUTSIDE RECORDS SUMMARY | 2024-07-25 13:49 | XMS_ITS | Patient Health Record ---
Author Organization [facility] Address [address] [place] [address] Care Team Providers Care Tire Room Supervisor Name Role Phone JOCE RUTH Primary Care Provider David Cool Unavailable [phone] ALLERGIES Allergen (clinical drug ingredient) Drug/Non Drug Allergy documented on EMR Reaction Allergy Type Onset Date Status Codeine Phosphate Unknown Drug Allergy Active RESULTS Component Value Reference Range Notes Pathology Reviewed date:04/27/2024 06:59:01 PM Interpretation: Performing Lab:[facility], [address] [place] [phone] Notes/Report: REASON FOR REFERRAL No Information MEDICATIONS Medication SIG (Take, Route, Frequency, Duration) Notes Start Date End Date Status MiraLax Active Benefiber Active Hyoscyamine Sulfate ER 0.375 MG 1/2 to 1 tablet Orally Q 10-12 hours abdominal cramps and discomfort for 90 days Active Xanax 0.5mg BID PRN Active Synthroid Active Hyoscyamine Sulfate 0.125 MG 1-2 Orally Q 4-6 hours prn abdominal pain/discomfort/bloati ng for 30 days 08/02/2020 Not-Taking Ibuprofen PRN Active Atorvastatin Calcium Active Nortriptyline HCl 10 MG Orally Active Omeprazole 20 MG 1 Orally Once a day every morning for 30 day(s) 04/21/2024 Active Escitalopram Oxalate Active Levothyroxine Sodium Active IMMUNIZATIONS Vaccine Route Administration Date Status Comme nts Influenza Unknown 04/10/2020 Administered Influenza Unknown 07/14/2022 Refused SOCIAL HISTORY Sex Assigned At : Social History Observation Description Sex Assigned At Unknown PROBLEMS Problem Type ICD Code Onset Dates Problem Status W/U Status Risk SNOMED Code Notes Problem Irritable bowel syndrome (K58.9) Active confirmed Irritable b owel syndrome (80065230) Problem Constipation (K59.00) Active confirmed Constipation (84586589) Problem Diverticulosis of large intestine without perforation or abscess without bleeding (K57.30) Active confirmed Diverticul ar disease of colon (989818797) Problem Dysphagia, oropharyngeal phase (R13.12) Active confirmed Oropharyngeal dysphagia (12285919) Problem Dysphagia (R13.10) Active confirmed Dys phagia (22036542) Problem Screen for colon cancer (Z12.11) Active confirmed 815382610 Problem Abdominal pain, RLQ (R10.31) Active confirmed Right lower quadrant pain (241789151) Problem Chronic gastritis (K29.50) Active confirmed Chronic gastritis (8627600) VITAL SIGNS Blood pressure diastolic 00 mm Hg 04/12/2024 Height 62 in 04/12/2024 Blood pressure systolic 00 mm Hg 04/12/2024 Weight 147 lbs 04/12/2024 BMI 26.88 kg/m2 04/12/2024 Encounters Encounter Location Date Provider Diagnosis [facility] [place] [place] Outpatient [address] [place] [id number] 04/21/2024 David Mcdowell Dysphagia, oropharyngeal phase R13.12 ; Hiatal hernia K44.9 and Chronic gastritis K29.50 [facility] [address] [place] [phone] 04/12/2024 David Mcdowell Dysphagia R13.10 and Irritable bowel syndrome K58.9 [facility] [address] [place] [phone] 04/05/2024 David Mcdowell [facility] [address] [place] [phone] 04/19/2024 David Mcdowell [facility] [address] [place] [phone] 04/21/2024 David Mcdowell [facility] [address] [place] [phone] 04/27/2024 David Mcdowell ASSESSMENTS Encounter Date Diagnosis Assessment Notes Treatment Notes Treatment Clinical Notes 04/21/2024 Dysphagia, oropharyngeal phase (ICD-10 - R13.12) 04/21/2024 Hiatal hernia (ICD-10 - K44.9) 04/12/2024 Irritable bowel syndrome (ICD-10 - K58.9) Use daily Benefiber and Miralax for the constipation Use the Hyoscyamine once or twice a day for the IBS 04/12/2024 Dysphagia (ICD-10 - R13.10) This may be an esophageal motiliity problem related to an autoimmune condition like Sjogren's or Scleroderma(you can ask Dr. Marie) 04/21/2024 Chronic gastritis (ICD-10 - K29.50) PLAN OF TREATMENT Pending Test Test Name Order Date CHEM 7 PROFILE 01/06/2012 LIVER PROFILE 01/06/2012 AMYLASE 01/06/2012 CBC with MANUAL DIFFERENTIAL 01/06/2012 SED RATE (ESR) 01/06/2012 CLOSTRIDIUM DIFF TOXIN A&B (C DIFF) 12/26 STOOL WBC 01/06/2012 CELIAC PANEL #10 01/06/2012 CELIAC PANEL #10 03/31/2012 ENDOMYSIAL IGA 01/06/2012 ENDOMYSIAL IGA 03/31/2012 TRANSGLUTAMINASE AB IGA 03/31/2012 TRANSGLUTAMINASE AB IGA 01/06/2012 TRANSGLUTAMINASE AB IGG 01/06/2012 TRANSGLUTAMINASE AB IGG 03/31/2012 OVA & PARASITES (O&P) 01/06/2012 ROUTINE CULTURE 01/06/2012 Future Test Test Name Order Date COLONOSCOPY 03/31/2012 COLONOSCOPY 07/14/2022 UPPER GI ENDOSCOPY BALLOOON DILATION OF ESOPH 04/12/2024 Next Appt Details Provider Name:David Adrian Jeremias , 09/13/2024 01:00:00 PM, [address], [address], [place], [address], Insurance Providers Payer Name Payer Address Payer Phone Subscriber Number Group Number Insured Name Patient Relationship to Insured Coverage Start Date Coverage End Date [employer] [address] [address] [place] [address] [id number] CAYDEN NUNEZ Self - patient is the insured MEDICAL (GENERAL) HISTORY Medical History History ICD Code Colonoscopy 08-01-2003 with the finding of proctitis Denies [place],DM,CVA,renal disease,asthma Spontaneous pneumothorax Hypothyroidism Negative screening colonoscopy in 2--no polyps, no proctitis Diverticulitis in approx 201 5--describes a CT scan and outpatient antibiotics IBS with constipation Hyperlipidemia Anxiety Ovarian cysts COVID 05/2022 Screening colonoscopy in Aug was negative other than a hyperplastic polyp [address] Marie at [facility] from Rheumatology for workup of possible autoimmune disease including either Sjogren's disease or Lupus Surgical History Surgery Date(Month/Year) Partial hysterectomy 2007 Cholecystectomy Right elbow ulnar nerve decompression 20 24 10/31/2023
--- OUTSIDE RECORDS SUMMARY | 2024-07-25 13:49 | XMS_ITS ---
Author Organization [facility] Address [address] [place] [address] Care Team Providers Care Trade Mark Examiner Name Role Phone JOCE RUTH Primary Care Provider David Cool [phone] REASON FOR VISIT Omeprazole 20mg Rx MEDICATIONS Medication SIG (Take, Route, Fr equency, Duration) Notes Start Date End Date Status Omeprazole 20 MG 1 Orally Once a day every morning for 30 day(s) 04/21/2024 Active Encounters Encounter Location Date Provider Diagnosis [facility] [address] [place] [address] 04/21/2024 David Mcdowell PLAN OF TREATMENT Medication Medication Name Sig Start Date Stop Date Notes Omeprazole 20 MG 1 Orally Once a day every morning for 30 day(s) 04/21/2024 Next Appt Details Provider Name:David Mcdowell , 09/13/2024 01:00:00 PM, [address] [place] [address], [address], [place], [address],
--- OUTSIDE RECORDS SUMMARY | 2024-07-25 13:49 | XMS_ITS ---
Author Organization [facility] Address [address] [place] [address] Care Team Providers Care Acid Tank Liner Name Role Phone JOCE RUTH Primary Care Provider David Cool [phone] Encounters Encounter Location Date Provider Diagnosis [facility] [address] [place] [address] 04/27/2024 David Mcdowell PLAN OF TREATMENT Next Appt Details Provider Name:David Mcdowell , 09/13/2024 01:00:00 PM, [address], [address], [place], [phone],
== END 2024-07-24 12:54 | disposition home or self-care (01) ==
LOC: HO.HOSX 12:53
PROVIDERS: Visit Provider Physician Assistant
DX: Z13.89 Encounter for screening for other disorder (principal)

== ENCOUNTER 2024-08-02 07:23 | Outpatient (REF) | payer OTHER, SELFPAY ==
--- NOTE | ~2024-08-02 | XR_ITS ---
EXAMINATION: XR SHOULDER, LEFT CLINICAL INFORMATION: M25.512 - Pain in left shoulder COMPARISON: 06/12/2024. TECHNIQUE: Two views of the left shoulder. FINDINGS: No fracture, dislocation, or suspicious bone lesion. Normal alignment. Normal glenohumeral joint. Mild spurring of the AC joint, predominantly superior surface. Neutral lateral acromion without spurring. No loss of subacromial space. Remainder of the bony and soft tissue structures appear normal. XR/XR shoulder LT min 2V IMPRESSION: Mild AC joint arthritis. Otherwise normal exam. Electronically signed by: Zana Oliveros MD 08/02/2024 12:20 PM [facility]
== END 2024-08-02 07:24 | disposition home or self-care (01) ==
LOC: HO.HOSX 07:23
PROVIDERS: Visit Provider Physician Assistant
DX: M25.512 Pain in left shoulder (principal); M17.12 Unilateral primary osteoarthritis, left knee; S42.252A Displaced fracture of greater tuberosity of left humerus, initial encounter for closed fracture; S46.012A Strain of muscle(s) and tendon(s) of the rotator cuff of left shoulder, initial encounter; S83.206A Unspecified tear of unspecified meniscus, current injury, right knee, initial encounter; S80.02XA Contusion of left knee, initial encounter; X58.XXXA Exposure to other specified factors, initial encounter; Y93.9 Activity, unspecified; Y92.9 Unspecified place or not applicable; Y99.9 Unspecified external cause status
CPT/HCPCS: 73030; 99212

== ENCOUNTER 2024-08-02 11:02 | Outpatient (AMB) | payer OTHER, SELFPAY ==
--- NOTE | 2024-08-02 11:16 | MHC.OFFVIS ---
Intake Visit Reasons: ov- WC LT humerus fx, DOI 04/27/24 Intake Note: Mackenzie is a 63 year old left hand dominant female who presents today for a follow up of left humerus fracture, DOI 04/27/24. X-rays updated. Patient reports she is still having pain in her fracture area and she feels its her whole arm. She mentions that she has been doing her PT and she notices some relief. Patient informed me that her pain also moves down to her elbow and she feels a pulling sensation when she is reaching out to open a door. Allergies No Known Allergies Allergy (Mild, Verified 08/02/24 11:20) NKA HPI HPI ov- WC LT humerus fx, DOI 04/27/24: Details: 63 yo female returns to the office today fu left shoulder greater tuberosity fx 04/27/24. She continues to work with PT to improve her strength and ROM. She c/p weakness in the left upper extremity, pain along the scapula and discomfort in the elbow and forearm due to over compensation. She has difficulty gripping and grasping objects due to the discomfort. She is also experiencing pain in the right forearm from over compensation; of note, she is s/p Right Cubital Tunnel Release and anterior ulnar nerve transposition 11/01/[address] Eller. She was doing well post op, until this fall. Her right knee has shown little relief with the injection. She continues to have pain and stiffness with daily activity. She is also experiencing left knee pain since the time of the fall that is worsening as she attempts to increase her activity. She states the left knee feels weak and unstable at times. She has a difficult time finding a comfortable position with sitting and sleeping on her back. 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 Mother Breast cancer Hypothyroidism High cholesterol Diabetes mellitus HTN (hypertension) Daughter Ankylosing spondylitis Fibromyalgia Maternal Grandmother CVD (cardiovascular disease) Maternal Grandfather Lung cancer Paternal Grandfather Unknown family medical history Paternal Grandmother Unknown family medical history Maternal Aunt Melanoma Brother Melanoma Social History Housing: House Are you a primary complex care nurse to a significant other at home: No Do you presently have visiting nurse or other home services: No Alcohol intake: current Alcohol intake frequency: holidays/special occasions only Comment: counts correct Patient Tobacco Use Status: Former Tobacco user Years Smoked: quit 35 years ago e-Cigarette/Vaping Use: Never Used Second Hand Smoke Exposure: No service: No Current occupational status: employed 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 [place] Current occupational exposures/hazards: No Sexual orientation: Straight/Heterosexual Gender identity: Female Cognitive needs: No Hearing needs: No Vision needs: No Review of Systems Const All systems reviewed & are unremarkable except as noted in HPI and below Physical Exam Const General: cooperative and no acute distress Orientation/consciousness: patient oriented x3 Resp Effort & Inspection: normal respiratory effort and able to speak in complete sentences Cardio Peripheral pulses: Peripheral pulses 2+ throughout Neuro General: patient oriented x3 Extrem Other: Right knee: Skin intact, no erythema or joint effusion. Lateral retropatellar tenderness present along with lateral joint line tenderness. Full ROM with crepitus. Positive Brent?s. No ligamentous laxity. NVI. Left knee : Skin intact, no erythema or joint effusion. She has medial and lateral joint tenderness and pain with palpation over the patella. Full ROm . NVI. Left shoulder: Normal to inspection. Tenderness over the bicipital groove and along the deltoid region of the shoulder. Forward flexion to 90, external rotation to 45, internal rotation to S1. Significant discomfort with RTC strength. Negative Yang and cross body abduction. NVI. ? Results Reviewed Results Reviewed: Xrays were obtained in the office today and personally reviewed by me of the left shoulder show stable greater tuberosity fracture Assessment & Plan Assessment & Plan (1) Injury of left rotator cuff: Code(s): S46.002A - Unspecified injury of muscle(s) and tendon(s) of the rotator cuff of left shoulder, initial encounter Category: Medical Qualifiers: Encounter type: initial encounter Qualified Code(s): S46.002A - Unspecified injury of muscle(s) and tendon(s) of the rotator cuff of left shoulder, initial encounter (2) Fracture of greater tuberosity of left humerus: Code(s): S42.252A - Displaced fracture of greater tuberosity of left humerus, initial encounter for closed fracture Category: Medical Qualifiers: Encounter type: initial encounter Fracture type: closed Fracture alignment: nondisplaced Qualified Code(s): S42.255A - Nondisplaced fracture of greater tuberosity of left humerus, initial encounter for closed fracture (3) Complex tear of meniscus of right knee as current injury: Code(s): S83.203A - Other tear of unspecified meniscus, current injury, right knee, initial encounter Category: Medical (4) Osteoarthritis of right knee: Code(s): M17.11 - Unilateral primary osteoarthritis, right knee Category: Medical (5) Contusion of left knee: Code(s): S80.02XA - Contusion of left knee, initial encounter Category: Medical Plan She will continue PT for the left shoulder to work on ROM and strength. If she continues with limitations in strength or movement in certain positions, I would encourage her meet with Dr Bey to discuss further treatment options given the findings on her MRI. An MRI of the left knee has been ordered to further assess her weakness and pain with weight bearing activity. She will begin PT bilat knee to help build up some strength and gait training. She will Continue with the celebrex 200mg bid . 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 She will remain out of work until she sees me back in 6-8 weeks, sooner if needed Orders: Orders XR shoulder LT min 2V Today M25.512 - Pain in left shoulder MR knee LT wo con Today M17.12 - Unilateral primary osteoarthritis, left knee Coding Level of Care Code Est Pt Level 3 (86761) Complex EM visit Add On G2211 Diagnoses Injury of left rotator cuff, initial encounter S46.002A Encounter type: initial encounter Closed nondisplaced fracture of greater tuberosity of left humerus, initial encounter S42.255A Encounter type: initial encounter Fracture type: closed Fracture alignment: nondisplaced Complex tear of meniscus of right knee as current injury S83.203A Osteoarthritis of right knee M17.11 Contusion of left knee S80.02XA
== END 2024-08-02 12:04 | disposition home or self-care (01) ==
PROVIDERS: PCP Nurse Practitioner Family; Visit Provider Physician Assistant
DX: S46.002A Unspecified injury of muscle(s) and tendon(s) of the rotator cuff of left shoulder, initial encounter (principal); S42.255A Nondisplaced fracture of greater tuberosity of left humerus, initial encounter for closed fracture; S83.203A Other tear of unspecified meniscus, current injury, right knee, initial encounter; M17.11 Unilateral primary osteoarthritis, right knee; S80.02XA Contusion of left knee, initial encounter
CPT/HCPCS: 99213; G2211

== ENCOUNTER → 2024-08-02 11:10 | Outpatient (BNV) | payer OTHER, SELFPAY | PROVIDERS: Visit Provider Radiology Diagnostic Radiology | DX: M17.12 Unilateral primary osteoarthritis, left knee (principal); S83.282A Other tear of lateral meniscus, current injury, left knee, initial encounter; M25.462 Effusion, left knee; M71.22 Synovial cyst of popliteal space [Baker], left knee | CPT/HCPCS: 73030; 73721 ==

== ENCOUNTER 2024-09-25 09:58 | Outpatient (RCR) | payer OTHER, SELFPAY | END 2024-10-13 11:13 | disposition home or self-care (01) | LOC: HO.PT 09:58 | PROVIDERS: PCP Nurse Practitioner Family; Visit Provider Physician Assistant | DX: S42.252D Displaced fracture of greater tuberosity of left humerus, subsequent encounter for fracture with routine healing (principal) | CPT/HCPCS: 97110; 97112; 97140; 97161; 97535 ==

== ENCOUNTER 2024-09-26 14:18 | Outpatient (AMB) | payer OTHER, SELFPAY ==
[2024-09-26 14:19] VITALS: BP 120/80; PULSE 83; O2SAT 96; BMI 26.3
--- NOTE | 2024-09-26 14:19 | A.OFFPC_ITS ---
Vital Signs 09/26/24 14:19 Height 5 ft 4 in Weight 153 lb BMI 26.3 BP 120/80 Blood Pressure Location Rt brachial Position Sitting Pulse 83 Pulse Source Pulse Oximeter Pulse Oximetry (%) 96 Oxygen Delivery Method Room Air Intake Visit Reasons: PE Award Clerk Required: No Accompanied by: Self / Same As Patient Allergies No Known Allergies Allergy (Mild, Verified 09/26/24 15:51) NKA Medication List - Last Reconciled 09/26/24 by LJ Lott- acyclovir 800 mg PO TID alprazolam 1 mg PO TID PRN atorvastatin 20 mg PO DAILY 90 days celecoxib (Celebrex) 200 mg PO BID 30 days escitalopram oxalate 20 mg PO DAILY gabapentin 100 mg PO TID 7 days hydroxychloroquine 200 mg PO DAILY levothyroxine 112 mcg PO QAM lidocaine 5% 1 patch topical DAILY nortriptyline 10 mg PO BEDTIME Tobacco use date assessed: 09/26/24 Fall risk assessment: 1 Fall in past year Last assessed Fall Risk: 09/26/24 Dental Screening Dental Screen Date: 09/26/24 Did you have a dental visit in the last 12 months?: Yes Did you have a dental problem in the last 6 months where you did not have access to dental care?: No Was dental information given to patient?: Patient has dentist HPI PE HPI Details History of Present Illness The patient is a 64-year-old female presenting for a physical examination. Unfortunately, pt was involved in a work-related injury. She reports an incident of slipping and falling on April 27, which has led to physical limitations and increased emotional distress. The fall resulted in reduced range of motion in her left upper extremity and both knees. In addition to her acute issues, the patient has a chronic medical history including ulcerative colitis and irritable bowel syndrome, both managed with her nutrition instructor. She also suffers from rheumatological disorders, with joint pains that are occasionally present, and has an established history of migraines. Her emotional well-being is affected by increased depression post- injury, although she denies suicidal or homicidal thoughts. She is diligent about her health maintenance and has current colon screening, with plans to schedule a mammogram herself. She has not reported any additional acute symptoms such as fever, chills, urinary issues, chest pain, or respiratory distress. Health Maintenance - Mammogram screening recommended; patie nt to schedule. - Colonoscopy screening is current and m anaged by GI specialist. - Consideration for mental health suppor t due to increased depression. Social History - Employed; incident related to workmen' s compensation. Review of Systems - Psychological: Reports increased depre ssion; Denies suicidal or homicidal ideation. - Gastrointestinal: Reports intermittent diarrhea due to IBS; Denies other GI symptoms. - Renal/Urinary: Denies urinary issues. - Respiratory: Denies chest pain or shor tness of breath. denies any fevers or chills Physical Exam General: Cooperative, healthy appearing, comfortable, no acute distress and well developed Orientation: Patient oriented x3 Limitations: Limited range of motion to her left upper extremity and bilateral knees Head: Normal to inspection Ears: Hearing grossly normal bilaterally Nose: Normal external nose present Face and sinus: Normal facial exam Eyes: Appearance normal, both eyes and all related structures Neck: Normal visual inspection and Yes full ROM Respiratory: Normal respiratory effort and able to speak in complete sentences. Clear to auscultation bilaterally Cardiovascular: Regular rate and rhythm. Normal S1 and S2 GI: Normal to inspection. Soft to palpation and nontender Skin: No rashes or lesions noted Neuro: Patient oriented x3 Extremities: Limited range of motion to her left upper extremity and bilateral knees due to pain Results Plan The plan includes initiating physical therapy to address musculoskeletal limitations due to her recent slip and fall. Continual monitoring and treatment for ulcerative colitis and IBS will continue with her nutrition instructor. Her rheumatological conditions will be followed by her field artillery targeting technician. Addressing her increased depression is also a priority, through potential mental health support. The patient is to schedule her mammogram, while her colonoscopy is current. Discussion Notes We reviewed the management plan for her work-related injury, highlighting the importance of starting physical therapy to restore joint function in the affected extremities. I emphasized the continuity of care for her gastrointestinal conditions under her nutrition instructor. We also discussed the psychological impact of her increased depression, with suggestions for mental health support as needed. Health maintenance was reviewed, including her commitment to staying current with recommended screenings. She is aware of when to follow up and the importance of notifying us of any concerning symptoms. I will see her for a WC related visit in the very near future Patient Instructions - Begin physical therapy as scheduled. - Continue with gastroenterology and rhe umatology follow-ups. - Schedule a mammogram. - Monitor mental health; seek support if depression worsens. - Stay aware of any new symptoms and rep ort them promptly. 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 Mother Breast cancer Hypothyroidism High cholesterol Diabetes mellitus HTN (hypertension) Daughter Ankylosing spondylitis Fibromyalgia Maternal Grandmother CVD (cardiovascular disease) Maternal Grandfather Lung cancer Paternal Grandfather Unknown family medical history Paternal Grandmother Unknown family medical history Maternal Aunt Melanoma Brother Melanoma Social History Housing: House Are you a primary vocational childcare teacher to a significant other at home: No Do you presently have visiting nurse or other home services: No Alcohol intake: current Alcohol intake frequency: holidays/special occasions only Comment: counts correct Patient Tobacco Use Status: Former Tobacco user Years Smoked: quit 35 years ago e-Cigarette/Vaping Use: Never Used Second Hand Smoke Exposure: No service: No Current occupational status: employed Current occupation: [employer] [place] Current occupational exposures/hazards: No Sexual orientation: Straight/Heterosexual Gender identity: Female Cognitive needs: No Hearing needs: No Vision needs: No Questionnaire PHQ-9 Over the last 2 weeks, how often have you been bothered by any of the following problems? 39230 - PHQ-9 Billing: Patient declined-do not bill Source: Developed by Drs. David Eldridge, Lindy Blunt, Efra Villalba and colleagues, with an educational pat from [employer]. Thrive Questionnaire Date Thrive assessed: 09/26/24 I am a: Patient What is your living situation today?: I have a steady place to live Within the past 12 months, did the food you bought not last and you didn't have the money to get more?: Never true Within the past 12 months, did you worry whether your food would run out before you got money to buy more?: Never true Do you have trouble paying for medicines?: No Do you have trouble getting transportation to medical appointments?: No Do you have trouble paying your heating and electricity bill?: No Do you have trouble taking care of your child, family member or friend?: No Do you have trouble with day-to-day activities such as bathing, preparing meals, shopping, managing finances, etc.?: I choose not to answer this question Are you currently unemployed and looking for a job?: No Are you interested in more education?: No THRIVE Score: 0 AUDIT C Alcohol Use Questionnaire (AUDIT-C) 1. How often do you have a drink containing alcohol?: Monthly or less 2. How many drinks containing alcohol do you have on a typical day when you are drinking?: 1 or 2 3. How often do you have six or more drinks on one occasion?: Never Total Score: 1 Score Reviewed/Action Taken: Yes ELROY-7 AMB Questionnaire ELROY-7 Date ELROY - 7 assessed: 09/26/24 Feeling nervous, anxious, or on edge: 3 = Nearly every day Not being able to stop or control worryin = Nearly every day Worrying too much about different things: 3 = Nearly every day Trouble relaxin = Nearly every day Being so restless that it is hard to sit still: 1 = Several days Becoming easily annoyed or irritable: 3 = Nearly every day Feeling afraid as if something awful might happen: 0 = Not at all Total ELROY-7 score (0-4 normal; 5-9 mild; 10-14 moderate; 15-21 severe): 16 Source: Developed by Drs. David Eldridge, Lindy Blunt, Efra Villalba and colleagues, with an educational pat from [employer]. ELROY-7 Assessment Billing ELROY-7 Assessment Tool: ELROY-7 Assessment 70256 (denies any si or hi, most current distress is situational) Physical exam (Primary Care) Vital Signs: Last Vital Signs Pulse 83 09/26/24 14:19 BP 120/80 09/26/24 14:19 Pulse Ox 96 09/26/24 14:19 Oxygen Delivery Method Room Air 09/26/24 14:19 BMI result Body Mass Index 26.3 Tobacco/Smoking Status: Tobacco use Status Tobacco use date assessed 09/26/24 09/26/24 14:21 Patient Tobacco Use Status Former Tobacco user 09/26/24 14:21 e-Cigarette/Vaping Use Never Used 09/26/24 14:21 Thrive Assessment: Date of Thrive Assessment Date Thrive assessed 09/26/24 09/26/24 14:21 Coding Level of Care Code Est Pt Prev Care 40-64y(13739) Diagnoses Encounter for routine adult physical exam with abnormal findings Z. Vitamin D deficiency E55.9 Additional Codes ELROY-7 Assessment Billing - ELROY-7 Assessment Tool: ELROY-7 Assessment 42968 ([id number]) Assessment & Plan Assessment & Plan (1) Encounter for routine adult physical exam with abnormal findings: Code(s): Z. - Encounter for general adult medical examination with abnormal findings Category: Medical (2) Vitamin D deficiency: Code(s): E55.9 - Vitamin D deficiency, unspecified Category: Medical Plan . Orders: Orders Complete Blood Count Auto Diff Today Z00. - Encounter for general adult medical examination with abnormal findings Lipid Panel Today Z00. - Encounter for general adult medical examination with abnormal findings Vitamin D 25-OH Total Today E55.9 - Vitamin D deficiency, unspecified Comprehensive [place]. Panel Fast Today Z00. - Encounter for general adult medical examination with abnormal findings TSH reflex Free T4 Today Z00. - Encounter for general adult medical examination with abnormal findings UA CC w/rflx Micro + Cult Today Z00.01 - Encounter for general adult medical examination with abnormal findings MM screening mammo BI Today Z12.31 - Encounter for screening mammogram for malignant neoplasm of breast
--- OUTSIDE RECORDS SUMMARY | 2024-09-26 17:06 | XMS_ITS ---
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 Name Role Phone JOCE RUTH Primary Care Provider David Cool [phone] REASON FOR VISIT Omeprazole 20mg Rx Medications Medication SIG (Take, Route, Fr equency, Duration) Notes Start Date End Date Status Omeprazole 20 MG 1 Orally Once a day every morning for 30 day(s) 04/21/2024 Active Encounters Encounter Location Date Provider Diagnosis [facility] [address] [place] [id number] 04/21/2024 David Mcdowell Plan Of Treatment Medication Medication Name Sig Start Date Stop Date Notes Omeprazole 20 MG 1 Orally Once a day every morning for 30 day(s) 04/21/2024 Progress Notes * EMIRGABRIELE BOJORQUEZHLEEN FDOB:[birth year] (63 yo F)Acc No.[id number]:04/21/2024 Patient:?CAYDEN NUNEZ :1960???Age:63 Y???Sex:Female Address:[place] [address] * Refills? Start Omeprazole Capsule Delayed Release, 20 MG, Orally, 30, 1, Once a day every morning, 30 day(s), Refills=6 * true * Date:? Generated for Lisa elias/Timmy/eTransmitting on:?09/26/2024 05:06 PM EDT
--- OUTSIDE RECORDS SUMMARY | 2024-09-26 17:06 | XMS_ITS | Patient Health Record ---
Author Organization [facility] Address [address] [place] [address] Care Team Providers Care Performance Tester Name Role Phone JOCE DENNY Primary Care Provider David Cool [phone] Allergies Allergen (clinical drug ingredient) Drug/Non Drug Allergy documented on EMR Reaction Allergy Type Onset Date Status Codeine Phosphate Unknown Drug Allergy Active Results Component Value Reference Range Notes Pathology Reviewed date:04/27/2024 06:59:01 PM Interpretation: Performing Lab:[facility], [address] [place] [id number] Notes/Report: Name: Haydee Christianson Age/Sex: 63/F : 1960 Unit#: [id number] Attend Dr: David Mcdowell MD Re04/21/24 Status : [facility] Location: [facility] Disch: SPEC : [id number] RECD : 04/21/24 STATUS: NATHAN UREÑA NUM: [id number] SERENA: 04/21/24 [facility] DR: David Mcdowell MD ENTERED: 04/21/24 07 SP TYPE: Surgical OTHR DR: Joce Denny [facility] ORDERED: HE Stain/6, Gross Micro L4/2, IHC, H. pylori Diagnosis A. Stomach, antrum, biopsy: Antral-type mucosa within normal limits; no Helicobacter organisms seen. B. Esophagus, 20-25 cm, biopsy: Squamous epithelium within normal limits; no inflammation seen; n egative for eosinophilic esophagitis. Clinical History Pre-Op Dx: Dysphagia, unspecified Post-Op Dx: Gastritis Microscopic Description A, B. Microscopic se ctions examined. No Helicobacter organisms are seen, supported by H. pylori immunostain (A). Material Received A. Gastric antrum B. Esophagus 20-25 cm, r/o EOE Gross Description Received in two parts. Part A: Received in formalin labeled ?gastric antrum? are 3 pickering-pink irregular and rectangular tissue f ragments ranging from 0.25-0.45 cm, submitted in toto in a cassette labeled A. Part B: Received in formalin labeled ?esophagus 20-25 cm, rule out EOE? are 3 hess-pickering and pickering-pink irregular a nd rectangular tissue fragments ranging 0.25-0.45 cm, submitted in toto in a cassette labeled B. CEDS Special studies orde red and performed: Immunostain for H. pylori on A Copies To: Joce Denny [facility], [address] [address] CONTINUED ON NEXT PAGE Name: Haydee Christianson Age/Sex: 63/F : 1960 Unit#: [id number] Attend Dr: David Mcdowell MD Re04/21/24 Status : [facility] [place] Disch: SPEC : [id number] RECD : 04/21/24 STATUS: SHARYNAurelia YUSUFJaneth NUM: [id number] SERENA: 04/21/24 [facility] DR: David Mcdowell MD ENTERED: 04/21/24 SP TYPE: Surgical OTHR DR: Joce Denny [facility]- ORDERED: HE Stain/6, Gross Micro L4/2, IHC, H. pylori Copies To: (Continued) David Mcdowell MD [facility] [address] [place], [place] [id number] Signed (si gnature on file) Davi Moreno MD 04/25/24 1640 END OF REPORT Reason For Referral No Information Medications Medication SIG (Take, Route, Frequency, Duration) Notes Start Date End Date Status Nortriptyline HCl 10 MG Orally Active Escitalopram Oxalate Active Ibuprofen PRN Active Hyoscyamine Sulfate ER 0.375 MG 1/2 to 1 tablet Orally Q 10-12 hours abdominal cramps and discomfort for 90 days Active Gabapentin 100 MG 1 capsule at bedtime Orally Once a day Active Omeprazole 20 MG 1 Orally Once a day every morning for 30 day(s) 04/21/2024 Active Benefiber Active Hyoscyamine Sulfate 0.125 MG 1-2 Orally Q 4-6 hours prn abdominal pain/discomfort/bloati ng for 30 days 08/02/2020 Not-Taking MiraLax Active Synthroid Active Xanax 0.5mg BID PRN Active Atorvastatin Calcium Active Levothyroxine Sodium Active Immunizations Vaccine Route Administration Date Status Comme nts Influenza Unknown 04/10/2020 Administered Influenza Unknown 07/14/2022 Refused Influenza Unknown 09/13/2024 Refused Problems Problem Type SNOMED Code ICD Code Onset Dates Problem Status W/U Status Risk Notes Problem Irritable bowel syndrome (62487034) Irritable bowel syndrome (K58.9) Active confirmed Problem Constipation (85142230) Constipation (K59.00) Active confirmed Problem Diverticular disease of colon (283336319) Diverticulosis of large intestine without perforation or abscess without bleeding (K57.30) Active confirmed Problem Oropharyngeal dysphagia (52899580) Dysphagia, oropharyngeal phase (R13.12) Active confirmed Problem Dysphagia (29816890) Dysphagia (R13.10) Active confirmed Problem 256914917 Screen for colon cancer (Z12.11) Active confirmed Problem Right lower quadrant pain (331350386) Abdominal pain, RLQ (R10.31) Active confirmed Problem Chronic gastritis (4854028) Chronic gastritis (K29.50) Active confirmed Vital Signs Temperature 97.3 degrees Fahrenheit 09/13/2024 Blood pressure diastolic 01 mm Hg 09/13/2024 Height 62 in 09/13/2024 Blood pressure systolic 001 mm Hg 09/13/2024 Weight 145 lbs 09/13/2024 BMI 26.52 kg/m2 09/13/2024 Encounters Encounter Location Date Provider Diagnosis [facility] [address] [place] [id number] 04/21/2024 David Mcdowell Dysphagia, oropharyngeal phase R13.12 ; Hiatal hernia K44.9 and Chronic gastritis K29.50 [facility] [address] [place] [phone] 04/12/2024 David Mcdowell Dysphagia R13.10 and Irritable bowel syndrome K58.9 [facility] [address] [phone] 09/13/2024 David Mcdowell Dysphagia R13.10 ; Chronic gastritis K29.50 ; Screen for colon cancer Z12.11 ; Constipation K59.00 and Irritable bowel syndrome K58.9 [facility] [address] [place] [phone] 04/05/2024 David Mcdowell [facility] [address] [place] [phone] 04/19/2024 David Mcdowell [facility] [address] [phone] 04/21/2024 David Mcdowell [facility] [address] [place] [address] [address] [place] [phone] 04/27/2024 David Mcdowell Assessments Encounter Date Diagnosis (ICD Code) Assessment Notes Treatment Notes Treatment Clinical Notes Section Notes 04/21/2024 Dysphagia, oropharyngeal phase (ICD-10 - R13.12) 04/21/2024 Hiatal hernia (ICD-10 - K44.9) 04/12/2024 Irritable bowel syndrome (ICD-10 - K58.9) Use daily Benefiber and Miralax for the constipation Use the Hyoscyamine once or twice a day for the IBS Overall, Cassie appears well from a clinical standpoint. However, her significant and progressive dysphagia with symptoms of esophageal obstruction and esophageal spasm are obviously concerning. We did review that it would be important to rule out any significant esophageal stricture, erosive esophagitis, hiatal hernia, and/or eosinophilic esophagitis. We did discuss potential esophageal neoplasm but I think that would be unlikely given her good clinical appearance at this time. As such, I did recommend an upper endoscopy with possible balloon dilation in the near future. Even if the exam appears normal I will plan to obtain biopsies from the esophagus to rule out eosinophilic esophagitis. Depending upon the findings we may want to start her on a PPI as well. Full consent was obtained from her for the endoscopy and possible dilation, including risks of bleeding and perforation. The procedure will be done with monitored anesthesia care. We also reviewed that given her possible underlying autoimmune condition, including Sjogren's, another possibility would be that of some type of esophageal dysmotility. Given her symptoms of Raynaud's and some possible autoimmune issues, she may have a component of scleroderma with associated esophageal dysmotility on that basis. She may have a primary esophageal dysmotility issue such as achalasia as well. Depending upon the findings on the upcoming endoscopy we may need to pursue a further workup with a barium swallow and esophageal motility testing. In regard to her underlying irritable bowel syndrome and constipation, I did advise her to continue her fiber supplements but to start using MiraLax again on a daily basis. I've also given her a new prescription for the hyoscyamine 0.375 mg to use once or twice a day for the abdominal discomfort as well. I did advise Cassie to be very careful eating between now and the endoscopy so as to avoid any type of esophageal obstruction. Cassie was comfortable with this plan. Thank you again for allowing me to participate in Cassie's care. I shall continue to keep you advised of her progress. 04/12/2024 Dysphagia (ICD-10 - R13.10) This may be an esophageal motiliity problem related to an autoimmune condition like Sjogren's or Scleroderma(yo u can ask Dr. Marie) Overall, Cassie appears well from a clinical standpoint. However, her significant and progressive dysphagia with symptoms of esophageal obstruction and esophageal spasm are obviously concerning. We did review that it would be important to rule out any significant esophageal stricture, erosive esophagitis, hiatal hernia, and/or eosinophilic esophagitis. We did discuss potential esophageal neoplasm but I think that would be unlikely given her good clinical appearance at this time. As such, I did recommend an upper endoscopy with possible balloon dilation in the near future. Even if the exam appears normal I will plan to obtain biopsies from the esophagus to rule out eosinophilic esophagitis. Depending upon the findings we may want to start her on a PPI as well. Full consent was obtained from her for the endoscopy and possible dilation, including risks of bleeding and perforation. The procedure will be done with monitored anesthesia care. We also reviewed that given her possible underlying autoimmune condition, including Sjogren's, another possibility would be that of some type of esophageal dysmotility. Given her symptoms of Raynaud's and some possible autoimmune issues, she may have a component of scleroderma with associated esophageal dysmotility on that basis. She may have a primary esophageal dysmotility issue such as achalasia as well. Depending upon the findings on the upcoming endoscopy we may need to pursue a further workup with a barium swallow and esophageal motility testing. In regard to her underlying irritable bowel syndrome and constipation, I did advise her to continue her fiber supplements but to start using MiraLax again on a daily basis. I've also given her a new prescription for the hyoscyamine 0.375 mg to use once or twice a day for the abdominal discomfort as well. I did advise Cassie to be very careful eating between now and the endoscopy so as to avoid any type of esophageal obstruction. Cassie was comfortable with this plan. Thank you again for allowing me to participate in Cassie's care. I shall continue to keep you advised of her progress. 09/13/2024 Dysphagia (ICD-10 - R13.10) Continue omeprazole daily for the symptoms of the swallowing issues Overall, Cassie appears to be doing very well from a GI standpoint. She is not having any further upper GI complaints at this time. We did review the findings on the upper endoscopy and at this point I advised her to continue omeprazole as it does seem to be helping her. However I did advise her that she could also at some point try to decrease it or stop it altogether to see if she needs it long-term. I will leave that up to her. If things remain well I do not think she would need any further diagnostic testing in this regard. Her irritable bowel syndrome and constipation seem to be quite stable on the current regimen of the MiraLAX, Benefiber, and hyoscyamine. I did advise her to continue these on a regular basis. We did review that she would be due for a follow-up screening colonoscopy in 2032 given her negative exam in 2022. At this point, if things remain stable, she will see me on a as needed basis. Cassie was very comfortable with this plan. Thank you again for allowing me to participate in Cassie's care. I shall continue to keep you advised of her progress as needed. Please do not hesitate to contact me if I can be of any further assistance as well.. 04/21/2024 Chronic gastritis (ICD-10 - K29.50) 09/13/2024 Chronic gastritis (ICD-10 - K29.50) Overall, Cassie appears to be doing very well from a GI standpoint. She is not having any further upper GI complaints at this time. We did review the findings on the upper endoscopy and at this point I advised her to continue omeprazole as it does seem to be helping her. However I did advise her that she could also at some point try to decrease it or stop it altogether to see if she needs it long-term. I will leave that up to her. If things remain well I do not think she would need any further diagnostic testing in this regard. Her irritable bowel syndrome and constipation seem to be quite stable on the current regimen of the MiraLAX, Benefiber, and hyoscyamine. I did advise her to continue these on a regular basis. We did review that she would be due for a follow-up screening colonoscopy in 2032 given her negative exam in 2022. At this point, if things remain stable, she will see me on a as needed basis. Cassie was very comfortable with this plan. Thank you again for allowing me to participate in Cassie's care. I shall continue to keep you advised of her progress as needed. Please do not hesitate to contact me if I can be of any further assistance as well.. 09/13/2024 Screen for colon cancer (ICD-10 - Z12.11) Overall, Cassie appears to be doing very well from a GI standpoint. She is not having any further upper GI complaints at this time. We did review the findings on the upper endoscopy and at this point I advised her to continue omeprazole as it does seem to be helping her. However I did advise her that she could also at some point try to decrease it or stop it altogether to see if she needs it long-term. I will leave that up to her. If things remain well I do not think she would need any further diagnostic testing in this regard. Her irritable bowel syndrome and constipation seem to be quite stable on the current regimen of the MiraLAX, Benefiber, and hyoscyamine. I did advise her to continue these on a regular basis. We did review that she would be due for a follow-up screening colonoscopy in 2032 given her negative exam in 2022. At this point, if things remain stable, she will see me on a as needed basis. Cassie was very comfortable with this plan. Thank you again for allowing me to participate in Cassie's care. I shall continue to keep you advised of her progress as needed. Please do not hesitate to contact me if I can be of any further assistance as well.. 09/13/2024 Constipation (ICD-10 - K59.00) Continue Miralax every morning and the Benefiber during the day Overall, Cassie appears to be doing very well from a GI standpoint. She is not having any further upper GI complaints at this time. We did review the findings on the upper endoscopy and at this point I advised her to continue omeprazole as it does seem to be helping her. However I did advise her that she could also at some point try to decrease it or stop it altogether to see if she needs it long-term. I will leave that up to her. If things remain well I do not think she would need any further diagnostic testing in this regard. Her irritable bowel syndrome and constipation seem to be quite stable on the current regimen of the MiraLAX, Benefiber, and hyoscyamine. I did advise her to continue these on a regular basis. We did review that she would be due for a follow-up screening colonoscopy in 2032 given her negative exam in 2022. At this point, if things remain stable, she will see me on a as needed basis. Cassie was very comfortable with this plan. Thank you again for allowing me to participate in Cassie's care. I shall continue to keep you advised of her progress as needed. Please do not hesitate to contact me if I can be of any further assistance as well.. 09/13/2024 Irritable bowel syndrome (ICD-10 - K58.9) Continue the Hyoscyamine 0.375 mg daily beach morning for the IBS Overall, Csasie appears to be doing very well from a GI standpoint. She is not having any further upper GI complaints at this time. We did review the findings on the upper endoscopy and at this point I advised her to continue omeprazole as it does seem to be helping her. However I did advise her that she could also at some point try to decrease it or stop it altogether to see if she needs it long-term. I will leave that up to her. If things remain well I do not think she would need any further diagnostic testing in this regard. Her irritable bowel syndrome and constipation seem to be quite stable on the current regimen of the MiraLAX, Benefiber, and hyoscyamine. I did advise her to continue these on a regular basis. We did review that she would be due for a follow-up screening colonoscopy in 2032 given her negative exam in 2022. At this point, if things remain stable, she will see me on a as needed basis. Cassie was very comfortable with this plan. Thank you again for allowing me to participate in Cassie's care. I shall continue to keep you advised of her progress as needed. Please do not hesitate to contact me if I can be of any further assistance as well.. Plan Of Treatment Pending Test Test Name Order Date CHEM 7 PROFILE 01/06/2012 LIVER PROFILE 01/06/2012 AMYLASE 01/06/2012 CBC with MANUAL DIFFERENTIAL 01/06/2012 SED RATE (ESR) 01/06/2012 CLOSTRIDIUM DIFF TOXIN A&B (C DIFF) 12/26 STOOL WBC 01/06/2012 CELIAC PANEL #10 01/06/2012 CELIAC PANEL #10 03/31/2012 ENDOMYSIAL IGA 01/06/2012 ENDOMYSIAL IGA 03/31/2012 TRANSGLUTAMINASE AB IGA 03/31/2012 TRANSGLUTAMINASE AB IGA 01/06/2012 TRANSGLUTAMINASE AB IGG 03/31/2012 TRANSGLUTAMINASE AB IGG 01/06/2012 OVA & PARASITES (O&P) 01/06/2012 ROUTINE CULTURE 01/06/2012 Future Test Test Name Order Date COLONOSCOPY 03/31/2012 COLONOSCOPY 07/14/2022 UPPER GI ENDOSCOPY BALLOOON DILATION OF ESOPH 04/12/2024 Insurance Providers Payer Name Payer Address Payer Phone Subscriber Number Group Number Insured Name Patient Relationship to Insured Coverage Start Date Coverage End Date [employer] [address] [address] [place] [address] [id number] CAYDEN CHRISTIANSON Self - patient is the insured Medical (General) History Medical History History ICD Code Colonoscopy 08-01-2003 with the finding of proctitis Denies SC,DM,CVA,renal disease,asthma Spontaneous pneumothorax Hypothyroidism Negative screening colonoscopy in 2--no polyps, no proctitis Diverticulitis in approx 201 5--describes a CT scan and outpatient antibiotics IBS with constipation Hyperlipidemia Anxiety Ovarian cysts COVID 05/2022 Screening colonoscopy in Aug was negative other than a hyperplastic polyp [address] Marie at [facility] from Rheumatology for workup of possible autoimmune disease including either Sjogren's disease or Lupus 03/2024 EGD with dilation up to a 20mm balloon--no esophagitis, no EoE, no strictures/no rings, small hiatal hernia, bx neg for H.pylori in stomach Surgical History Surgery Date(Month/Year) Right elbow ulnar nerve decompression 10/31/2023 Cholecystectomy Partial hysterectomy 2007
--- OUTSIDE RECORDS SUMMARY | 2024-09-26 17:06 | XMS_ITS ---
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 Generated for Lisa elias/Timmy/eTransmitting on:?09/26/2024 05:06 PM EDT
--- OUTSIDE RECORDS SUMMARY | 2024-09-26 17:07 | XMS_ITS ---
Author Organization [facility] Address [address] [place] [address] Care Team Providers Care Customs Broker Name Role Phone JOCE RUTH Primary Care Provider David Cool [phone] Allergies Allergen (clinical drug ingredient) Drug/Non Drug Allergy documented on EMR Reaction Allergy Type Onset Date Status Codeine Phosphate Unknown Drug Allergy Active REASON FOR VISIT Patient presents today for dysphagia Medications Medication SIG (Take, Route, Frequency, Duration) Notes Start Date End Date Status Nortriptyline HCl 10 MG Orally Active Atorvastatin Calcium Active MiraLax Active Synthroid Active Xanax 0.5mg BID PRN Active Hyoscyamine Sulfate ER 0.375 MG [...] pain/discomfort/bloati ng for 30 days 08/02/2020 Not-Taking Levothyroxine Sodium Active Escitalopram Oxalate Active Ibuprofen PRN Active Immunizations Vaccine Route Administration Date Status Comme nts Influenza Unknown 09/13/2024 Refused Vital Signs Temperature 97.3 degrees Fahrenheit 09/14/19 25 Blood pressure systolic 001 mm Hg 09/14/19 25 Blood pressure diastolic 01 mm Hg 025 Height 62 in 09/13/2024 Weight 145 lbs 09/13/2024 BMI 26.52 kg/m2 09/13/2024 Encounters Encounter Location Date Provider Diagnosis [facility] [address] [place] [address] 09/13/2024 David Mcdowell Dysphagia R13.10 ; Chronic gastritis K29.50 ; Screen for colon cancer Z12.11 ; Constipation K59.00 and Irritable bowel syndrome K58.9 Assessments Encounter Date Diagnosis (ICD Code) Assessment Notes Treatment Notes Treatment Clinical Notes Section Notes 09/13/2024 Dysphagia (ICD-10 - R13.10) Continue omeprazole [...] of any further assistance as well.. 09/13/2024 Chronic gastritis (ICD-10 - K29.50) Overall, [...] and the Benefiber during the day Overall, Cassei appears to be doing very well from [...] daily beach morning for the IBS Overall, Cassie appears to be doing very [...] further assistance as well.. Plan Of Treatment Treatment Notes Assessment Notes Dysphagia Continue omeprazole daily for the symptoms of the swallowing issues Constipation Continue Miralax clark ry morning and the Benefiber during the day Irritable bowel syndrome Continue the Hy oscyamine 0.375 mg daily beach morning for the IBS Next Appt Details Follow Up: prn, Reason: Progress Notes * CAYDEN NUNEZ FDOB:[birth year] (63 yo F)Acc No.[id number]:09/13/2024 Progress Notes Patient:?CAYDEN NUNEZ Provider:?David Mcdowell MD :1960???Age:63 Y???Sex:Female D ate:09/13/2024 [facility] Pcp:JOCE RUTH Subjective: * Chief Complaints: * ???Patient presents today fo r dysphagia * HPI: ???incontinence:? I saw Cassie in follow-up today in regard to her previous history of dysphagia, chronic irritable bowel syndrome, and chronic constipation. I last saw Cassie in March 2024, at which time she underwent an upper endoscopy with balloon dilation for her symptoms of dysphagia. This did reveal a small hiatal hernia but there was no evidence of any esophagitis, Pulliam's esophagus, esophageal stricture, nor esophageal ring. I did use a large balloon to dilate the gastroesophageal junction although it was not particularly tight. Biopsies from the proximal esophagus were negative for eosinophilic esophagitis. There was some minimal gastritis but biopsies from the stomach were negative for H. pylori. Since the procedure she has been using omeprazole 20 mg daily as I felt she may have been having some reflux- induced esophageal spasm. She has found that the medication has definitely helped things and she reports that she is no longer having any dysphagia nor sense of globus as she had previously. She is eating comfortably. She denies any nausea, vomiting, early satiety, abdominal pain, jaundice, nor unintentional weight loss. She describes that her constipation remains quite stable on her regimen of daily MiraLAX along with Benefiber 2 or 3 times a day. She has also been using hyoscyamine 0.375 mg daily each morning and this has been working well in preventing any abdominal cramps and discomfort. Her main issue at the present time is that of a lot of orthopedic issues since suffering a fall in the hospital cafeteria on April 27, 2024. She suffered a fractured humerus, torn rotator cuff, and injuries to both meniscuses in her knees. She has been out of work since that time. * ROS:?General/Constitutional:?Change in appetite?denies.?Chills?denies.?Fatigue?denies.?Ophthalmologic:?Patient denies?Dry eyes.?ENT:?Patient denies?Dry mouth.?Respiratory:?Patient denies?No coughing/hemoptysis..?Cardiovascular:?Patient denies? No chest pain/orthopnea..?Gastrointestinal:?Comments?See HPI for details.?Genitourinary:?Patient denies? No dysuria/hematuria..?Musculoskeletal:?Patient denies?She has been having a lot of arthralgias and body aches for which she is seeing rheumatology.?Skin:?Patient denies?No rash/pruritus..?Neurologic:?Patient denies? No headaches/seizures..?Psychiatric:?Patient denies?Per PMH.? * Medical History:? * Surgical History:?Partial hy sterectomy 2008Cholecystectomy Right elbow ulnar nerve decompression 202310/31/2023 * Hospitalization/Major Diagno stic Procedure:?No Hospitalization History. * Family History:?Father: dece ased.?Mother: alive, diagnosed with HTN (hypertension), Diabetes.?Siblings: brother has ulcerative colitis.? Denies any family hx of colon cancer, colon polyps, liver ds. Brother has ulcerative colitis. * Social History:?Tobacco Use:?Tobacco Use/Smoking?Are you a: nonsmoker.?Drugs/Alcohol:?Alcohol Screen?Points: 1, Interpretation: Negative.?Miscellaneous:?Marital status: . 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 ???Nonsmoker; no alcohol. * Medications:?TakingGabapenti n 100 MG Capsule 1 capsule at bedtime Orally Once a day Benefiber MiraLax Synthroid Xanax 0.5mg BID , Notes to Pharmacist: PRNNortriptyline HCl 10 MG Capsule Orally Atorvastatin Calcium Levothyroxine Sodium Escitalopram Oxalate Ibuprofen , Notes to Pharmacist: PRNHyoscyamine Sulfate ER 0.375 MG Tablet Extended Release 12 Hour 1/2 to 1 tablet Orally Q 10-12 hours abdominal cramps and discomfort Omeprazole 20 MG Capsule Delayed Release 1 Orally Once a day every morning Taking Gabapentin 100 MG Capsule 1 capsule at bedtime Orally Once a day Taking Benefiber Taking MiraLax Taking Synthroid Taking Xanax 0.5mg BID , Notes to Pharmacist: PRNTaking Nortriptyline HCl 10 MG Capsule Orally Taking Atorvastatin Calcium Taking Levothyroxine Sodium Taking Escitalopram Oxalate Taking Ibuprofen , Notes to Pharmacist: PRNTaking Hyoscyamine Sulfate ER 0.375 MG Tablet Extended Release 12 Hour 1/2 to 1 tablet Orally Q 10-12 hours abdominal cramps and discomfort Taking Omeprazole 20 MG Capsule Delayed Release 1 Orally Once a day every morning Not-Taking/PRNHyoscyamine Sulfate 0.125 MG Tablet 1-2 Orally Q 4-6 hours prn abdominal pain/discomfort/bloating Medication List reviewed and reconciled with the patientNot-Taking/PRN Hyoscyamine Sulfate 0.125 MG Tablet 1-2 Orally Q 4-6 hours prn abdominal pain/discomfort/bloating Medication List reviewed and reconciled with the patient * Allergies:?Codeine Phosphate yes[Allergies Verified] Objective: * Vitals:?Wt: 145 lbs, Ht: 62 in, BMI:26.52Index, BP: 001/01 mm Hg, Temp: 97.3, Wt-k.77. * Examination: ???General Examination: ?GENERAL APPEARANCE:?pleasant, well nourished, well developed, in no acute distress.?EYES:?sclera non-icteric.?ORAL CAVITY:?mucosa moist.?NECK/THYROID:?no cervical lymphadenopathy, neck supple.?SKIN:?nonjaundiced, no spider angiomata..?HEART:?S1, S2 normal.?LUNGS:?clear to auscultation bilaterally.?ABDOMEN:?normal bowel sounds, no guarding or rigidity, no hepatosplenomegaly, no masses palpable, soft, nontender, nondistended..?EXTREMITIES:?no edema.?NEUROLOGIC:?alert and oriented.? Assessment: * Assessment: 1.?Dysphagia - R13.10 (Prima ry)???2.?Chronic gastritis - K29.50???3.?Screen for colon cancer - Z12.11???4.?Constipation - K59.00???5.?Irritable bowel syndrome - K58.9??? Overall, Cassie appears to be doing very [...] be of any further assistance as well.. Plan: * Treatment: 2.?Constipation? Notes: Continue Miralax every morning and the Benefiber during the day?? 3.?Irritable bowel syndrome? Notes: Continue the Hyoscyamine 0.375 mg daily beach morning for the IBS?? * Immunizations:? Influenza (Not administered - Refused: Patient decision) * Procedure Codes:?3017F COLOR ECTAL CA SCREEN DOC [id number] TOBACCO NON-[id number] BP SCR NOT PRFRM REC REASON NOS * Preventive Medicine:? ??Counseling:?Care goal follow-up plan:?Above Normal BMI Follow-up?Dietary management education, guidance, and counseling,?BMI management provided?Yes.? * Follow Up:?prn * * Sign off status: Completed true * Provider:?David Mcdowell MD Date:? 025 Generated for Lisa elias/Timmy/eTransmitting on:?09/26/2024 05:06 PM EDT History and Physical Notes * Examination Category Sub-Category Detail Notes Category Not es General Examination GENERAL APPEARANCE: pleasant , well nourished, well developed, in no acute distress EYES: sclera non-icteric NECK/THYROID: no cervical lymphade nopathy, neck supple HEART: S1, S2 normal LUNGS: clear to auscultatio n bilaterally ABDOMEN: normal bowel sounds, no guarding or rigidity, no hepatosplenomegaly, no masses palpable, soft, nontender, nondistended. NEUROLOGIC: alert and oriented SKIN: nonjaundiced, no spi leo angiomata. EXTREMITIES: no edema ORAL CAVITY: mucosa moist
== END 2024-09-26 15:48 | disposition home or self-care (01) ==
LOC: HO.HMCC 14:18
PROVIDERS: PCP Nurse Practitioner Family; Visit Provider Nurse Practitioner Family
DX: Z00.01 Encounter for general adult medical examination with abnormal findings (principal); E55.9 Vitamin D deficiency, unspecified

== ENCOUNTER → 2024-09-26 14:18 | Outpatient (BNVA) | payer OTHER, SELFPAY | PROVIDERS: PCP Nurse Practitioner Family; Visit Provider Nurse Practitioner Family | DX: Z00.01 Encounter for general adult medical examination with abnormal findings (principal); E55.9 Vitamin D deficiency, unspecified | CPT/HCPCS: 96127 ==

== ENCOUNTER 2024-09-27 08:44 | Outpatient (REF) | payer OTHER, SELFPAY ==
--- NOTE | ~2024-09-27 | XR_ITS ---
EXAMINATION: XR SHOULDER, LEFT CLINICAL INFORMATION: M25.512 - Pain in left shoulder COMPARISON: 08/02/24, 06/12/2024. TECHNIQUE: AP external and internal rotation views of the left shoulder. FINDINGS: Normal bone mineralization. No fracture, dislocation, or suspicious bone lesion. Normal alignment. The glenohumeral joint is normal in appearance. The AC joint demonstrates mild spurring predominantly superior surface. There is a type III acromion. No undersurface spurring. The subacromial space is preserved. No abnormal soft tissue calcifications. Remainder of the bony and soft tissue structures appear normal. XR/XR shoulder LT min 2V IMPRESSION: No significant interval change. Mild AC joint arthritis. Otherwise normal exam. Electronically signed by: Zana Oliveros MD 09/28/2024 09:07 AM EDT
--- OUTSIDE RECORDS SUMMARY | 2024-09-27 09:16 | XMS_ITS ---
Author Organization [facility] Address [address] [place] [address] Care Team Providers Care Helmet Coverer Name Role Phone JOCE RUTH Primary Care Provider David Cool [phone] Allergies Allergen (clinical drug ingredient) Drug/Non Drug [...] 09/13/2024 Encounters Encounter Location Date Provider Diagnosis [facility] [address] [place] [address] 09/13/2024 David Mcdowell Dysphagia R13.10 ; Chronic [...] * CAYDEN NUNEZ FDOB:[birth year] (63 yo F)Acc No.[id number]:09/13/2024 Progress Notes Patient:?CAYDEN NUNEZ Provider:?David Mcdowell MD :1960???Age:63 Y???Sex:Female D ate:09/13/2024 [facility] Pcp:JOCE RUTH Subjective: * Chief Complaints: * [...] 1, Interpretation: Negative.?Miscellaneous:?Marital status: . 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 ???Nonsmoker; no alcohol. * Medications:?TakingGabapenti n 100 [...] Procedure Codes:?3017F COLOR ECTAL CA SCREEN DOC [id number] TOBACCO [id number] BP SCR NOT PRFRM REC REASON NOS * Preventive Medicine:? ??Counseling:?Care goal follow-up plan:?Above Normal BMI Follow-up?Dietary management education, guidance, and counseling,?BMI management provided?Yes.? * Follow Up:?prn * * Sign off status: Completed true * Provider:?David Mcdowell MD Date:? 025 Generated for Lisa elias/Timmy/eTransmitting on:?09/27/2024 09:16 AM EDT History and Physical Notes * Examination [...]
--- OUTSIDE RECORDS SUMMARY | 2024-09-27 09:16 | XMS_ITS | Patient Health Record ---
Author Organization [facility] Address [address] [place] [address] Care Team Providers Care Color Printer Operator Name Role Phone JOCE DENNY Primary Care Provider David Cool [phone] Allergies Allergen (clinical drug ingredient) Drug/Non Drug Allergy documented on EMR Reaction Allergy Type Onset Date Status Codeine Phosphate Unknown Drug Allergy Active Results Component Value Reference Range Notes Pathology Reviewed date:04/27/2024 06:59:01 PM Interpretation: Performing Lab:[facility], [address] [place] [phone] Notes/Report: Name: Haydee Christianson Age/Sex: 63/F : 1960 Unit#: [id number] Attend Dr: David Mcdowell MD Re04/21/24 Status : [facility] Location: [facility] Disch: SPEC : [id number] RECD : 04/21/24 STATUS: NATHAN UREÑA NUM: [id number] SERENA: 04/21/[address] [facility] DR: David Mcdowell MD ENTERED: 04/21/24 07 SP TYPE: Surgical OTHR DR: Joce Denny [facility] ORDERED: HE Stain/6, Gross Micro L4/2, IHC, [...] pylori on A Copies To: Joce Denny [facility], [address] [address] CONTINUED ON NEXT PAGE Name: Haydee Christianson Age/Sex: 63/F : 1960 Unit#: [id number] Attend Dr: David Mcdowell MD Re04/21/24 Status : [facility] Location: [facility] Disch: SPEC : [id number] RECD : 04/21/24 STATUS: SHARYNAurelia YUSUFJaneth NUM: [id number] SERENA: 04/21/[address] [facility] [address]: David Mcdowell MD ENTERED: 04/21/24 SP TYPE: Surgical OTHR DR: Joce Denny [facility]- ORDERED: HE Stain/6, Gross Micro L4/2, IHC, H. pylori Copies To: (Continued) David Mcdowell MD [facility] [address] [place], [place] [id number] Signed (si gnature on file) Davi Moreno [...] Status Risk Notes Problem Irritable bowel syndrome (91034713) Irritable bowel syndrome (K58.9) Active confirmed Problem Constipation (19154272) Constipation (K59.00) Active confirmed Problem Diverticular disease of colon (514340499) Diverticulosis of large intestine without perforation or abscess without bleeding (K57.30) Active confirmed Problem Oropharyngeal dysphagia (46467460) Dysphagia, oropharyngeal phase (R13.12) Active confirmed Problem Dysphagia (87705860) Dysphagia (R13.10) Active confirmed Problem 794340438 Screen for colon cancer (Z12.11) Active confirmed Problem Right lower quadrant pain (015795151) Abdominal pain, RLQ (R10.31) Active confirmed Problem Chronic gastritis (2812656) Chronic gastritis (K29.50) Active confirmed Vital Signs Temperature 97.3 degrees Fahrenheit 09/13/2024 Blood pressure diastolic 01 mm Hg 09/13/2024 Height 62 in 09/13/2024 Blood pressure systolic 001 mm Hg 09/13/2024 Weight 145 lbs 09/13/2024 BMI 26.52 kg/m2 09/13/2024 Encounters Encounter Location Date Provider Diagnosis [facility] [address] [place] [id number] 04/21/2024 David Mcdowell Dysphagia, oropharyngeal phase R13.12 ; Hiatal hernia K44.9 and Chronic gastritis K29.50 [facility] [address] [place] [address] 04/12/2024 David Mcdowell Dysphagia R13.10 and Irritable bowel syndrome K58.9 [facility] [address] [address] 09/13/2024 David Mcdowell Dysphagia R13.10 ; Chronic gastritis K29.50 ; Screen for colon cancer Z12.11 ; Constipation K59.00 and Irritable bowel syndrome K58.9 [facility] [address] [place] [phone] 04/05/2024 David Mcdowell [facility] [address] [place] [address] 04/19/2024 David Mcdowell [facility] [address] [address] 04/21/2024 David Mcdowell [facility] [address] [place] [address] [address] [place] [phone] 04/27/2024 David Mcdowell Assessments Encounter Date Diagnosis [...] Coverage Start Date Coverage End Date [employer] [address] [address] [place] [address] [id number] CAYDEN CHRISTIANSON Self - patient is the insured Medical (General) History Medical History History ICD Code Colonoscopy 08-01-2003 with the finding of proctitis Denies CT,DM,CVA,renal disease,asthma Spontaneous pneumothorax Hypothyroidism Negative screening colonoscopy in 2--no polyps, no proctitis Diverticulitis in approx 201 5--describes a CT scan and outpatient antibiotics IBS with constipation Hyperlipidemia Anxiety Ovarian cysts COVID 05/2022 Screening colonoscopy in Aug was negative other than a hyperplastic polyp [address] Marie at [facility] from Rheumatology for workup of possible autoimmune disease including either Sjogren's disease or Lupus 03/2024 EGD with dilation up to a 20mm balloon--no esophagitis, no EoE, no strictures/no rings, small hiatal hernia, bx neg for H.pylori in stomach Surgical History Surgery Date(Month/Year) Right elbow ulnar nerve decompression 10/31/2023 Cholecystectomy Partial hysterectomy 2007
--- OUTSIDE RECORDS SUMMARY | 2024-09-27 09:16 | XMS_ITS ---
Author Organization [facility] Address [address] [place] [address] Care Team Providers Care Outside Sales Account Representative Name Role Phone JOCE RUTH Primary Care Provider David Cool [phone] REASON FOR VISIT Omeprazole 20mg Rx Medications Medication SIG (Take, Route, Fr equency, Duration) Notes Start Date End Date Status Omeprazole 20 MG 1 Orally Once a day every morning for 30 day(s) 04/21/2024 Active Encounters Encounter Location Date Provider Diagnosis [facility] [address] [place] [phone] 04/21/2024 David Mcdowell Plan Of Treatment Medication Medication Name Sig Start Date Stop Date Notes Omeprazole 20 MG 1 Orally Once a day every morning for 30 day(s) 04/21/2024 Progress Notes * EMIRGABRIELE BOJORQUEZHLEEN FDOB:[birth year] (63 yo F)Acc No.[id number]:04/21/2024 Patient:?CAYDEN NUNEZ :1960???Age:63 Y???Sex:Female Address:[place] [address] * Refills? Start Omeprazole Capsule Delayed Release, 20 MG, Orally, 30, 1, Once a day every morning, 30 day(s), Refills=6 * true * Date:? Generated for Lisa elias/Timmy/eTransmitting on:?09/27/2024 09:16 AM EDT
--- OUTSIDE RECORDS SUMMARY | 2024-09-27 09:16 | XMS_ITS ---
Author Organization [facility] Address [address] [place] [address] Care Team Providers Care Summer Law Clerk Name Role Phone JOCE RUTH Primary Care Provider David Cool [phone] Encounters Encounter Location Date Provider Diagnosis [facility] [address] [place] [address] 04/27/2024 David Mcdowell Plan Of Treatment No Information Progress Notes * CAYDEN NUNEZ FDOB:[birth year] (63 yo F)Acc No.[id number]:04/27/2024 Patient:?CAYDEN NUNEZ :1960???Age:63 Y???Sex:Female Address:[address] [place] [address] * true * Date:? Generated for Lisa elias/Timmy/eTransmitting on:?09/27/2024 09:16 AM EDT
== END 2024-09-27 08:45 | disposition home or self-care (01) ==
LOC: HO.HOSX 08:44
PROVIDERS: Visit Provider Physician Assistant
DX: M25.512 Pain in left shoulder (principal); S46.002A Unspecified injury of muscle(s) and tendon(s) of the rotator cuff of left shoulder, initial encounter; S42.255D Nondisplaced fracture of greater tuberosity of left humerus, subsequent encounter for fracture with routine healing
CPT/HCPCS: 73030; 99212

== ENCOUNTER 2024-09-27 11:19 | Outpatient (AMB) | payer OTHER, SELFPAY ==
[2024-09-27 11:31] VITALS: BMI 26.3
--- NOTE | 2024-09-27 11:31 | A.OFFVIS_ITS ---
Vital Signs 09/27/24 11:31 Height 5 ft 4 in Weight 153 lb BMI 26.3 Intake Visit Reasons: OV- LT humerus fx, DOI 04/27/24-8 week follow up Intake Note: Mackenzie is a 64 year old left hand dominant female who presents today for a follow up of left humerus fracture, DOI 04/27/24. At patient last visit she was to continue PT for the left shoulder to work on ROM and strength. She will remain out of work and will follow up in office 6-8 weeks. Patient reports she completed P.T however she is still having pain, soreness and limited ROM. She also mentioned she will be starting P.T for her knee tomorrow. Allergies No Known Allergies Allergy (Mild, Verified 09/27/24 11:35) NKA HPI HPI OV- LT humerus fx, DOI 04/27/24-8 week follow up: Details: 64-year-old female returns to the office today f/u left greater tuberoisty fx s/p fall at work 04/27/24. She reports ongoing pain in the left shoulder region and limited shoulder mobility affecting daily activities, like wearing a coat. She feels as though the pain in the shoulder relating to the fracture has improved, but the activities that require overhead movement or reaching continue to limit her. The patient has bilateral knee pain with significant limitations in mobility, reporting stiffness and locking during ambulation. She has received a cortisone injection in the left knee with little improvement. She describes stages in her daily activities due to pain and stiffness, with significant activity limitations affecting her daily routine. [facility] Medical History (Updated 09/26/24 @ 15:38 by Olvin Denny, 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 Undifferentiated connective tissue disease Lower back pain History of ulcerative colitis Knee pain, bilateral Bilateral hand pain Pain in joint involving multiple sites Ulnar neuropathy Lateral epicondylitis of elbow Right ovarian cyst Diverticulitis Acquired hypothyroidism Irritable bowel syndrome with constipation Surgical History (Reviewed 09/27/24 @ 11:35 by Marleny Peña [facility]) S/P decompression of ulnar nerve History of breast augmentation History of laparoscopic cholecystectomy History of partial hysterectomy History of tonsillectomy Family History Father No problems noted. Mother Breast cancer Hypothyroidism High cholesterol Diabetes mellitus HTN (hypertension) Daughter Ankylosing spondylitis Fibromyalgia Maternal Grandmother CVD (cardiovascular disease) Maternal Grandfather Lung cancer Paternal Grandfather Unknown family medical history Paternal Grandmother Unknown family medical history Maternal Aunt Melanoma Brother Melanoma Social History Housing: House Are you a primary career services coordinator to a significant other at home: No Do you presently have visiting nurse or other home services: No Alcohol intake: current Alcohol intake frequency: holidays/special occasions only Comment: counts correct Patient Tobacco Use Status: Former Tobacco user Years Smoked: quit 35 years ago e-Cigarette/Vaping Use: Never Used Second Hand Smoke Exposure: No service: No Current occupational status: employed Current occupation: [employer] Current occupational exposures/hazards: No Sexual orientation: Straight/Heterosexual Gender identity: Female Cognitive needs: No Hearing needs: No Vision needs: No Review of Systems Const All systems reviewed & are unremarkable except as noted in HPI and below Physical Exam Vital Signs: BMI result Body Mass Index 26.3 Const General: cooperative and no acute distress Orientation/consciousness: patient oriented x3 Resp Effort & Inspection: normal respiratory effort and able to speak in complete sentences Cardio Peripheral pulses: Peripheral pulses 2+ throughout Neuro General: patient oriented x3 Extrem Other: Right knee: Skin intact, no erythema or joint effusion. Lateral retropatellar tenderness present along with lateral joint line tenderness. Full ROM with crepitus. Positive Brent?s. No ligamentous laxity. NVI. Left knee : Skin intact, no erythema or joint effusion. She has medial and lateral joint tenderness and pain with palpation over the patella. Full ROm . NVI. Left shoulder: Normal to inspection. Tenderness over the bicipital groove and along the deltoid region of the shoulder. Forward flexion to 90, external rotation to 45, internal rotation to S1. Significant discomfort with RTC strength. Negative Yang and cross body abduction. NVI. ? Results Reviewed Results Reviewed: Xrays were obtained in the office today and personally reviewed by me of the left shoulder show stable well healed greater tuberosity fracture Assessment & Plan Assessment & Plan (1) Contusion of left knee: Code(s): S80.02XA - Contusion of left knee, initial encounter Category: Medical (2) Osteoarthritis of right knee: Code(s): M17.11 - Unilateral primary osteoarthritis, right knee Category: Medical (3) Complex tear of meniscus of right knee as current injury: Code(s): S83.203A - Other tear of unspecified meniscus, current injury, right knee, initial encounter Category: Medical (4) Tear of meniscus of left knee: Code(s): S83.207A - Unspecified tear of unspecified meniscus, current injury, left knee, initial encounter Category: Medical (5) Osteoarthritis of left knee: Code(s): M17.12 - Unilateral primary osteoarthritis, left knee Category: Medical (6) Fracture of greater tuberosity of left humerus: Code(s): S42.252A - Displaced fracture of greater tuberosity of left humerus, initial encounter for closed fracture Category: Medical Qualifiers: Encounter type: initial encounter Fracture type: closed Fracture alignment: nondisplaced Qualified Code(s): S42.255A - Nondisplaced fracture of greater tuberosity of left humerus, initial encounter for closed fracture (7) Injury of left rotator cuff: Code(s): S46.002A - Unspecified injury of muscle(s) and tendon(s) of the rotator cuff of left shoulder, initial encounter Category: Medical Qualifiers: Encounter type: initial encounter Qualified Code(s): S46.002A - Unspecified injury of muscle(s) and tendon(s) of the rotator cuff of left shoulder, initial encounter Plan During the visit, I discussed with the patient her shoulder and knee pain, emphasizing the likely diagnosis of ongoing rotator cuff pathology and osteoarthritis of the knees with degenerative vs acute obn chronic meniscus pathology. We discussed surgical intervention for the shoulder, pending further evaluation by Dr. Sanchez. For knee management, I explained the benefit and potential of gel injections as an alternative to cortisone if adequate relief is not obtained. I assured her these treatment options align with workmen's comp coverage. The patient expressed her concern over disrupted scheduling and appointment coordination, and I advised proactive communication with therapy and the office. She will remain out of work until she sees me back in 6 weeks for bilat knee. She will meet with Dr Sanchez to discuss further options with the left shoulder. Orders: Orders XR shoulder LT min 2V Today M25.512 - Pain in left shoulder Coding Level of Care Code Est Pt Level 3 (43507) Complex EM visit Add On G2211 Diagnoses Contusion of left knee S80.02XA Osteoarthritis of right knee M17.11 Complex tear of meniscus of right knee as current injury S83.203A Tear of meniscus of left knee S83.207A Osteoarthritis of left knee M17.12 Closed nondisplaced fracture of greater tuberosity of left humerus, initial encounter S42.255A Encounter type: initial encounter Fracture type: closed Fracture alignment: nondisplaced Injury of left rotator cuff, initial encounter S46.002A Encounter type: initial encounter
== END 2024-09-27 13:22 | disposition home or self-care (01) ==
LOC: HO.HOS 11:20
PROVIDERS: Visit Provider Physician Assistant
DX: S80.02XA Contusion of left knee, initial encounter (principal); S83.203A Other tear of unspecified meniscus, current injury, right knee, initial encounter; S83.207A Unspecified tear of unspecified meniscus, current injury, left knee, initial encounter; S42.255A Nondisplaced fracture of greater tuberosity of left humerus, initial encounter for closed fracture; M17.0 Bilateral primary osteoarthritis of knee; S46.002A Unspecified injury of muscle(s) and tendon(s) of the rotator cuff of left shoulder, initial encounter
CPT/HCPCS: 99213; G2211

== ENCOUNTER → 2024-09-27 11:22 | Outpatient (BNV) | payer OTHER, SELFPAY | PROVIDERS: Visit Provider Radiology Diagnostic Radiology | DX: M19.012 Primary osteoarthritis, left shoulder (principal) | CPT/HCPCS: 73030 ==

== ENCOUNTER 2024-11-06 10:15 | Outpatient (AMB) | payer OTHER, SELFPAY ==
--- NOTE | 2024-11-06 10:20 | MHC.OFFVIS ---
Intake Visit Reasons: OV LT shoulder eval ? surgery Intake Note: Mackenzie is a 64 year old left hand dominant female who presents today for a follow up of her left shoulder. History of Left Greater Tuberosity Humerus Fracture 04/27/24 while at work. She continues to have pain and limited ROM, particularly over the head motions and reaching. She reports that she has improved her ROM in the last few weeks but she is still significantly limited. She has numbness in the entire arm that comes and goes . Occasionally she gets a sharp pain in the collarbone and scapula. She is struggling with many daily activities. Allergies No Known Allergies Allergy (Mild, Verified 09/27/24 11:35) NKA HPI HPI OV LT shoulder eval ? surgery: Details: Mackenzie is a 64 year old left hand dominant female who presents today for a follow up of her left shoulder. History of Left Greater Tuberosity Humerus Fracture 04/27/24 while at work. She continues to have pain and limited ROM, particularly over the head motions and reaching. She reports that she has improved her ROM in the last few weeks but she is still limited. She has numbness in the arm that comes and goes . Occasionally she gets a sharp pain in the collarbone and scapula. Her primary complaint is bilateral knee pain. She states she fell on her knees at the time of injury in his difficulty standing from a seated position and going up and downstairs. Her right knee is worse than her left. She has not received any treatment for her knees. 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 Mother Breast cancer Hypothyroidism High cholesterol Diabetes mellitus HTN (hypertension) Daughter Ankylosing spondylitis Fibromyalgia Maternal Grandmother CVD (cardiovascular disease) Maternal Grandfather Lung cancer Paternal Grandfather Unknown family medical history Paternal Grandmother Unknown family medical history Maternal Aunt Melanoma Brother Melanoma Social History Housing: House Are you a primary health care facility administrator to a significant other at home: No Do you presently have visiting nurse or other home services: No Alcohol intake: current Alcohol intake frequency: holidays/special occasions only Comment: counts correct Patient Tobacco Use Status: Former Tobacco user Years Smoked: quit 35 years ago e-Cigarette/Vaping Use: Never Used Second Hand Smoke Exposure: No service: No Current occupational status: employed Current occupation: [employer] [place] Current occupational exposures/hazards: No Sexual orientation: Straight/Heterosexual Gender identity: Female Cognitive needs: No Hearing needs: No Vision needs: No Physical Exam Extrem Other: Left shoulder with 35 degrees of external rotation and 90 degrees of abduction. 140 degrees of combined glenohumeral abduction. She has 130 degrees of forward flexion. She can internally rotate to S1. She has a negative empty can. She has a positive Yang and Neer although mild. She has a negative [place]'s. Tenderness to palpation retropatellar facet bilateral knees with a mild right knee effusion. Office Procedures Joint Inj/Aspir; Non-Pain Clin Joint Injection/Drain Details: Injected 1 mL of Decadron and 3 mL 1% lidocaine and 3 mL of 0.25% Marcaine. Site was prepped using aseptic technique. Patient tolerated the procedure well. Shoulders, Hips, Knees, Knee Large Joint Injection : Bilateral Knee Coding Procedure code (CPT) selection complete Results Reviewed Results Reviewed: I personally reviewed the MR images. IMPRESSION 04/2024: 1. Comminuted nondisplaced fracture greater tuberosity of the humerus. 2. Approximately 50% undersurface critical zone tear/fraying of the supraspinatus tendon. No full-thickness tearing or tendon retraction. No rotator cuff atrophy. 3. No additional rotator cuff tear. Mild tendinosis of the subscapularis tendon and supraspinatus tendon near the footplate attachment. 4. Nonspecific fluid in the subacromial/subdeltoid bursa, in the setting of fracture. 5. Mild to moderate degenerative arthrosis in the AC joint. 6. No supraspinatus outlet impingement. Right knee: IMPRESSION: 1. No fracture or dislocation. 2. Oblique superior surface tear of the lateral meniscus at the junction of the body and anterior horn. There are extends into the anterior horn and anterior root entry zone. 3. Tricompartmental osteoarthrosis, moderate, most significant in the patellofemoral compartment as described where there is a grade IV chondromalacia patellar and subchondral bone plate edema. 4. Small amount of increased joint fluid. 5. Findings suggestive of prepatellar bursitis. Left knee: IMPRESSION: 1. Moderate osteoarthritis of the patellofemoral compartment. Mild osteoarthritis of the medial compartment. 2. Tear of the anterior horn of the lateral meniscus as described. 3. Small joint effusion. Small Ledesma's cyst. Assessment & Plan Assessment & Plan (1) Osteoarthritis of right knee: Code(s): M17.11 - Unilateral primary osteoarthritis, right knee Category: Medical Plan: Right knee with moderate to severe osteoarthritis. I injected her right knee. I do not recommend additional treatment at this time. She does have a systemic inflammation in pain over multiple parts of her body in his not working. I recommended she continue to be out of work. She is following up with her PCP to try to get some of these problems under control if she feels overwhelmed by Physical discomfort in multiple areas of the body. Explained that her right knee arthritis may continue to be a problem but at this time no additional treatment is warranted based on the MRI. (2) Osteoarthritis of left knee: Code(s): M17.12 - Unilateral primary osteoarthritis, left knee Category: Medical Plan: Left knee has less arthritis than the right and there is a very small lateral meniscus tear but I think her primary problem here is patellofemoral osteoarthritis. I also injected her left knee. No additional intervention warranted at this time. (3) Fracture of greater tuberosity of left humerus: Code(s): S42.252A - Displaced fracture of greater tuberosity of left humerus, initial encounter for closed fracture Category: Medical Qualifiers: Encounter type: initial encounter Fracture type: closed Fracture alignment: nondisplaced Qualified Code(s): S42.255A - Nondisplaced fracture of greater tuberosity of left humerus, initial encounter for closed fracture Plan: She had an undisplaced fracture of her greater tuberosity in the left shoulder. She also had a partial-thickness rotator cuff tear. It is difficult to dissect out which of these is more problematic but neither of them require surgical treatment this time and she is symptomatically improving. I recommend she continue her home exercise program and again no intervention warranted at this time. She will be out of work and follow up with her PCP and tried to figure out if they can figure out a way to get her back to work. Coding Level of Care Code Est Pt Level 4 (59166) Diagnoses Osteoarthritis of right knee M17.11 Osteoarthritis of left knee M17.12 Closed nondisplaced fracture of greater tuberosity of left humerus, initial encounter S42.255A Encounter type: initial encounter Fracture type: closed Fracture alignment: nondisplaced CPT Codes Shoulders, Hips, Knees, - Knee Large Joint Injection : Bilateral Knee ([id number])
--- OUTSIDE RECORDS SUMMARY | 2024-11-06 10:44 | XMS_ITS ---
Author Organization [facility] Address [address] [place] [address] Care Team Providers Care State Tested Nursing Assistant Name Role Phone JOCE RUTH Primary Care Provider David Cool [phone] Encounters Encounter Location Date Provider Diagnosis [facility] [address] [place] [address] 04/27/2024 David Mcdowell Plan Of Treatment No Information Progress Notes * CAYDEN NUNEZ FDOB:[birth year] (63 yo F)Acc No.[id number]:04/27/2024 Patient:?CAYDEN NUNEZ :1960???Age:63 Y???Sex:Female Address:[address] [place] [address] * true * Date:? Generated for Lisa elias/Timmy/eTransmitting on:?11/06/2024 10:44 AM EDT
--- OUTSIDE RECORDS SUMMARY | 2024-11-06 10:44 | XMS_ITS ---
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 [address] [place] [id number] 04/21/2024 David Mcdowell Plan Of Treatment Medication Medication Name Sig Start Date Stop Date Notes Omeprazole 20 MG 1 Orally Once a day every morning for 30 day(s) 04/21/2024 Progress Notes * EMIRGABRIELE BOJORQUEZHLEEN FDOB:[birth year] (63 yo F)Acc No.[id number]:04/21/2024 Patient:?CAYDEN NUNEZ :1960???Age:63 Y???Sex:Female Address:[place] [address] * Refills? Start Omeprazole Capsule Delayed Release, 20 MG, Orally, 30, 1, Once a day every morning, 30 day(s), Refills=6 * true * Date:? Generated for Lisa elias/Timmy/eTransmitting on:?11/06/2024 10:44 AM EDT
--- OUTSIDE RECORDS SUMMARY | 2024-11-06 10:45 | XMS_ITS | Patient Health Record ---
Author Organization [facility] Address [address] [place] [address] Care Team Providers Care Top Cager Name Role Phone JOCE DENNY Primary Care Provider David Cool [phone] Allergies Allergen (clinical drug ingredient) Drug/Non Drug Allergy documented on EMR Reaction Allergy Type Onset Date Status Codeine Phosphate Unknown Drug Allergy Active Results Component Value Reference Range Notes Pathology Reviewed date:04/27/2024 06:59:01 PM Interpretation: Performing Lab:[facility], [address] [place] [phone] Notes/Report: Name: Haydee Christianson Age/Sex: 63/F : 1960 Unit#: [id number] Attend Dr: David Mcdowell MD Re04/21/24 Status : [facility] Location: [facility] Disch: SPEC : [id number] RECD : 04/21/24 STATUS: NATHAN UREÑA NUM: [id number] SERENA: 04/21/[address] [facility] [address]: David Mcdowell MD ENTERED: 04/21/24 07 SP TYPE: Surgical OTHR DR: Joce Denny [facility] ORDERED: HE Stain/6, Gross Micro L4/2, IHC, [...] pylori on A Copies To: Joce Denny [facility], [address] [address] CONTINUED ON NEXT PAGE Name: Haydee Christianson Age/Sex: 63/F : 1960 Unit#: [id number] Attend Dr: David Mcdowell MD Re04/21/24 Status : [facility] Location: [facility] Disch: SPEC : [id number] RECD : 04/21/24 STATUS: SHARYNAurelia YUSUFJaneth NUM: [id number] SERENA: 04/21/[address] [facility] [address]: David Mcdowell MD ENTERED: 04/21/24 SP TYPE: Surgical OTHR DR: Joce Denny [facility]- ORDERED: HE Stain/6, Gross Micro L4/2, IHC, H. pylori Copies To: (Continued) David Mcdowell MD [facility] [address] [place], [place] [id number] Signed (si gnature on file) Davi Moreno [...] Status Risk Notes Problem Irritable bowel syndrome (73666024) Irritable bowel syndrome (K58.9) Active confirmed Problem Constipation (29897836) Constipation (K59.00) Active confirmed Problem Diverticular disease of colon (532535295) Diverticulosis of large intestine without perforation or abscess without bleeding (K57.30) Active confirmed Problem Oropharyngeal dysphagia (55978841) Dysphagia, oropharyngeal phase (R13.12) Active confirmed Problem Dysphagia (06120234) Dysphagia (R13.10) Active confirmed Problem 686784406 Screen for colon cancer (Z12.11) Active confirmed Problem Right lower quadrant pain (698301536) Abdominal pain, RLQ (R10.31) Active confirmed Problem Chronic gastritis (2511391) Chronic gastritis (K29.50) Active confirmed Vital Signs Temperature 97.3 degrees Fahrenheit 09/13/2024 Blood pressure diastolic 01 mm Hg 09/13/2024 Height 62 in 09/13/2024 Blood pressure systolic 001 mm Hg 09/13/2024 Weight 145 lbs 09/13/2024 BMI 26.52 kg/m2 09/13/2024 Encounters Encounter Location Date Provider Diagnosis [facility] [place] [address] [place] [phone] 04/21/2024 David Mcdowell Dysphagia, oropharyngeal phase R13.12 ; Hiatal hernia K44.9 and Chronic gastritis K29.50 [facility] [address] [place] [phone] 04/12/2024 David Mcdowell Dysphagia R13.10 and Irritable bowel syndrome K58.9 [facility] [address] [address] 09/13/2024 David Mcdowell Dysphagia R13.10 ; Chronic gastritis K29.50 ; Screen for colon cancer Z12.11 ; Constipation K59.00 and Irritable bowel syndrome K58.9 [facility] [address] [place] [address] 04/05/2024 David Mcdowell [facility] [address] [place] [address] 04/19/2024 David Mcdowell [facility] [address] [address] 04/21/2024 David Mcdowell [facility] [address] [place] [address] Drive [address] [place] [phone] 04/27/2024 David Mcdowell Assessments Encounter Date Diagnosis [...] 12/26 STOOL WBC 01/06/2012 CELIAC PANEL #10 03/31/2012 CELIAC PANEL #10 01/06/2012 ENDOMYSIAL IGA 03/31/2012 ENDOMYSIAL IGA 01/06/2012 TRANSGLUTAMINASE AB IGA 01/06/2012 TRANSGLUTAMINASE AB IGA 03/31/2012 TRANSGLUTAMINASE AB IGG 01/06/2012 TRANSGLUTAMINASE AB IGG 03/31/2012 OVA & PARASITES (O&P) 01/06/2012 ROUTINE CULTURE 01/06/2012 Future Test Test Name Order Date COLONOSCOPY 03/31/2012 COLONOSCOPY 07/14/2022 UPPER GI ENDOSCOPY [place]ALL[place]ON DILATION OF ESOPH 04/12/2024 Insurance Providers Payer Name Payer Address Payer Phone Subscriber Number Group Number Insured Name Patient Relationship to Insured Coverage Start Date Coverage End Date BLUE [employer] ASS[employer] [address] [address] [place] [address] [id number] CAYDEN CHRISTIANSON Self - patient is the insured Medical (General) History Medical History History ICD Code Colonoscopy 08-01-2003 with the finding of proctitis Denies [place],DM,CVA,renal disease,asthma Spontaneous pneumothorax Hypothyroidism Negative screening colonoscopy in 2--no polyps, no proctitis Diverticulitis in approx 201 5--describes a CT scan and outpatient antibiotics IBS with constipation Hyperlipidemia Anxiety Ovarian cysts COVID 05/2022 Screening colonoscopy in Aug was negative other than a hyperplastic polyp [address] Marie at [facility] from Rheumatology for workup of possible autoimmune disease including either Sjogren's disease or Lupus 03/2024 EGD with dilation up to a 20mm balloon--no esophagitis, no EoE, no strictures/no rings, small hiatal hernia, bx neg for H.pylori in stomach Surgical History Surgery Date(Month/Year) Right elbow ulnar nerve decompression 10/31/2023 Cholecystectomy Partial hysterectomy 2007
--- OUTSIDE RECORDS SUMMARY | 2024-11-06 10:45 | XMS_ITS ---
Author Organization [facility] Address [address] [place] [address] Care Team Providers Care Research Group Director Name Role Phone JOCE RUTH Primary Care Provider David Cool [phone] Allergies Allergen (clinical drug ingredient) Drug/Non Drug [...] 09/13/2024 Encounters Encounter Location Date Provider Diagnosis [facility] [address] [place] [address] 09/13/2024 David Mcdowell Dysphagia R13.10 ; Chronic [...] * CAYDEN NUNEZ FDOB:[birth year] (63 yo F)Acc No.[id number]:09/13/2024 Progress Notes Patient:?CAYDEN NUNEZ Provider:?David Mcdowell MD :1960???Age:63 Y???Sex:Female D ate:09/13/2024 [facility] Pcp:JOCE RUTH Subjective: * Chief Complaints: * [...] 1, Interpretation: Negative.?Miscellaneous:?Marital status: . 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 ???Nonsmoker; no alcohol. * Medications:?TakingGabapenti n [...] Procedure Codes:?3017F COLOR ECTAL CA SCREEN DOC [id number] TOBACCO NON-NNHJS7448 BP SCR NOT PRFRM REC REASON NOS * Preventive Medicine:? ??Counseling:?Care goal follow-up plan:?Above Normal BMI Follow-up?Dietary management education, guidance, and counseling,?BMI management provided?Yes.? * Follow Up:?prn * * Sign off status: Completed true * Provider:?David Mcdowell MD Date:? 025 Generated for Lisa elias/Timmy/eTransmitting on:?11/06/2024 10:44 AM EDT History and Physical Notes * [...]
== END 2024-11-06 11:39 | disposition home or self-care (01) ==
LOC: HO.HOS 10:15
PROVIDERS: PCP Nurse Practitioner Family; Visit Provider Orthopaedic Surgery
DX: M17.0 Bilateral primary osteoarthritis of knee (principal); S42.255A Nondisplaced fracture of greater tuberosity of left humerus, initial encounter for closed fracture; Z04.2 Encounter for examination and observation following work accident
CPT/HCPCS: 20610; 99214

== ENCOUNTER → 2024-11-06 10:15 | Outpatient (BNVA) | payer OTHER, SELFPAY | PROVIDERS: PCP Nurse Practitioner Family; Visit Provider Orthopaedic Surgery | DX: M17.0 Bilateral primary osteoarthritis of knee (principal); S42.255A Nondisplaced fracture of greater tuberosity of left humerus, initial encounter for closed fracture | CPT/HCPCS: 20610; 99212; J0665; J1100; J2003 ==

== ENCOUNTER 2024-11-09 14:58 | Outpatient (AMB) | payer OTHER, SELFPAY ==
--- NOTE | 2024-11-09 14:58 | A.OFFVIS_ITS ---
Intake Visit Reasons: TH Intake Note: Mackenzie is a 64 year old female who presents today via telephone for follow up of her left greater tuberosity humerus fracture, DOI: 04/27/24. Allergies No Known Allergies Allergy (Mild, Verified 11/09/24 14:59) NKA Medication List - Last Reconciled 11/10/24 by Adrianne Pang PA-C acyclovir 800 mg PO TID alprazolam 1 mg PO TID PRN atorvastatin 20 mg PO DAILY 90 days celecoxib (Celebrex) 200 mg PO BID 30 days escitalopram oxalate 20 mg PO DAILY hydroxychloroquine 200 mg PO DAILY levothyroxine 112 mcg PO QAM lidocaine 5% 1 patch topical DAILY nortriptyline 10 mg PO BEDTIME HPI HPI TH: Details: 64-year-old female presents for telehealth visit today with concerns in regards to her left shoulder and bilateral knees. At her recent visit with Dr. Sanchez she was evaluated and it was confirmed she does not need to proceed with left shoulder surgery given the improvements she has made with physical therapy. She did have bilateral knee steroid injections with Dr. Sanchez. She is concerned because her physical therapist had canceled her physical therapy appointments fo r her knees based off of her previous office visit note mentioning home exercise program. She states she just started physical therapy on her knees and would like to continue if possible. She also has an upcoming appointment with her primary care provider to discuss further recommendations for her systemic discomfort since her injury. 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 Mother Breast cancer Hypothyroidism High cholesterol Diabetes mellitus HTN (hypertension) Daughter Ankylosing spondylitis Fibromyalgia Maternal Grandmother CVD (cardiovascular disease) Maternal Grandfather Lung cancer Paternal Grandfather Unknown family medical history Paternal Grandmother Unknown family medical history Maternal Aunt Melanoma Brother Melanoma Social History Housing: House Are you a primary patient care provider to a significant other at home: No Do you presently have visiting nurse or other home services: No Alcohol intake: current Alcohol intake frequency: holidays/special occasions only Comment: counts correct Patient Tobacco Use Status: Former Tobacco user Years Smoked: quit 35 years ago e-Cigarette/Vaping Use: Never Used Second Hand Smoke Exposure: No service: No Current occupational status: employed 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 Current occupational exposures/hazards: No Sexual orientation: Straight/Heterosexual Gender identity: Female Cognitive needs: No Hearing needs: No Vision needs: No Review of Systems Const All systems reviewed & are unremarkable except as noted in HPI and below Physical Exam Resp Effort & Inspection: normal respiratory effort and able to speak in complete sentences Telehealth Telehealth Telehealth Platform: Telephone Location of provider rendering services: practice address Location of patient: address on file Patient Identification confirmed using: Name, : Yes Telehealth method: voice only Patient verbally consented to treatment: Yes Patient verbally consented to billing insurance company: Yes Patient informed of any privacy concerns related to visit: Yes Minutes spent on Phone/Video with Pt.: 25 Assessment & Plan Assessment & Plan (1) Complex tear of meniscus of right knee as current injury: Code(s): S83.203A - Other tear of unspecified meniscus, current injury, right knee, initial encounter Category: Medical (2) Osteoarthritis of right knee: Code(s): M17.11 - Unilateral primary osteoarthritis, right knee Category: Medical (3) Contusion of left knee: Code(s): S80.02XA - Contusion of left knee, initial encounter Category: Medical (4) Tear of meniscus of left knee: Code(s): S83.207A - Unspecified tear of unspecified meniscus, current injury, left knee, initial encounter Category: Medical (5) Osteoarthritis of left knee: Code(s): M17.12 - Unilateral primary osteoarthritis, left knee Category: Medical (6) Fracture of greater tuberosity of left humerus: Code(s): S42.252A - Displaced fracture of greater tuberosity of left humerus, initial enc ounter for closed fracture Category: Medical Qualifiers: Encounter type: initial encounter Fracture type: closed Fracture alignment: nondisplaced Qualified Code(s): S42.255A - Nondisplaced fracture of greater tuberosity of left humerus, initial encounter for closed fracture (7) Injury of left rotator cuff: Code(s): S46.002A - Unspecified injury of muscle(s) and tendon(s) of the rotator cuff of left shoulder, initial encounter Category: Medical Qualifiers: Encounter type: initial encounter Qualified Code(s): S46.002A - Unspecified injury of muscle(s) and tendon(s) of the rotator cuff of left shoulder, initial encounter Plan After a lengthy discussion with the patient we decided she will continue with physical therapy on bilateral knees to help with her mobility, conditioning and overall function. She will also continue to increase activities as tolerated with her left shoulder using caution with any type of lifting activities and avoiding overhead motions if this is causing pain. I did explain to her at length that with pre-existing osteoarthritis this injury that she had while at work has clearly exacerbated and brought on a new onset of symptoms that is causing her to have a lower level of functioning than she was at prior to her injury. This has caused her to significantly modify activities at home which include her daily activities such as how she showers and gets ready in the morning and even affected her driving. I strongly encouraged her to continue meeting with her PCP to see if there are any other modalities or referrals she would benefit from i.e. Rheumatology to see if there is an inflammatory component to this that would be complicating her recovery. She does express understanding and will follow up as planned. Coding Level of Care Code Tele Est Pt Level 4 (21386) Complex EM visit Add On G2211 Diagnoses Complex tear of meniscus of right knee as current injury S83.203A Osteoarthritis of right knee M17.11 Contusion of left knee S80.02XA Tear of meniscus of left knee S83.207A Osteoarthritis of left knee M17.12 Closed nondisplaced fracture of greater tuberosity of left humerus, initial encounter S42.255A Encounter type: initial encounter Fracture type: closed Fracture alignment: nondisplaced Injury of left rotator cuff, initial encounter S46.002A Encounter type: initial encounter
--- OUTSIDE RECORDS SUMMARY | 2024-11-09 15:41 | XMS_ITS | Patient Health Record ---
Author Organization [facility] Address [address] [place] [address] Care Team Providers Care Newspaper Correspondent Name Role Phone JOCE DENNY Primary Care Provider David Cool [phone] Allergies Allergen (clinical drug ingredient) Drug/Non Drug Allergy documented on EMR Reaction Allergy Type Onset Date Status Codeine Phosphate Unknown Drug Allergy Active Results Component Value Reference Range Notes Pathology Reviewed date:04/27/2024 06:59:01 PM Interpretation: Performing Lab:[facility], [address] [place] [phone] Notes/Report: Name: Haydee Christianson Age/Sex: 63/F : 1960 Unit#: [id number] Attend Dr: David Mcdowell MD Re04/21/24 Status : [facility] Location: [facility] Disch: SPEC : [id number] RECD : 04/21/24 STATUS: NATHAN UREÑA NUM: [id number] SERENA: 04/21/24 [facility] DR: David Mcdowell MD ENTERED: 04/21/24 07 SP TYPE: Surgical OTHR DR: Joce Denny [facility] ORDERED: HE Stain/6, Gross Micro L4/2, [...] pylori on A Copies To: Joce Denny [facility] Care, [address] [address] CONTINUED ON NEXT PAGE Name: Haydee Christianson Age/Sex: 63/F : 1960 Unit#: [id number] Attend Dr: David Mcdowell MD Re04/21/24 Status : [facility] Location: [facility] Disch: SPEC : [id number] RECD : 04/21/24 STATUS: SHARYNAurelia YUSUFJaneth NUM: [id number] SERENA: 04/21/24 [facility] DR: David Mcdowell MD ENTERED: 04/21/24 SP TYPE: Surgical OTHR DR: Joce Denny [facility]- ORDERED: HE Stain/6, Gross Micro L4/2, IHC, H. pylori Copies To: (Continued) David Mcdowell MD [facility] [address] [place], [place] [phone] Signed (si gnature on file) Davi Moreno [...] Status Risk Notes Problem Irritable bowel syndrome (10953889) Irritable bowel syndrome (K58.9) Active confirmed Problem Constipation (70648186) Constipation (K59.00) Active confirmed Problem Diverticular disease of colon (685410056) Diverticulosis of large intestine without perforation or abscess without bleeding (K57.30) Active confirmed Problem Oropharyngeal dysphagia (67962497) Dysphagia, oropharyngeal phase (R13.12) Active confirmed Problem Dysphagia (15976483) Dysphagia (R13.10) Active confirmed Problem 527126018 Screen for colon cancer (Z12.11) Active confirmed Problem Right lower quadrant pain (082547816) Abdominal pain, RLQ (R10.31) Active confirmed Problem Chronic gastritis (0375556) Chronic gastritis (K29.50) Active confirmed Vital Signs Temperature 97.3 degrees Fahrenheit 09/13/2024 Blood pressure diastolic 01 mm Hg 09/13/2024 Height 62 in 09/13/2024 Blood pressure systolic 001 mm Hg 09/13/2024 Weight 145 lbs 09/13/2024 BMI 26.52 kg/m2 09/13/2024 Encounters Encounter Location Date Provider Diagnosis [facility] Outpatient [address] [place] [phone] 04/21/2024 David Mcdowell Dysphagia, oropharyngeal phase R13.12 ; Hiatal hernia K44.9 and Chronic gastritis K29.50 [facility] [address] [place] [phone] 04/12/2024 David Mcdowell Dysphagia R13.10 and Irritable bowel syndrome K58.9 [facility] [address] [address] 09/13/2024 David Mcdowell Dysphagia R13.10 ; Chronic gastritis K29.50 ; Screen for colon cancer Z12.11 ; Constipation K59.00 and Irritable bowel syndrome K58.9 [facility] [address] [place] [phone] 04/05/2024 David Mcdowell [facility] [address] [place] [phone] 04/19/2024 David Mcdowell [facility] [address] [address] 04/21/2024 David Mcdowell 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 [address] [place] [address] [id number] CAYDEN CHRISTIANSON Self - patient is the insured Medical (General) History Medical History History ICD Code Colonoscopy 08-01-2003 with the finding of proctitis Denies [place],DM,CVA,renal disease,asthma Spontaneous pneumothorax Hypothyroidism Negative screening colonoscopy in 2--no polyps, no proctitis Diverticulitis in approx 201 5--describes a CT scan and outpatient antibiotics IBS with constipation Hyperlipidemia Anxiety Ovarian cysts COVID 05/2022 Screening colonoscopy in Aug was negative other than a hyperplastic polyp [address] Marie at [facility] from Rheumatology for workup of possible autoimmune disease including either Sjogren's disease or Lupus 03/2024 EGD with dilation up to a 20mm balloon--no esophagitis, no EoE, no strictures/no rings, small hiatal hernia, bx neg for H.pylori in stomach Surgical History Surgery Date(Month/Year) Right elbow ulnar nerve decompression 10/31/2023 Cholecystectomy Partial hysterectomy 2007
--- OUTSIDE RECORDS SUMMARY | 2024-11-09 15:41 | XMS_ITS ---
Author Organization [facility] Address [address] [place] [address] Care Team Providers Care Business Services Associate Name Role Phone JOCE RUTH Primary Care Provider David Cool [phone] Encounters Encounter Location Date Provider Diagnosis [facility] [address] [place] [address] 04/27/2024 David Mcdowell Plan Of Treatment No Information Progress Notes * CAYDEN NUNEZ FDOB:[birth year] (63 yo F)Acc No.[id number]:04/27/2024 Patient:?CAYDEN NUNEZ :1960???Age:63 Y???Sex:Female Address:[address] [place] [address] * true * Date:? Generated for Lisa elias/Timmy/eTransmitting on:?11/09/2024 03:41 PM EDT
--- OUTSIDE RECORDS SUMMARY | 2024-11-09 15:41 | XMS_ITS ---
Author Organization [facility] Address [address] [place] [address] Care Team Providers Care Boring Machine Operator Horizontal Name Role Phone JOCE RUTH Primary Care Provider David Cool [phone] Allergies Allergen (clinical drug ingredient) Drug/Non Drug [...] 09/13/2024 Encounters Encounter Location Date Provider Diagnosis [facility] [address] [place] [address] 09/13/2024 David Mcdowell Dysphagia R13.10 ; Chronic [...] * CAYDEN NUNEZ FDOB:[birth year] (63 yo F)Acc No.[id number]:09/13/2024 Progress Notes Patient:?CAYDEN NUNEZ Provider:?David Mcdowell MD :1960???Age:63 Y???Sex:Female D ate:09/13/2024 [facility] Pcp:JOCE RUTH Subjective: * Chief Complaints: * [...] 1, Interpretation: Negative.?Miscellaneous:?Marital status: . 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 ???Nonsmoker; no alcohol. * Medications:?TakingGabapenti n 100 [...] Procedure Codes:?3017F COLOR ECTAL CA SCREEN DOC [id number] TOBACCO NON-DSVXZ0599 BP SCR NOT PRFRM REC REASON NOS * Preventive Medicine:? ??Counseling:?Care goal follow-up plan:?Above Normal BMI Follow-up?Dietary management education, guidance, and counseling,?BMI management provided?Yes.? * Follow Up:?prn * * Sign off status: Completed true * Provider:?David Mcdowell MD Date:? 025 Generated for Lisa elias/Timmy/eTransmitting on:?11/09/2024 03:41 PM EDT History and Physical Notes * [...]
--- OUTSIDE RECORDS SUMMARY | 2024-11-09 15:41 | XMS_ITS ---
Author Organization [facility] Address [address] [place] [address] Care Team Providers Care Police Pilot Name Role Phone JOCE RUTH Primary Care Provider David Cool [phone] REASON FOR VISIT Omeprazole 20mg Rx Medications Medication SIG (Take, Route, Fr equency, Duration) Notes Start Date End Date Status Omeprazole 20 MG 1 Orally Once a day every morning for 30 day(s) 04/21/2024 Active Encounters Encounter Location Date Provider Diagnosis [facility] [address] [place] [phone] 04/21/2024 David Mcdowell Plan Of Treatment Medication Medication Name Sig Start Date Stop Date Notes Omeprazole 20 MG 1 Orally Once a day every morning for 30 day(s) 04/21/2024 Progress Notes * EMIRGABRIELE BOJORQUEZHLEEN FDOB:[birth year] (63 yo F)Acc No.[id number]:04/21/2024 Patient:?CAYDEN NUNEZ :1960???Age:63 Y???Sex:Female Address:[place] [address] * Refills? Start Omeprazole Capsule Delayed Release, 20 MG, Orally, 30, 1, Once a day every morning, 30 day(s), Refills=6 * true * Date:? Generated for Lisa elias/Timmy/eTransmitting on:?11/09/2024 03:40 PM EDT
== END 2024-11-09 15:50 | disposition home or self-care (01) ==
LOC: HO.HOS 14:58
PROVIDERS: PCP Nurse Practitioner Family; Visit Provider Physician Assistant
DX: S83.203A Other tear of unspecified meniscus, current injury, right knee, initial encounter (principal); M17.0 Bilateral primary osteoarthritis of knee; S80.02XA Contusion of left knee, initial encounter; S83.207A Unspecified tear of unspecified meniscus, current injury, left knee, initial encounter; S42.255A Nondisplaced fracture of greater tuberosity of left humerus, initial encounter for closed fracture; S46.002A Unspecified injury of muscle(s) and tendon(s) of the rotator cuff of left shoulder, initial encounter
CPT/HCPCS: 99214; G2211

== ENCOUNTER → 2024-11-09 14:58 | Outpatient (BNVA) | payer OTHER, SELFPAY | PROVIDERS: PCP Nurse Practitioner Family; Visit Provider Physician Assistant ==

== ENCOUNTER 2024-11-28 13:42 | Outpatient (AMB) | payer OTHER, SELFPAY ==
--- NOTE | 2024-11-28 13:45 | MHC.PC.OV ---
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 History of Present Illness The patient is a 64-year-old female presenting for follow-up care of a work-related injury. 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 The initial trauma involved her left shoulder, resulting in a comminuted non-displaced fracture of the greater tuberosity of the humerus, alongside supraspinatus tendon involvement (left upper extrem pulled back from gabbing something stationary while falling) (PLEASE SEE MRI). Consequently, she has had physical therapy but continues to experience shoulder pain and restricted motion. Her knees also suffered significant trauma. The right knee MRI indicated a meniscal tear and moderate tricompartmental osteoarthrosis. Similarly, the left knee MRI showed degenerative changes and a meniscus tear. These injuries continue to cause substantial pain and functional impairment. She additionally experiences chronic migraine exacerbations (? concussion component) and worsening irritable bowel syndrome, which she attributes to heightened stress and discomfort from her injuries. Sleep disturbances due to pain have further compounded her symptoms and contributed to a depressive state. Social History - Employment: Currently out of work due to workplace injury and related disability. - Family status: Unspecified. - Functional status: Compromised due to knee and shoulder injuries. - Sleep: Disturbed by pain and discomfort. - Mood: Depressed likely secondary to pain and stress from chronic injury. Health Maintenance Review of Systems - Musculoskeletal: Reports left shoulder pain with decreased range of motion; reports bilateral knee pain with associated swelling. - Neurological: Reports loss of consciousness at injury, migraine headaches. - Gastrointestinal: Reports exacerbation of irritable bowel syndrome. - Psychiatric: Reports depressive symptoms; sleep disturbances noted. denies any si or hi - General: Denies fever; reports sleep difficulties. Physical Exam General: Cooperative, teary eyed. Pt is clearly upset and frustrated Orientation: Patient oriented x3 Limitations: Limited range of motion in the left shoulder due to significant pain. limited weight bearing due to pain to bilat knees Head: Normal to inspection Ears: Hearing grossly normal bilaterally Nose: Normal external nose present Face and sinus: Normal facial exam Eyes:both eyes and all related structures Neck: Normal visual inspection and Yes full ROM Respiratory: Normal respiratory effort and able to speak in complete sentences. Clear to auscultation bilaterally Cardiovascular: Regular rate and rhythm. Normal S1 and S2 GI: Normal to inspection. Soft to palpation and nontender Skin: No rashes or lesions noted Neuro: Patient oriented x3 Extremities: Normal to inspection. + mcmurrays to right and left, neg lachmans. Extensive crepitus noted with extension and flexion. pain noted during extension and flexion, weight bearing exacerbates pain Results - Imaging: MRI of left shoulder revealed comminuted non-displaced fracture of the greater tuberosity and undersurface supraspinatus tendon tear. MRI of right knee indicated tear of the lateral meniscus, tricompartmental osteoarthrosis, and signs of chondromalacia and bursitis. Left knee MRI demonstrated moderate osteoarthritis and a meniscal tear. Plan A referral will be made to [facility] for further evaluation and treatment of her significant musculoskeletal injuries. We will maintain her current regimen of physical therapy to aid her left shoulder recovery and monitor the knee conditions closely. The heightened frequency of migraines and IBS symptoms post-injury requires attention, as does managing her depressive symptoms with potential mental health support or interventions (denies any si or hi). Her case underscores the importance of progression monitoring and possibly needing multidisciplinary care team. Discussion Notes I have discussed the implication of her shoulder and knee injuries, including the necessity for orthopedic evaluation at a specialized center, [facility]. The nature of her injuries and MRI results indicate possible surgical needs which require expert assessment. We discussed the anatomical aspects of her multiple injuries, expected recovery timeline, and potential impacts on her daily life. Additionally, I have explained the link between her loss of consciousness and increased migraine frequency, suggesting further neurological consultation may be warranted. Follow-ups have been arranged to evaluate progress and adjust the care plan as needed, referring to [facility] as requested Patient Instructions - Schedule appointment with [facility] as referred. - Continue with physical therapy as instructed to improve shoulder range of motion and knee function. - Monitor pain levels and symptoms; seek immediate attention if they worsen. - Follow up if experiencing increased migraine frequency or if sleep disturbances persist. - Contact healthcare provider if experiencing any difficulties with depressive symptoms. - Attend follow-up appointments to monitor progress and adapt treatment plans. -will have our team contact pt to see if she needs further psych services. 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 Mother Breast cancer Hypothyroidism High cholesterol Diabetes mellitus HTN (hypertension) Daughter Ankylosing spondylitis Fibromyalgia Maternal Grandmother CVD (cardiovascular disease) Maternal Grandfather Lung cancer Paternal Grandfather Unknown family medical history Paternal Grandmother Unknown family medical history Maternal Aunt Melanoma Brother Melanoma Social History Housing: House Are you a primary health care specialist to a significant other at home: No Do you presently have visiting nurse or other home services: No Alcohol intake: current Alcohol intake frequency: holidays/special occasions only Comment: counts correct Patient Tobacco Use Status: Former Tobacco user Years Smoked: quit 35 years ago e-Cigarette/Vaping Use: Never Used Second Hand Smoke Exposure: No service: No Current occupational status: employed Current occupation: [employer] [place] Current occupational exposures/hazards: No Sexual orientation: Straight/Heterosexual Gender identity: Female Cognitive needs: No Hearing needs: No Vision needs: No Questionnaire PHQ-9 Over the last 2 weeks, how often have you been bothered by any of the following problems? 1. Little interest or pleasure in doing things: more than half the days 2. Feeling down, depressed, or hopeless: several days 3. Trouble falling or staying asleep, or sleeping too much: several days 4. Feeling tired or having little energy: several days 5. Poor appetite or overeating: several days 6. Feeling bad about yourself - or that you are a failure or have let yourself or your family down: several days 7. Trouble concentrating on things, such as reading the newspaper or watching television: several days 8. Moving or speaking so slowly that other people could have noticed. Or the opposite - being so fidgety or restless that you have been moving around a lot more than usual: more than half the days 9. Thoughts that you would be better off or of hurting yourself in some way: not at all Total score: 10 Depression Screening Interpretation: Positive (denies any si or hi, will have bh reach out to pt) Depression Screening Follow-up: Existing condition Depression Screening Done: Yes 75468 - PHQ-9 Billing: Yes Source: Developed by Drs. David Eldridge, Lindy Blunt, Efra Villalba and colleagues, with an educational pat from [employer]. Thrive Questionnaire Date Thrive assessed: 11/28/24 I am a: Patient What is your living situation today?: I have a steady place to live Within the past 12 months, did the food you bought not last and you didn't have the money to get more?: Never true Within the past 12 months, did you worry whether your food would run out before you got money to buy more?: Never true Do you have trouble paying for medicines?: No Do you have trouble getting transportation to medical appointments?: No Do you have trouble paying your heating and electricity bill?: No Do you have trouble taking care of your child, family member or friend?: No Do you have trouble with day-to-day activities such as bathing, preparing meals, shopping, managing finances, etc.?: I choose not to answer this question Are you currently unemployed and looking for a job?: No Are you interested in more education?: No Please select the resources that you would like help with: None Currently or been in a relationship where the following occur: No concerns reported THRIVE Score: 0 ELROY-7 AMB Questionnaire ELROY-7 Date ELROY - 7 assessed: 09/26/24 Source: Developed by Drs. David Eldridge, Lindy Blunt, Efra Villalba and colleagues, with an educational pat from [employer]. Physical exam (Primary Care) Vital Signs: Last Vital Signs Pulse 79 11/28/24 13:46 BP 112/80 11/28/24 13:46 Pulse Ox 97 11/28/24 13:46 Oxygen Delivery Method Room Air 11/28/24 13:46 BMI result Body Mass Index 25.2 Tobacco/Smoking Status: Tobacco use Status Tobacco use date assessed 09/26/24 11/28/24 13:47 Patient Tobacco Use Status Former Tobacco user 11/28/24 13:47 e-Cigarette/Vaping Use Never Used 11/28/24 13:47 PHQ-9: PHQ-9 Score PHQ-9: Total score 10 11/28/24 14:58 Depression Screening Interpretation: Positive (denies any si or hi, will have bh reach out to pt) Depression Screening Follow-up: Existing condition Thrive Assessment: Date of Thrive Assessment Date Thrive assessed 11/28/24 11/28/24 13:47 Currently or been in a relationship where the following occur: No concerns reported Coding Level of Care Code Est Pt Level 4 (39774) Diagnoses Complex tear of meniscus of right knee as current injury S83.A Tear of meniscus of left knee S83.A Injury of left rotator cuff, initial encounter S46.002A Encounter type: initial encounter Closed nondisplaced fracture of greater tuberosity of left humerus, initial encounter S42.255A Encounter type: initial encounter Fracture alignment: nondisplaced Fracture type: closed LOC (loss of consciousness) R40.20 Fall W19.XXXA Additional Codes PHQ-9 - 02727 - PHQ-9 Billing: Yes ([id number]) Assessment & Plan Assessment & Plan (1) Complex tear of meniscus of right knee as current injury: Code(s): S83.203A - Other tear of unspecified meniscus, current injury, right knee, initial encounter Category: Medical (2) Tear of meniscus of left knee: Code(s): S83.207A - Unspecified tear of unspecified meniscus, current injury, left knee, initial encounter Category: Medical (3) Injury of left rotator cuff: Code(s): S46.002A - Unspecified injury of muscle(s) and tendon(s) of the rotator cuff of left shoulder, initial encounter Category: Medical Qualifiers: Encounter type: initial encounter Qualified Code(s): S46.002A - Unspecified injury of muscle(s) and tendon(s) of the rotator cuff of left shoulder, initial encounter (4) Fracture of greater tuberosity of left humerus: Code(s): S42.252A - Displaced fracture of greater tuberosity of left humerus, initial encounter for closed fracture Category: Medical Qualifiers: Encounter type: initial encounter Fracture alignment: nondisplaced Fracture type: closed Qualified Code(s): S42.255A - Nondisplaced fracture of greater tuberosity of left humerus, initial encounter for closed fracture (5) LOC (loss of consciousness): Code(s): R40.20 - Unspecified coma Category: Medical (6) Fall: Code(s): W19.XXXA - Unspecified fall, initial encounter Category: Medical Plan . Orders: Referrals Orthopedics Referral S42.255A - Nondisplaced fracture of greater tuberosity of left humerus, initial encounter for closed fracture, S83.203A - Other tear of unspecified meniscus, current injury, right knee, initial encounter, S83.207A - Unspecified tear of unspecified meniscus, current injury, left knee, initial encounter
[2024-11-28 13:46] VITALS: BP 112/80; PULSE 79; O2SAT 97; BMI 25.2
--- OUTSIDE RECORDS SUMMARY | 2024-11-28 15:24 | XMS_ITS ---
Author Organization [facility] Address [address] [place] [address] Care Team Providers Care Meat Pickler Name Role Phone JOCE RUTH Primary Care Provider David Cool [phone] REASON FOR VISIT Omeprazole 20mg Rx Medications Medication SIG (Take, Route, Fr equency, Duration) Notes Start Date End Date Status Omeprazole 20 MG 1 Orally Once a day every morning for 30 day(s) 04/21/2024 Active Encounters Encounter Location Date Provider Diagnosis [facility] [address] [place] [id number] 04/21/2024 David Mcdowell Plan Of Treatment Medication Medication Name Sig Start Date Stop Date Notes Omeprazole 20 MG 1 Orally Once a day every morning for 30 day(s) 04/21/2024 Progress Notes * EMIRGABRIELE BOJORQUEZHLEEN FDOB:[birth year] (63 yo F)Acc No.[id number]:04/21/2024 Patient:?CAYDEN NUNEZ :1960???Age:63 Y???Sex:Female Address:[place] [address] * Refills? Start Omeprazole Capsule Delayed Release, 20 MG, Orally, 30, 1, Once a day every morning, 30 day(s), Refills=6 * true * Date:? Generated for Lisa elias/Timmy/eTransmitting on:?11/28/2024 03:23 PM EDT
== END 2024-11-28 14:48 | disposition home or self-care (01) ==
PROVIDERS: PCP Nurse Practitioner Family; Visit Provider Nurse Practitioner Family
DX: S83.203A Other tear of unspecified meniscus, current injury, right knee, initial encounter (principal); R40.20 Unspecified coma; Z04.2 Encounter for examination and observation following work accident; S83.207A Unspecified tear of unspecified meniscus, current injury, left knee, initial encounter; S46.002A Unspecified injury of muscle(s) and tendon(s) of the rotator cuff of left shoulder, initial encounter; S42.255A Nondisplaced fracture of greater tuberosity of left humerus, initial encounter for closed fracture; W19.XXXA Unspecified fall, initial encounter

== ENCOUNTER → 2024-11-28 13:42 | Outpatient (BNVA) | payer OTHER, SELFPAY | PROVIDERS: PCP Nurse Practitioner Family; Visit Provider Nurse Practitioner Family | DX: S83.203A Other tear of unspecified meniscus, current injury, right knee, initial encounter (principal); S83.207A Unspecified tear of unspecified meniscus, current injury, left knee, initial encounter; S46.002A Unspecified injury of muscle(s) and tendon(s) of the rotator cuff of left shoulder, initial encounter; S42.255A Nondisplaced fracture of greater tuberosity of left humerus, initial encounter for closed fracture; R51.9 Headache, unspecified; K58.9 Irritable bowel syndrome, unspecified; W19.XXXA Unspecified fall, initial encounter; Y93.9 Activity, unspecified; Y92.9 Unspecified place or not applicable; Y99.9 Unspecified external cause status | CPT/HCPCS: 96127; 99212 ==

== ENCOUNTER 2025-01-16 13:05 | Outpatient (AMB) | payer OTHER, SELFPAY ==
[2025-01-16 13:12] VITALS: BP 134/86; PULSE 99; TEMP 36.7; O2SAT 100; BMI 25.7
--- NOTE | 2025-01-16 13:12 | MHC.OFFWIV ---
Intake Vital Signs 01/16/25 13:12 Height 5 ft 4 in Weight 150 lb BMI 25.7 BP 134/86 Blood Pressure Location Rt brachial Position Sitting Pulse 99 Pulse Source Pulse Oximeter Temp 98.0 F Temp Source Oral Pulse Oximetry (%) 100 Oxygen Delivery Method Room Air Intake Visit Reasons: EP ? shingles Intake Note: presents with painful, itchy, burning rash to left buttock, also c/o fatigue and feeling run down Patient Tobacco Use Status: Former Tobacco user Allergies No Known Allergies Allergy (Mild, Verified 01/16/25 13:23) NKA Medication List - Last Reconciled 01/16/25 by Celena Veloz, NEUROSURGICAL NURSE-BC alprazolam 1 mg PO TID PRN atorvastatin 20 mg PO DAILY 90 days azelaic acid 15% 1 appl topical BID escitalopram oxalate 20 mg PO DAILY hydroxychloroquine 200 mg PO DAILY levothyroxine 112 mcg PO QAM lidocaine 5% 1 patch topical DAILY nortriptyline 10 mg PO BEDTIME omeprazole 20 mg PO DAILY Do you need a note to return to daycare/school/sports/work: No HPI HPI Comments History of Present Illness Details History of Present Illness - The patient is a 64-year-old female presenting with shingles outbreak. Sx started a few days ago. Had left over gabapentin and has been taking to help w pain with + relief. She did get 1 shingles shot 2 months ago. - Chronic pain from fall in March leading to limited mobility and increased stress - Diagnosed rotator cuff tear with ongoing shoulder pain and limited relief from physical therapy - Shingles outbreak on L buttocks with enhanced pain, suspected trigger from stress - Knee osteoarthritis resulting in cortisone injections and physical therapy with minimal improvement - Experiencing depression and anxiety, managed by medications including lexapro and Xanax, however having uncontrolled sx. Active w/ counselor - Previous attempts to manage conditions with physical therapy and medications, facing life challenges from work-related injury Review of Systems - General: Reports stress and financial impacts; denies suicidal intent - HEENT: No specific reports of issues - Integumentary: Reports shingles outbreak - Musculoskeletal: Reports ongoing shoulder and knee pain, limited mobility - Neurological: Reports numbness and tingling, drop items frequently - Psychiatric: Reports anxiety, depression; denies suicidal intent - Cardiovascular: Reports hypertension, managed with medication - Gastrointestinal: Reports irritable bowel syndrome, bloating and discomfort Physical Exam Awake alert NAD Speaking in full sentences tearful when talking about stressors L buttocks - see below; erythematous patch with white blisters very similar to her last outbreak (which was her first) Discussion Notes During our discussion, I explained the implications of the patient's recurrent shingles outbreak. We reviewed her current medications, including lexapro 20mg and Xanax for anxiety and depression. I discussed increasing the lexapro dosage to help with managing anxiety, and prescribed acyclovir for the management of the shingles outbreak. We also discussed the pulse therapy approach for future shingles outbreaks . We covered strategies to manage and reduce stressors which may exacerbate her condition, including potential lifestyle modifications and ongoing therapy sessions. The patient was advised on the importance of maintaining her emotional and mental well-being, particularly given her reports of heightened anxiety and depression. Assessment and Plan 1. Shingles - Acyclovir treatment initiated 800 mg TID x 7 days then as needed - Prescribed pulse therapy for outbreak prevention. - Gabapentin 100mg TID prn pain 2. Depression and Anxiety - Increase lexapro from 20mg QD to 30mg QD - heads up sent to PCP . Next visit 03/13/25 - Continue Xanax - Continue therapy sessions. Patient Instructions - Take acyclovir as prescribed for shingles outbreak. - Continue prescribed medications and inform physician about any side effects. - Attend scheduled therapy sessions to manage anxiety and depression. - Limit stressors where possible and engage in low-impact physical activities. - Report any new or worsening symptoms to healthcare provider promptly. Consent Patient was informed and verbally consented to the use of an ambient scribe for clinic note documentation during this visit. Total time spent caring for the patient today was 40 minutes. This includes time spent before the visit reviewing the chart, time spent during the visit, and time spent after the visit on documentation, reviewing laboratory results, diagnostic imaging, medications, performing a medically necessary evaluation, counseling on diagnoses, care coordination, ordering appropriate tests, ordering appropriate medications, review of tests performed by other providers, reporting test results with the patient, communication with other healthcare providers. 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 Mother Breast cancer Hypothyroidism High cholesterol Diabetes mellitus HTN (hypertension) Daughter Ankylosing spondylitis Fibromyalgia Maternal Grandmother CVD (cardiovascular disease) Maternal Grandfather Lung cancer Paternal Grandfather Unknown family medical history Paternal Grandmother Unknown family medical history Maternal Aunt Melanoma Brother Melanoma Social History Housing: House Are you a primary resident care spec to a significant other at home: No Do you presently have visiting nurse or other home services: No Alcohol intake: current Alcohol intake frequency: holidays/special occasions only Comment: counts correct Patient Tobacco Use Status: Former Tobacco user Years Smoked: quit 35 years ago e-Cigarette/Vaping Use: Never Used Second Hand Smoke Exposure: No service: No Current occupational status: employed Current occupation: [employer] [place] Current occupational exposures/hazards: No Sexual orientation: Straight/Heterosexual Gender identity: Female Cognitive needs: No Hearing needs: No Vision needs: No Physical Exam Exam Exam: Vital Signs: Last Vital Signs Temp 98.0 F 01/16/25 13:12 Pulse 99 01/16/25 13:12 BP 134/86 01/16/25 13:12 Pulse Ox 100 01/16/25 13:12 Oxygen Delivery Method Room Air 01/16/25 13:12 BMI result Body Mass Index 25.7 Assessment & Plan Assessment & Plan (1) Shingles: Code(s): B02.9 - Zoster without complications Qualifiers: Herpes zoster complications: without complications Qualified Code(s): B02.9 - Zoster without complications (2) Anxiety and depression: Code(s): F41.9 - Anxiety disorder, unspecified; F32.A - Depression, unspecified Plan . Medications: New escitalopram oxalate 10 mg PO DAILY 90 tabs 1RF Changed From gabapentin 100 mg PO TID 21 caps 0RF 7 days To gabapentin 100 mg PO TID 30 caps 0RF 10 days Refilled acyclovir 800 mg PO TID 30 tabs 2RF Coding Level of Care Code Est Pt Level 5 (03054) Diagnoses Herpes zoster without complication B02.9 Herpes zoster complications: without complications Anxiety and depression F41.9; F32.A
--- OUTSIDE RECORDS SUMMARY | 2025-01-16 14:08 | XMS_ITS | Patient Health Record ---
Author Organization [facility] Address [address] [place] [address] Care Team Providers Care Clinical Dermatologist Name Role Phone Jacky Nina MD Primary Care Provider Will Isabel Unavailable [phone] Allergies Allergen (clinical drug ingredient) Drug/Non Drug Allergy documented on EMR Reaction Allergy Type Onset Date Status seasonal allergies Unknown Drug Allergy Active Reason For Referral No Information Medications Medication SIG (Take, Route, Fr equency, Duration) Notes Start Date End Date Status Synthroid Once a day Active Cephalexin 500 MG 1 tablet Orally Twic e a day; Duration: 10 day(s) Active Work Note-Appointment . . . Pt had a [facility] appointment today; Duration: . 04/10/2016 Active Social History Tobacco use other than smoking: Question Answer Notes Are you an other tobacco user? No Problems Problem Type SNOMED Code ICD Code Onset Dates Problem Status W/U Status Risk Notes Problem Abscess of toe, left (L02.612) Active confirmed Plan Of Treatment Pending Test Test Name Order Date 68732 I&D ABSCESS- SIMPLE,SINGLE 016 Insurance Providers Payer Name Payer Address Payer Phone Subscriber Number Group Number Insured Name Patient Relationship to Insured Coverage Start Date Coverage End Date [facility] [address] [facility] [id number] Mackenzie Lester Self - patient is the insured Medical (General) History Medical History History ICD Code Gall bladder problems chronic sinusitis Thyroid disorder Measles Chicken pox Surgical History Surgery Date(Month/Year) gall bladder 08/2015 hysterectomy 08/2009
--- OUTSIDE RECORDS SUMMARY | 2025-01-16 14:09 | XMS_ITS | Patient Health Record ---
Author Organization [facility] Address [address] [place] [address] Care Team Providers Care Word Processing Operator Name Role Phone JOCE RUTH Primary Care Provider David Cool Unavailable [phone] Allergies Allergen (clinical drug ingredient) Drug/Non Drug Allergy documented on EMR Reaction Allergy Type Onset Date Status Codeine Phosphate Unknown Drug Allergy Active Results Component Value Reference Range Notes Pathology Reviewed date:04/27/2024 06:59:01 PM Interpretation: Performing Lab:[facility], [address] [place] [phone] Notes/Report: Reason For Referral No Information Medications Medication SIG (Take, Route, Frequency, Duration) Notes Start Date End Date Status Nortriptyline HCl 10 MG Orally Active Omeprazole 20 MG 1 capsule Orally Onc e a day every morning for 30 days Active Escitalopram Oxalate Active Ibuprofen PRN Active Hyoscyamine Sulfate ER 0.375 MG 1/2 to 1 tablet Orally Q 10-12 hours abdominal cramps and discomfort for 90 days Active Gabapentin 100 MG 1 capsule at bedtime Orally Once a day Active Benefiber Active Hyoscyamine Sulfate 0.125 MG [...] Status Risk Notes Problem Irritable bowel syndrome (32218346) Irritable bowel syndrome (K58.9) Active confirmed Problem Constipation (07505215) Constipation (K59.00) Active confirmed Problem Diverticular disease of colon (089988387) Diverticulosis of large intestine without perforation or abscess without bleeding (K57.30) Active confirmed Problem Oropharyngeal dysphagia (18006175) Dysphagia, oropharyngeal phase (R13.12) Active confirmed Problem Dysphagia (11184679) Dysphagia (R13.10) Active confirmed Problem 108720055 Screen for colon cancer (Z12.11) Active confirmed Problem Right lower quadrant pain (116288091) Abdominal pain, RLQ (R10.31) Active confirmed Problem Chronic gastritis (2100091) Chronic gastritis (K29.50) Active confirmed Vital Signs Temperature 97.3 degrees Fahrenheit 09/13/2024 Blood pressure diastolic 01 mm Hg 09/13/2024 Height 62 in 09/13/2024 Blood pressure systolic 001 mm Hg 09/13/2024 Weight 145 lbs 09/13/2024 BMI 26.52 kg/m2 09/13/2024 Encounters Encounter Location Date Provider Diagnosis [facility] [address] [place] [id number] 04/21/2024 David Mcdowell Dysphagia, oropharyngeal phase R13.12 ; Hiatal hernia K44.9 and Chronic gastritis K29.50 [facility] [address] [place] [phone] 04/12/2024 David Mcdowell Dysphagia R13.10 and Irritable bowel syndrome K58.9 [facility] [address] [place] [phone] 09/13/2024 David Mcdowell Dysphagia R13.10 ; Chronic gastritis K29.50 ; Screen for colon cancer Z12.11 ; Constipation K59.00 and Irritable bowel syndrome K58.9 [facility] [address] [place] [phone] 04/05/2024 David Mcdowell [facility] [address] [place] [phone] 04/19/2024 David Mcdowell [facility] [address] [place] [phone] 04/21/2024 David Mcdowell [facility] [address] [place] [phone] 04/27/2024 David Mcdowell Assessments Encounter Date Diagnosis [...] Coverage Start Date Coverage End Date [employer] [address] [address] [place] [address] [id number] 3 CAYDEN NUNEZ Self - patient is the insured Medical [...] [address] Marie at [facility] from Rheumatology for workup of possible autoimmune disease including either Sjogren's disease or Lupus 03/2024 EGD with dilation up to a 20mm balloon--no esophagitis, no EoE, no strictures/no rings, small hiatal hernia, bx neg for H.pylori in stomach Surgical History Surgery Date(Month/Year) Right elbow ulnar nerve decompression 10/31/2023 Cholecystectomy Partial hysterectomy 2007
== END 2025-01-16 15:23 | disposition home or self-care (01) ==
PROVIDERS: PCP Nurse Practitioner Family; Visit Provider Nurse Practitioner Family
DX: B02.9 Zoster without complications (principal); F41.9 Anxiety disorder, unspecified; F32.A Depression, unspecified

== ENCOUNTER 2025-02-08 06:59 | Outpatient (AMB) | payer OTHER, SELFPAY ==
--- OUTSIDE RECORDS SUMMARY | 2025-02-08 07:02 | XMS_ITS | Patient Health Record ---
Author Organization [facility] Address [address] [place] [address] Care Team Providers Care Language Tutor Name Role Phone JOCE RUTH Primary Care Provider David Cool Unavailable [phone] Allergies Allergen (clinical drug ingredient) Drug/Non Drug Allergy documented on EMR Reaction Allergy Type Onset Date Status Codeine Phosphate Unknown Drug Allergy Active Results Component Value Reference Range Notes Pathology Reviewed date:04/27/2024 06:59:01 PM Interpretation: Performing Lab:[facility], [address] [place] [phone] Notes/Report: Reason For Referral No Information Medications [...] Status Risk Notes Problem Irritable bowel syndrome (41257950) Irritable bowel syndrome (K58.9) Active confirmed Problem Constipation (38775742) Constipation (K59.00) Active confirmed Problem Diverticular disease of colon (070058959) Diverticulosis of large intestine without perforation or abscess without bleeding (K57.30) Active confirmed Problem Oropharyngeal dysphagia (02165226) Dysphagia, oropharyngeal phase (R13.12) Active confirmed Problem Dysphagia (64752233) Dysphagia (R13.10) Active confirmed Problem 744587167 Screen for colon cancer (Z12.11) Active confirmed Problem Right lower quadrant pain (424384407) Abdominal pain, RLQ (R10.31) Active confirmed Problem Chronic gastritis (4869921) Chronic gastritis (K29.50) Active confirmed Vital Signs Temperature 97.3 degrees Fahrenheit 09/13/2024 Blood pressure diastolic 01 mm Hg 09/13/2024 Height 62 in 09/13/2024 Blood pressure systolic 001 mm Hg 09/13/2024 Weight 145 lbs 09/13/2024 BMI 26.52 kg/m2 09/13/2024 Encounters Encounter Location Date Provider Diagnosis [facility] [address] [place] [id number] 04/21/2024 David Mcdowell Dysphagia, oropharyngeal phase R13.12 ; Hiatal hernia K44.9 and Chronic gastritis K29.50 [facility] [address] [place] [id number] 04/12/2024 David Mcdowell Dysphagia R13.10 and Irritable bowel syndrome K58.9 [facility] [address] [place] [phone] 09/13/2024 David Mcdowell Dysphagia R13.10 ; Chronic gastritis K29.50 ; Screen for colon cancer Z12.11 ; Constipation K59.00 and Irritable bowel syndrome K58.9 [facility] [address] [place] [phone] 04/05/2024 David Mcdowell [facility] [address] [place] [phone] 04/19/2024 David Mcdowell [facility] [address] [place] [phone] 04/21/2024 David Mcdowell [facility] [address] [place] [phone] 04/27/2024 David Mcdowell Assessments Encounter Date Diagnosis [...] Coverage Start Date Coverage End Date [employer] [address] [address] [place] [address] [id number] 3 CAYDEN NUNEZ Self - patient is the insured Medical (General) History Medical History History ICD Code Colonoscopy 08-01-2003 with the finding of proctitis Denies [place],DM,CVA,renal disease,asthma Spontaneous pneumothorax Hypothyroidism Negative screening colonoscopy in 2--no polyps, no proctitis Diverticulitis in approx 201 5--describes a CT scan and outpatient antibiotics IBS with constipation Hyperlipidemia Anxiety Ovarian cysts COVID 05/2022 Screening colonoscopy in Aug was negative other than a hyperplastic polyp [address] Marie at [facility] from Rheumatology for workup of possible autoimmune disease including either Sjogren's disease or Lupus 03/2024 EGD with dilation up to a 20mm balloon--no esophagitis, no EoE, no strictures/no rings, small hiatal hernia, bx neg for H.pylori in stomach Surgical History Surgery Date(Month/Year) Right elbow ulnar nerve decompression 10/31/2023 Cholecystectomy Partial hysterectomy 2007
--- NOTE | 2025-02-08 07:47 | MHC.PC.OV ---
Intake Visit Reasons: discussion with pcp Allergies No Known Allergies Allergy (Mild, Verified 01/16/25 13:23) NKA Tobacco use date assessed: 09/26/24 Dental Screening Dental Screen Date: 09/26/24 HPI discussion with pcp HPI Details History of Present Illness The patient is a 64-year-old female presenting with a follow-up for a workman's compensation injury. 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 She sustained a fracture of the left shoulder and a meniscal tear in the right knee, confirmed by MRI, which also showed moderate osteoarthrosis. Left knee meniscal tear also seen on imaging. The patient reports significant pain and swelling, particularly in the right knee, exacerbated by weight-bearing activities. She has not attended physical therapy recently due to her therapist's and her current condition of shingles. Additionally, the patient is experiencing depressive symptoms, which are believed to be related to her ongoing medical issues and inability to work. She has been advised not to return to work at this time, especially due the significant pain she reports Review of Systems - Musculoskeletal: Reports significant pain and swelling in the right knee, exacerbated by weight-bearing activities. - Neurological: Reports depressive symptoms related to ongoing medical issues and inability to work. - Integumentary: Reports current condition of shingles. Plan The patient will continue to be monitored for her work-related injuries, including the meniscal tears and osteoarthrosis, with a focus on pain management and ortho follow ups. She is advised to refrain from work activities as it may hinder her recovery process at this current time. Further orthopedic evaluation is planned to assess the progression of her injuries and to determine any additional interventions that may be necessary. The patient is also experiencing depressive symptoms, likely related to her current health status and inability to work, which will be addressed as part of her comprehensive care plan. Efforts will be made to obtain the complete [facility] report to better understand her current restrictions and to guide future management decisions, according to the [facility] MD. Discussion Notes I discussed with the patient the importance of managing her pain and avoiding activities that may exacerbate her injuries. We also talked about the need for further orthopedic evaluation to determine the best course of action for her recovery. I will follow up on obtaining the complete [facility] report to ensure all necessary information is available for her care plan. Patient Instructions - Avoid activities that cause pain or swelling in the knee. - Follow up with regulatory submissions specialist as scheduled. - Report any worsening of symptoms or new concerns to the healthcare provider. 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 Mother Breast cancer Hypothyroidism High cholesterol Diabetes mellitus HTN (hypertension) Daughter Ankylosing spondylitis Fibromyalgia Maternal Grandmother CVD (cardiovascular disease) Maternal Grandfather Lung cancer Paternal Grandfather Unknown family medical history Paternal Grandmother Unknown family medical history Maternal Aunt Melanoma Brother Melanoma Social History Housing: House Are you a primary home child care provider to a significant other at home: No Do you presently have visiting nurse or other home services: No Alcohol intake: current Alcohol intake frequency: holidays/special occasions only Comment: counts correct Patient Tobacco Use Status: Former Tobacco user Years Smoked: quit 35 years ago e-Cigarette/Vaping Use: Never Used Second Hand Smoke Exposure: No service: No Current occupational status: employed Current occupation: [employer] Current occupational exposures/hazards: No Sexual orientation: Straight/Heterosexual Gender identity: Female Cognitive needs: No Hearing needs: No Vision needs: No Questionnaire Thrive Questionnaire Date Thrive assessed: 09/19/24 I am a: Patient What is your living situation today?: I have a steady place to live Within the past 12 months, did the food you bought not last and you didn't have the money to get more?: Never true Within the past 12 months, did you worry whether your food would run out before you got money to buy more?: Never true Do you have trouble paying for medicines?: No Do you have trouble getting transportation to medical appointments?: No Do you have trouble paying your heating and electricity bill?: No Do you have trouble taking care of your child, family member or friend?: No Do you have trouble with day-to-day activities such as bathing, preparing meals, shopping, managing finances, etc.?: I choose not to answer this question Are you currently unemployed and looking for a job?: No Are you interested in more education?: No Please select the resources that you would like help with: None Currently or been in a relationship where the following occur: No concerns reported THRIVE Score: 0 ELROY-7 AMB Questionnaire ELROY-7 Date ELROY - 7 assessed: 09/26/24 Source: Developed by Drs. David Eldridge, Lindy Blunt, Efra Villalba and colleagues, with an educational pat from [employer]. Physical exam (Primary Care) Tobacco/Smoking Status: Tobacco use Status Tobacco use date assessed 09/26/24 11/28/24 13:47 Patient Tobacco Use Status Former Tobacco user 01/16/25 13:22 e-Cigarette/Vaping Use Never Used 11/28/24 13:47 Thrive Assessment: Date of Thrive Assessment Date Thrive assessed 09/19/24 02/01/25 20:07 Currently or been in a relationship where the following occur: No concerns reported Telehealth Telehealth Telehealth Platform: [facility] Location of provider rendering services: practice address Location of patient: address on file Patient Identification confirmed using: Name, : Yes Telehealth method: video Patient verbally consented to treatment: Yes Patient verbally consented to billing insurance company: Yes Patient informed of any privacy concerns related to visit: Yes Minutes spent on Phone/Video with Pt.: 20 Coding Level of Care Code Tele Est Pt Level 4 (76527) Diagnoses Anxiety and depression F41.9; F32.A Stress F43.9 Closed nondisplaced fracture of greater tuberosity of left humerus, initial encounter S42.763A Encounter type: initial encounter Fracture type: closed Fracture alignment: nondisplaced Complex tear of meniscus of right knee as current injury S83.203A Tear of meniscus of left knee S83.207A Assessment & Plan Assessment & Plan (1) Anxiety and depression: Code(s): F41.9 - Anxiety disorder, unspecified; F32.A - Depression, unspecified Category: Medical (2) Stress: Code(s): F43.9 - Reaction to severe stress, unspecified Category: Medical (3) Fracture of greater tuberosity of left humerus: Code(s): S42.252A - Displaced fracture of greater tuberosity of left humerus, initial encounter for closed fracture Category: Medical Qualifiers: Encounter type: initial encounter Fracture type: closed Fracture alignment: nondisplaced Qualified Code(s): S42.255A - Nondisplaced fracture of greater tuberosity of left humerus, initial encounter for closed fracture (4) Complex tear of meniscus of right knee as current injury: Code(s): S83.203A - Other tear of unspecified meniscus, current injury, right knee, initial encounter Category: Medical (5) Tear of meniscus of left knee: Code(s): S83.207A - Unspecified tear of unspecified meniscus, current injury, left knee, initial encounter Category: Medical Plan .
== END 2025-02-08 10:26 | disposition home or self-care (01) ==
PROVIDERS: PCP Nurse Practitioner Family; Visit Provider Nurse Practitioner Family
DX: S42.255D Nondisplaced fracture of greater tuberosity of left humerus, subsequent encounter for fracture with routine healing (principal); S83.203D Other tear of unspecified meniscus, current injury, right knee, subsequent encounter; S83.207D Unspecified tear of unspecified meniscus, current injury, left knee, subsequent encounter; Z04.2 Encounter for examination and observation following work accident; F41.9 Anxiety disorder, unspecified; F32.A Depression, unspecified; F43.9 Reaction to severe stress, unspecified

== ENCOUNTER 2025-05-05 10:58 | Outpatient (REF) | payer OTHER, SELFPAY ==
--- OUTSIDE RECORDS SUMMARY | 2024-04-21 06:40 | XMS_ITS ---
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 Name Role Phone JOCE RUTH Primary Care Provider David Cool [phone] REASON FOR VISIT dysphgia Problems Problem Type SNOMED Code ICD Code Onset Dates Problem Status W/U Status Risk Notes Problem Oropharyngeal dysphagia (27408605) Dysphagia, oropharyngeal phase (R13.12) Active confirmed Problem Chronic gastritis (8404959) Chronic gastritis (K29.50) Active confirmed Encounters Encounter Location Date Provider Diagnosis [facility] [place] Out[place] [address] [place] [id number] 04/21/2024 David Mcdowell Dysphagia, orophar yngeal phase [...] * EMIRGABRIELE BOJORQUEZHLEEN FDOB:[birth year] (64 yo F)Acc No.[id number]:04/21/2024 EGD/MAC Patient: CAYDEN BURRELL Provider: Jyoti Mcdowell MD :1960 A ge:63 Y S ex:Female Date:04/21/2024 Address:[facility] [place], [place] Pcp:JOCE RUTH Subjective: * Chief Complaints: * 1 . Dysphgia. * Medical History: Objective: * Vitals: Assessment: * Assessment: 1. D ysphagia, oropharyngeal phase - R13.12 (Primary) 2 . H iatal hernia - K44.9 3 . C hronic gastritis - K29.50 Plan: * Treatment: * Procedure Codes: 4 3249 ESOPH ENDOSCOPY, DILATION, 94352 UPPER GI ENDOSCOPY, BIOPSY, Modifiers: 59 * * The named appointment provid er may or may not be the originator of this progress note, and it is not deemed complete until electronically signed by the appointment provider. Sign off status: Pending * Provider: Jyoti Mcdowell MD Date: Generated for Lisa elias/Timmy/Daviditting on: 07/05/2024 11:02 AM EST
--- OUTSIDE RECORDS SUMMARY | 2025-05-05 11:03 | XMS_ITS | Patient Health Record ---
Author Organization [facility] Address [address] [place] [address] Care Team Providers Care Supervisor Feed House Name Role Phone JOCE RUTH Primary Care Provider David Cool Unavailable [phone] Allergies Allergen (clinical drug ingredient) Drug/Non Drug Allergy documented on EMR Reaction Allergy Type Onset Date Status Codeine Phosphate Unknown Drug Allergy Active Reason For Referral No Information Medications Medication SIG (Take, Route, Frequency, Duration) Notes Start Date End Date Status Nortriptyline HCl 10 MG Orally Active Omeprazole 20 MG 1 capsule Orally Onc e a day every morning; Duration: 30 days Active Escitalopram Oxalate Active Ibuprofen PRN Active Hyoscyamine Sulfate ER 0.375 MG 1/2 to 1 tablet Orally Q 10-12 hours abdominal cramps and discomfort; Duration: 90 days Active Gabapentin 100 MG 1 capsule at bedtime Orally Once a day Active Benefiber Active Hyoscyamine Sulfate 0.125 MG 1-2 Orally Q 4-6 hours prn abdominal pain/discomfort/bloati ng; Duration: 30 days 08/02/2020 Not-Taking MiraLax Active Synthroid Active Xanax 0.5mg BID PRN Active Atorvastatin Calcium Active Levothyroxine Sodium Active Immunizations Vaccine Route Administration Date Status Comme nts Influenza Unknown 04/10/2020 Administered Influenza Unknown 07/14/2022 Refused Influenza Unknown 09/13/2024 Refused Problems Problem Type SNOMED Code ICD Code Onset Dates Problem Status W/U Status Risk Notes Problem Irritable bowel syndrome (53086236) Irritable bowel syndrome (K58.9) Active confirmed Problem Constipation (56399155) Constipation (K59.00) Active confirmed Problem Diverticular disease of colon (283314153) Diverticulosis of large intestine without perforation or abscess without bleeding (K57.30) Active confirmed Problem Oropharyngeal dysphagia (29713489) Dysphagia, oropharyngeal phase (R13.12) Active confirmed Problem Dysphagia (61412049) Dysphagia (R13.10) Active confirmed Problem Screening for malignant neoplasm of colon (374978838) Screen for colon cancer (Z12.11) Active confirmed Problem Right lower quadrant pain (988593442) Abdominal pain, RLQ (R10.31) Active confirmed Problem Chronic gastritis (2029833) Chronic gastritis (K29.50) Active confirmed Vital Signs Temperature 97.3 degrees Fahrenheit 09/13/2024 Blood pressure diastolic 01 mm Hg 09/13/2024 Height 62 in 09/13/2024 Blood pressure systolic 001 mm Hg 09/13/2024 Weight 145 lbs 09/13/2024 BMI 26.52 kg/m2 09/13/2024 Encounters Encounter Location Date Provider Diagnosis [facility] [address] [place] [address] 09/13/2024 David Mcdowell Dysphagia R13.10 ; Chronic [...] Coverage Start Date Coverage End Date [employer] [address] [address] [place] [address] [id number] CAYDEN NUNEZ Self - patient is the insured Medical (General) History Medical History History ICD Code Colonoscopy 2--2003 with the finding of proctitis Denies MD,DM,CVA,renal disease,asthma Spontaneous pneumothorax Hypothyroidism Negative screening colonoscopy in 2--no polyps, no proctitis Diverticulitis in approx 201 5--describes a CT scan and outpatient antibiotics IBS with constipation Hyperlipidemia Anxiety Ovarian cysts COVID 05/2022 Screening colonoscopy in [facility] 2022 was negative other than a hyperplastic polyp [address] Marie at [facility] from Rheumatology for workup of possible autoimmune disease including either Sjogren's disease or Lupus 03/2024 EGD with dilation up to a 20mm balloon--no esophagitis, no EoE, no strictures/no rings, small hiatal hernia, bx neg for H.pylori in stomach Surgical History Surgery Date(Month/Year) Right elbow ulnar nerve decompression 20 10/31/2023 Cholecystectomy Partial hysterectomy 2007
--- OUTSIDE RECORDS SUMMARY | 2025-05-05 11:03 | XMS_ITS | Patient Health Record ---
Author Organization [facility] Address [address] [place] [address] Care Team Providers Care Job Service Specialist Name Role Phone Jacky Nina MD Primary Care Provider Will Isabel Unavailable [phone] Allergies Allergen (clinical drug ingredient) Drug/Non Drug [...] Note-Appointment . . . Pt had a [facility] appointment today; Duration: . 04/10/2016 Active Social History Tobacco use other than smoking: Question Answer Notes Are you an other tobacco user? No Problems Problem Type SNOMED Code ICD Code Onset Dates Problem Status W/U Status Risk Notes Problem Abscess of toe (255781199) Abscess of toe, left (L02.612) Active confirmed Plan Of Treatment Pending Test Test Name Order Date 20479 I&D ABSCESS- SIMPLE,SINGLE 016 Insurance Providers Payer Name Payer Address Payer Phone Subscriber Number Group Number Insured Name Patient Relationship to Insured Coverage Start Date Coverage End Date [facility] [address] [facility] [address] [id number] Mackenzie Lester Self - patient is the insured Medical (General) History Medical History History ICD Code Gall bladder problems chronic sinusitis Thyroid disorder Measles Chicken pox Surgical History Surgery Date(Month/Year) gall bladder 08/2015 hysterectomy 08/2009
[2025-05-05 13:35] LABS: MANUAL DIFF FLAG NO
[2025-05-05 13:42] LABS: Hematocrit 46.1 % (37.0-47.0); Hemoglobin 15.3 g/dl (12.0-16.0); Imm Gran Abs Auto 0.02 X10*3/uL (0.00-0.03); Imm Gran Pct Auto 0.2 % (0.0-0.4); Lymphocytes Absolute Auto 3.6 X10*3/uL (1.2-4.9); Mean Corpuscular HGB Conc 33.2 g/dl (31.0-35.0); Mean Corpuscular Hemoglobin 29.5 pg (27.0-33.0); Mean Corpuscular Volume 88.8 fL (80.0-98.0); NRBC Abs Auto 0.000 X10*3/uL (0.0-0.012); NRBC Pct Auto 0.0 /100WBC (0.0-0.2); Platelet Count 617 X10*3/uL (160-400); Red Blood Count 5.19 X10*6/uL (4.20-5.50); White Blood Count 8.5 X10*3/uL (4.8-10.8)
[2025-05-05 14:01] LABS: Appearance Urine Clear; Glucose Urine UA Negative (Negative); PH 6.5 (5.0-9.0); Specific Gravity - Urine 1.015 (1.005-1.025); UMIC TRIGGER UACC YES
[2025-05-05 14:03] LABS: Alanine Aminotransferase 56 U/L (0-31); Albumin Level 4.5 g/dL (3.5-5.0); Alkaline Phosphatase 55 U/L (39-117); Anion Gap 14 (12-20); Aspartate Amino Transferase 35 U/L (5-31); Blood Urea Nitrogen 11 mg/dL (9-16); Calcium 9.3 mg/dL (8.4-10.2); Carbon Dioxide 26 mmol/L (22-29); Chloride 106 mmol/L (96-108); Cholesterol 196 mg/dL (<200); Estimated Glomerular Filt Rate > 60; HDL Cholesterol 53 mg/dL (>40); Potassium 3.7 mmol/L (3.3-5.1); Sodium 142 mmol/L (135-145); Total Protein 7.0 g/dL (6.5-8.0); Triglycerides 133 mg/dL (<150)
== END 2025-05-05 10:59 | disposition home or self-care (01) ==
LOC: HO.HMGCLDS 10:58
PROVIDERS: PCP Nurse Practitioner Family; Visit Provider Nurse Practitioner Family
DX: Z00.01 Encounter for general adult medical examination with abnormal findings (principal); E55.9 Vitamin D deficiency, unspecified; Z13.29 Encounter for screening for other suspected endocrine disorder; Z13.6 Encounter for screening for cardiovascular disorders
CPT/HCPCS: 36415; 80053; 80061; 81001; 81003; 82306; 84443; 85025

== ENCOUNTER 2025-05-07 12:58 | Outpatient (AMB) | payer OTHER, SELFPAY ==
--- OUTSIDE RECORDS SUMMARY | 2024-04-21 06:40 | XMS_ITS ---
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 Name Role Phone JOCE RUTH Primary Care Provider David Cool [phone] REASON FOR VISIT dysphgia Problems Problem Type SNOMED Code ICD Code Onset Dates Problem Status W/U Status Risk Notes Problem Oropharyngeal dysphagia (93212117) Dysphagia, oropharyngeal phase (R13.12) Active confirmed Problem Chronic gastritis (4862176) Chronic gastritis (K29.50) Active confirmed Encounters Encounter Location Date Provider Diagnosis [facility] [place] [address] [place] [id number] 04/21/2024 David Mcdowell Dysphagia, orophar yngeal phase [...] * EMIRGABRIELE BOJORQUEZHLEEN FDOB:[birth year] (64 yo F)Acc No.[id number]:04/21/2024 EGD/MAC Patient: CAYDEN BURRELL Provider: Jyoti Mcdowell MD :1960 A ge:63 Y S ex:Female Date:04/21/2024 Address:[facility] [place], [place] Pcp:JOCE RUTH Subjective: * Chief Complaints: * 1 . Dysphgia. * Medical History: Objective: * Vitals: Assessment: * Assessment: 1. D ysphagia, oropharyngeal phase - R13.12 (Primary) 2 . H iatal hernia - K44.9 3 . C hronic gastritis - K29.50 Plan: * Treatment: * Procedure Codes: 4 3249 ESOPH ENDOSCOPY, DILATION, 36502 UPPER GI ENDOSCOPY, BIOPSY, Modifiers: 59 * * The named appointment provid er may or may not be the originator of this progress note, and it is not deemed complete until electronically signed by the appointment provider. Sign off status: Pending * Provider: Jyoti Mcdowell MD Date: Generated for Lisa elias/Timmy/Neelima on: 07/07/2024 03:05 PM EST
[2025-05-07 13:00] VITALS: BP 150/90; PULSE 93; RESP 16; O2SAT 100; BMI 26.3
--- NOTE | 2025-05-07 13:00 | MHC.PC.OV ---
Vital Signs 05/07/25 13:00 Height 5 ft 4 in Weight 153 lb BMI 26.3 BP 150/90 H Blood Pressure Location Lt brachial Position Sitting Respiration 16 Pulse 93 Pulse Source Pulse Oximeter Pulse Oximetry (%) 100 Oxygen Delivery Method Room Air Intake Visit Reasons: EP 3 mo follow up Gis Specialist Required: No Accompanied by: Self / Same As Patient Allergies No Known Allergies Allergy (Mild, Verified 05/07/25 13:04) NKA Tobacco use date assessed: 05/07/25 Fall risk assessment: 1 Fall in past year Last assessed Fall Risk: 05/07/25 Dental Screening Dental Screen Date: 05/07/25 Did you have a dental visit in the last 12 months?: Yes Did you have a dental problem in the last 6 months where you did not have access to dental care?: No Was dental information given to patient?: Patient has dentist HPI EP 3 mo follow up HPI Details Chief Complaint The patient presents for evaluation and management of ongoing and worsening pain in her knees and shoulders following a work-related fall. History of Present Illness The patient is a 64-year-old female presenting for management of a workman's compensation case. 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 She reports increasing pain in her knees, with the right side being worse than the left. A previous left knee MRI revealed moderate osteoarthritis of the patellofemoral compartment, mild osteoarthritis of the medial compartment, a tear of the anterior horn of the lateral meniscus, a small joint effusion, and a Ledesma's cyst. An MRI of the right knee showed an oblique superior surface tear of the lateral meniscus, tricompartmental osteoarthrosis which was most significant in the patellofemoral compartment, chondromalacia patellae, subchondral bone plate edema, joint fluid, and bursitis. She has also experienced discomfort in her left shoulder. A left shoulder MRI indicated a nondisplaced fracture of the humerus, tear/fraying and tendinosis of the supraspinatus tendon, tendinosis of the subscapularis, fluid in the bursa, and mild to moderate degenerative arthrosis in the AC joint. More recently, she has begun to develop ongoing right shoulder discomfort, and a right shoulder X-ray from April of last year showed mild AC joint arthritis. The patient was previously attending physical therapy, but this has stopped due to a notification that her treatments were no longer covered, though this may be a misunderstanding. She has become more sedentary because of the severe pain. Calf pain (right) reported. 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 - Functional Status: The patient has become much more sedentary due to the severe pain from her injuries. Health Maintenance Review of Systems - Musculoskeletal: Reports increasing bilateral knee pain, right greater than left. - Reports ongoing severe pain and discomfort, especially with standing and with flexion-extension of the right knee. - Reports persistent discomfort in the left shoulder and new, ongoing discomfort in the right shoulder. - Reports new onset of right calf pain today. Physical Exam General: Cooperative, healthy appearing, uncomfortable, no acute distress and well developed Orientation: Patient oriented x3 Limitations: Limited range of motion to her right upper extremity Head: Normal to inspection Ears: Hearing grossly normal bilaterally Nose: Normal external nose present Face and sinus: Normal facial exam Eyes: Appearance normal, both eyes and all related structures Neck: Normal visual inspection and Yes full ROM Respiratory: Normal respiratory effort and able to speak in complete sentences. Clear to auscultation bilaterally Cardiovascular: Regular rate and rhythm. Normal S1 and S2 GI: Normal to inspection. Soft to palpation and nontender Skin: No rashes or lesions noted Neuro: Patient oriented x3 Extremities: Significant swelling noted to the right knee, severe tenderness pointed to the lateral meniscus region of the right knee, tenderness noted with extension and flexion at the knee (right). Calf tenderness noted with palpation (right), faintly swollen. crepitus noted to Left patellar region with extension and flexion. limited ROM noted to RUE due to pain (entire right shoulder). + pravin and nel. Results - Left Knee MRI: Showed moderate osteoarthritis of the patellofemoral compartment, mild osteoarthritis of the medial compartment, a tear of the anterior horn of the lateral meniscus, a small joint effusion, and a Ledesma's cyst. - Right Knee MRI: Showed an oblique superior surface tear of the lateral meniscus at the junction of the body and anterior horn, extending into the anterior horn and anterior root entry zone; tricompartmental osteoarthrosis, most significant in the patellofemoral compartment; chondromalacia patellae; subchondral bone plate edema; joint fluid; and bursitis. - Left Shoulder MRI: Showed a nondisplaced fracture of the humerus, tear/fraying of the supraspinatus tendon, tendinosis of the subscapularis and supraspinatus tendons, fluid in the bursa, and mild to moderate degenerative arthrosis in the AC joint. - Right Shoulder X-ray (April of last year): Showed mild AC joint arthritis. Plan 1. Bilateral Knee Pain And Derangement The patient's knee pain is increasing, with the right knee being more severe, corresponding to extensive MRI findings of meniscal tears and osteoarthrosis in both knees. Her clinical condition is worsening. She is scheduled, or will be scheduled, to see an head orthopedic team physician pending approval from workman's compensation for further management. 2. Right Shoulder Pain The patient is developing increased right shoulder pain, ongoing right shoulder discomfort with limited range of motion on exam. An MRI of her right shoulder will be ordered to further evaluate the cause of her symptoms. This will also can be evaluated by the head orthopedic team physician (of WC choice). 3. Left Shoulder Pain The patient has persistent discomfort in the left shoulder, with MRI findings confirming a previous nondisplaced humeral fracture, supraspinatus tear, and other degenerative changes. Management for this will be deferred to the head orthopedic team physician chosen by workman's compensation. 4. Right Calf Pain The patient developed new right calf pain today, which is concerning as she has become more sedentary due to her injuries, increasing her risk for deep vein thrombosis (DVT). A venous Doppler ultrasound of the right lower extremity will be ordered to rule out DVT. Discussion Notes I discussed with the patient that her case is being managed under workman's compensation following her fall at work. We reviewed that she is experiencing increasing pain and that her clinical condition is worsening, not improving. I explained that a referral to an head orthopedic team physician is crucial, but we are awaiting approval from workman's compensation to proceed. Regarding her new right shoulder pain, I informed her that I will be ordering an MRI to investigate further. I also addressed the new right calf pain, explaining that due to her being more sedentary from the pain, it is important to rule out a blood clot, and thus I am ordering a venous Doppler study. Patient Instructions - Your visit is for injuries related to your fall at work, which is being handled by workman's compensation. - We are arranging for you to see a bone and joint specialist (orthopedist), but this requires approval from workman's compensation. - I have ordered an MRI for your right shoulder to look into the cause of your new pain. - I have also ordered an ultrasound (venous Doppler) of your right leg because of the new calf pain and your reduced activity level. This is to check for a blood clot. - It is important to see the specialist soon so your condition does not get worse. 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 Mother Breast cancer Hypothyroidism High cholesterol Diabetes mellitus HTN (hypertension) Daughter Ankylosing spondylitis Fibromyalgia Maternal Grandmother CVD (cardiovascular disease) Maternal Grandfather Lung cancer Paternal Grandfather Unknown family medical history Paternal Grandmother Unknown family medical history Maternal Aunt Melanoma Brother Melanoma Social History Housing: House Are you a primary director critical care to a significant other at home: No Do you presently have visiting nurse or other home services: No Alcohol intake: current Alcohol intake frequency: holidays/special occasions only Comment: counts correct Patient Tobacco Use Status: Former Tobacco user Years Smoked: quit 35 years ago e-Cigarette/Vaping Use: Never Used Second Hand Smoke Exposure: No service: No Current occupational status: employed Current occupation: [employer] Current occupational exposures/hazards: No Sexual orientation: Straight/Heterosexual Gender identity: Female Cognitive needs: No Hearing needs: No Vision needs: No Questionnaire Thrive Questionnaire Date Thrive assessed: 09/19/24 I am a: Patient What is your living situation today?: I have a steady place to live Within the past 12 months, did the food you bought not last and you didn't have the money to get more?: Never true Within the past 12 months, did you worry whether your food would run out before you got money to buy more?: Never true Do you have trouble paying for medicines?: No Do you have trouble getting transportation to medical appointments?: No Do you have trouble paying your heating and electricity bill?: No Do you have trouble taking care of your child, family member or friend?: No Do you have trouble with day-to-day activities such as bathing, preparing meals, shopping, managing finances, etc.?: I choose not to answer this question Are you currently unemployed and looking for a job?: No Are you interested in more education?: No Please select the resources that you would like help with: None Currently or been in a relationship where the following occur: No concerns reported THRIVE Score: 0 ELROY-7 AMB Questionnaire ELROY-7 Date ELROY - 7 assessed: 09/26/24 Source: Developed by Drs. David Eldridge, Lindy Blunt, Efra Villalba and colleagues, with an educational pat from [employer]. Physical exam (Primary Care) Vital Signs: Last Vital Signs Pulse 93 05/07/25 13:00 Resp 16 05/07/25 13:00 BP 150/90 H 05/07/25 13:00 Pulse Ox 100 05/07/25 13:00 Oxygen Delivery Method Room Air 05/07/25 13:00 BMI result Body Mass Index 26.3 Tobacco/Smoking Status: Tobacco use Status Tobacco use date assessed 05/07/25 05/07/25 13:03 Patient Tobacco Use Status Former Tobacco user 05/07/25 13:03 e-Cigarette/Vaping Use Never Used 05/07/25 13:03 Thrive Assessment: Date of Thrive Assessment Date Thrive assessed 09/19/24 05/07/25 13:03 Currently or been in a relationship where the following occur: No concerns reported Coding Level of Care Code Est Pt Level 4 (03213) Diagnoses Pain in right leg M79.604 Right shoulder pain M25.511 Closed nondisplaced fracture of greater tuberosity of left humerus, initial encounter S42.255A Encounter type: initial encounter Fracture type: closed Fracture alignment: nondisplaced Complex tear of meniscus of right knee as current injury S83.203A Tear of meniscus of left knee S83.207A Pain in joint involving multiple sites M25.50 Fall W19.XXXA Assessment & Plan Assessment & Plan (1) Pain in right leg: Code(s): M79.604 - Pain in right leg Category: Medical (2) Right shoulder pain: Code(s): M25.511 - Pain in right shoulder Category: Medical (3) Fracture of greater tuberosity of left humerus: Code(s): S42.252A - Displaced fracture of greater tuberosity of left humerus, initial encounter for closed fracture Category: Medical Qualifiers: Encounter type: initial encounter Fracture type: closed Fracture alignment: nondisplaced Qualified Code(s): S42.255A - Nondisplaced fracture of greater tuberosity of left humerus, initial encounter for closed fracture (4) Complex tear of meniscus of right knee as current injury: Code(s): S83.203A - Other tear of unspecified meniscus, current injury, right knee, initial encounter Category: Medical (5) Tear of meniscus of left knee: Code(s): S83.207A - Unspecified tear of unspecified meniscus, current injury, left knee, initial encounter Category: Medical (6) Pain in joint involving multiple sites: Code(s): M25.50 - Pain in unspecified joint Category: Medical (7) Fall: Code(s): W19.XXXA - Unspecified fall, initial encounter Category: Medical Plan . Orders: Orders US venous duplex LE RT Today M79.604 - Pain in right leg, R79.89 - Other specified abnormal findings of blood chemistry MR shoulder RT wo con Today M25.511 - Pain in right shoulder
--- OUTSIDE RECORDS SUMMARY | 2025-05-07 15:05 | XMS_ITS | Patient Health Record ---
Author Organization [facility] Address [address] [place] [address] Care Team Providers Care Manager Of Pharmacy Name Role Phone Jacky Nina MD Primary Care Provider Will Isabel Unavailable [phone] Allergies Allergen (clinical drug ingredient) Drug/Non Drug [...] Note-Appointment . . . Pt had a [facility] appointment today; Duration: . 04/10/2016 Active Social History Tobacco use other than smoking: Question Answer Notes Are you an other tobacco user? No Problems Problem Type SNOMED Code ICD Code Onset Dates Problem Status W/U Status Risk Notes Problem Abscess of toe (610401049) Abscess of toe, left (L02.612) Active confirmed Plan Of Treatment Pending Test Test Name Order Date 03258 I&D ABSCESS- SIMPLE,SINGLE 016 Insurance Providers Payer Name Payer Address Payer Phone Subscriber Number Group Number Insured Name Patient Relationship to Insured Coverage Start Date Coverage End Date [facility] [address] [facility] [id number] Mackenzie Lester Self - patient is the insured Medical (General) History Medical History History ICD Code Gall bladder problems chronic sinusitis Thyroid disorder Measles Chicken pox Surgical History Surgery Date(Month/Year) gall bladder 08/2015 hysterectomy 08/2009
--- OUTSIDE RECORDS SUMMARY | 2025-05-07 15:06 | XMS_ITS | Patient Health Record ---
Author Organization [facility] Address [address] [place] [address] Care Team Providers Care Senior Data Integration Developer Name Role Phone JOCE RUTH Primary Care Provider David Cool Unavailable [phone] Allergies Allergen (clinical drug ingredient) Drug/Non Drug [...] Status Risk Notes Problem Irritable bowel syndrome (23056842) Irritable bowel syndrome (K58.9) Active confirmed Problem Constipation (23191341) Constipation (K59.00) Active confirmed Problem Diverticular disease of colon (019861282) Diverticulosis of large intestine without perforation or abscess without bleeding (K57.30) Active confirmed Problem Oropharyngeal dysphagia (96718570) Dysphagia, oropharyngeal phase (R13.12) Active confirmed Problem Dysphagia (53366415) Dysphagia (R13.10) Active confirmed Problem Screening for malignant neoplasm of colon (079681619) Screen for colon cancer (Z12.11) Active confirmed Problem Right lower quadrant pain (387326479) Abdominal pain, RLQ (R10.31) Active confirmed Problem Chronic gastritis (8263079) Chronic gastritis (K29.50) Active confirmed Vital Signs Temperature 97.3 degrees Fahrenheit 09/13/2024 Blood pressure diastolic 01 mm Hg 09/13/2024 Height 62 in 09/13/2024 Blood pressure systolic 001 mm Hg 09/13/2024 Weight 145 lbs 09/13/2024 BMI 26.52 kg/m2 09/13/2024 Encounters Encounter Location Date Provider Diagnosis [facility] [address] [place] [address] 09/13/2024 David Mcdowell Dysphagia R13.10 ; Chronic [...] Coverage Start Date Coverage End Date [employer] [address] [address] [place] [address] [id number] CAYDEN NUNEZ Self - patient is the insured Medical (General) History Medical History History ICD Code Colonoscopy 2--2003 with the finding of proctitis Denies ID,DM,CVA,renal disease,asthma Spontaneous pneumothorax Hypothyroidism Negative screening colonoscopy in 2--no polyps, no proctitis Diverticulitis in approx 201 5--describes a CT scan and outpatient antibiotics IBS with constipation Hyperlipidemia Anxiety Ovarian cysts COVID 05/2022 Screening colonoscopy in [facility] 2022 was negative other than a hyperplastic polyp [address] Marie at [facility] from Rheumatology for workup of possible autoimmune disease including either Sjogren's disease or Lupus 03/2024 EGD with dilation up to a 20mm balloon--no esophagitis, no EoE, no strictures/no rings, small hiatal hernia, bx neg for H.pylori in stomach Surgical History Surgery Date(Month/Year) Right elbow ulnar nerve decompression 20 10/31/2023 Cholecystectomy Partial hysterectomy 2007
== END 2025-05-07 14:53 | disposition home or self-care (01) ==
PROVIDERS: PCP Nurse Practitioner Family; Visit Provider Nurse Practitioner Family
DX: M79.604 Pain in right leg (principal); M25.511 Pain in right shoulder; S42.255A Nondisplaced fracture of greater tuberosity of left humerus, initial encounter for closed fracture; S83.203A Other tear of unspecified meniscus, current injury, right knee, initial encounter; S83.207A Unspecified tear of unspecified meniscus, current injury, left knee, initial encounter; M25.50 Pain in unspecified joint; W19.XXXA Unspecified fall, initial encounter

== ENCOUNTER 2025-05-07 14:15 | Outpatient (REF) | payer OTHER, SELFPAY ==
--- NOTE | ~2025-05-07 | US_ITS ---
EXAMINATION: US TRIPLEX LOWER EXTREMITY, RIGHT CLINICAL INFORMATION: Pain, rule out DVT COMPARISON: None available. TECHNIQUE: Color-flow triplex imaging with spectral analysis and compression Doppler were performed on the right lower extremity. FINDINGS: Respiratory variation, normal compression and augmented flow are noted throughout the right lower extremity. The visualized common femoral vein, superficial femoral vein, profunda femoral vein, popliteal vein and midcalf peroneal and posterior tibial venous segments show no evidence of deep venous thrombosis. There is no Ledesma's cyst. US/US venous duplex LE RT IMPRESSION: No evidence of deep venous thrombosis involving the right lower extremity. Electronically signed by: Rd Blevins MD 05/07/2025 03:49 PM CHATO
== END 2025-05-07 14:16 | disposition home or self-care (01) ==
LOC: HO.HMGCX 14:15
PROVIDERS: PCP Nurse Practitioner Family; Visit Provider Nurse Practitioner Family
DX: M79.604 Pain in right leg (principal); R79.89 Other specified abnormal findings of blood chemistry; M25.561 Pain in right knee; M25.562 Pain in left knee; M25.512 Pain in left shoulder; M25.511 Pain in right shoulder; S42.255A Nondisplaced fracture of greater tuberosity of left humerus, initial encounter for closed fracture; S83.203A Other tear of unspecified meniscus, current injury, right knee, initial encounter; S83.207A Unspecified tear of unspecified meniscus, current injury, left knee, initial encounter; W19.XXXA Unspecified fall, initial encounter; Y93.9 Activity, unspecified; Y92.9 Unspecified place or not applicable; Y99.9 Unspecified external cause status
CPT/HCPCS: 93971; 99212

== ENCOUNTER → 2025-05-07 14:19 | Outpatient (BNV) | payer OTHER, SELFPAY | PROVIDERS: PCP Nurse Practitioner Family; Visit Provider Radiology Diagnostic Ultrasound | DX: M79.604 Pain in right leg (principal) | CPT/HCPCS: 93971 ==

== ENCOUNTER 2025-05-16 09:31 | Outpatient (REF) | payer OTHER, SELFPAY ==
--- OUTSIDE RECORDS SUMMARY | 2024-04-21 06:40 | XMS_ITS ---
Author Organization [facility] Address [address] [place] [address] Care Team Providers Care Home Health Care Respiratory Therapist Name Role Phone JOCE RUTH Primary Care Provider David Cool [phone] REASON FOR VISIT dysphgia Problems Problem Type SNOMED Code ICD Code Onset Dates Problem Status W/U Status Risk Notes Problem Oropharyngeal dysphagia (28927768) Dysphagia, oropharyngeal phase (R13.12) Active confirmed Problem Chronic gastritis (4135203) Chronic gastritis (K29.50) Active confirmed Encounters Encounter Location Date Provider Diagnosis [facility] Outpatient [address] [place] [address] [phone] 04/21/2024 David Mcdowell Dysphagia, orophar yngeal phase [...] * EMIRGABRIELE BOJORQUEZHLEEN FDOB:[birth year] (64 yo F)Acc No.[id number]:04/21/2024 EGD/MAC Patient: CAYDEN BURRELL Provider: Jyoti Mcdowell MD :1960 A ge:63 Y S ex:Female Date:04/21/2024 Address:[facility] [place], [place] Pcp:JOCE RUTH Subjective: * Chief Complaints: * D ysphgia Assessment: * Assessment: 1. D ysphagia, oropharyngeal phase - R13.12 (Primary) 2 . H iatal hernia - K44.9 3 . C hronic gastritis - K29.50 Plan: * Procedure Codes: 4 3249 ESOPH ENDOSCOPY, [id number] UPPER GI ENDOSCOPY, BIOPSY, Modifiers: 59 Billing Information: * Procedure Codes: 79479 ESOPH ENDOSCOPY, DILATION. 41315 UPPER GI ENDOSCOPY, BIOPSY. Modifiers: 59 * The named appointment provid er may or may not be the originator of this progress note, and it is not deemed complete until electronically signed by the appointment provider. Sign off status: Pending * Provider: Jyoti Mcdowell MD Date: Generated for Lisa elias/Timmy/Daviditting on: 07/16/2024 05:33 PM EST
--- NOTE | ~2025-05-16 | US_ITS ---
CLINICAL HISTORY: R74.8 - Abnormal levels of other serum enzymes US abdomen complete. COMPARISON: None provided. Technique: Real time sonographic imaging, including color-flow imaging, was performed by the creasing and cutting press feeder. Multiple customer solutions representative static images were saved for review. FINDINGS: The visualized aorta and inferior vena cava are normal caliber. The visualized portions of the pancreas appear normal. The liver has diffusely increased echogenicity. The main portal vein is antegrade. Liver, right lobe size: 12.4 cm, normal. Cholecystectomy. Common bile duct: 4 mm, normal. Right kidney: Cortical medullary differentiation is maintained. Normal color flow by Doppler. No calculus or focal parenchymal abnormality identified. No hydronephrosis. Right kidney size: 10.7 cm Left kidney: Cortical medullary differentiation is maintained. Normal color flow by Doppler. No calculus or focal parenchymal abnormality identified. No hydronephrosis. Left kidney size: 11.2 cm The spleen has normal echogenicity. Splenic length: 8.7 cm, normal. No free intraperitoneal fluid identified. IMPRESSION: 1. No acute findings. No evidence of renal obstruction. 2. Hepatic steatosis. This document has been electronically signed by: Garret Saavedra MD on 05/16/2025 13:08:36
--- OUTSIDE RECORDS SUMMARY | 2025-05-16 17:33 | XMS_ITS | Patient Health Record ---
Author Organization [facility] Address [address] [place] [address] Care Team Providers Care Global Program Manager Name Role Phone JOCE RUTH Primary Care Provider David Cool Unavailable [phone] Allergies Allergen (clinical drug ingredient) Drug/Non Drug Allergy documented on EMR Reaction Allergy Type Onset Date Status Codeine Phosphate Unknown Drug Allergy Active Reason For Referral No Information Medications Medication SIG (Take, Route, Frequency, Duration) Notes Start Date End Date Status Nortriptyline HCl 10 MG Capsule Orally Active Omeprazole 20 MG Capsule Delayed Release 1 capsule Orally Once a day every morning; Duration: 30 days Active Escitalopram Oxalate Active Ibuprofen PRN Active Hyoscyamine Sulfate ER 0.375 MG Tablet Extended Release 12 Hour 1/2 to 1 tablet Orally Q 10-12 hours abdominal cramps and discomfort; Duration: 90 days Active Gabapentin 100 MG Capsule 1 capsule at bedtime Orally Once a day Active Benefiber Active Hyoscyamine Sulfate 0.125 MG Tablet 1-2 Orally Q 4-6 hours prn abdominal pain/discomfort/bloa ting; Duration: 30 days 08/02/2020 Not-Taking/PRN MiraLax Active Synthroid Active Xanax 0.5mg BID PRN Active Atorvastatin Calcium Active Levothyroxine Sodium Active Immunizations Vaccine Route Administration Date Status Comme nts Influenza Unknown 04/10/2020 Administered Influenza Unknown 07/14/2022 Refused Influenza Unknown 09/13/2024 Refused Social History Social History Additional Details Category Social Info Options Details Miscellaneous: Marital status: 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 [employer] Section Notes: Nonsmoker; no alcohol Nonsmoker; no alcohol Nonsmoker; no alcohol Nonsmoker; no alcohol Nonsmoker; no alcohol Nonsmoker; no alcohol Problems Problem Type SNOMED Code ICD Code Onset Dates Problem Status W/U Status Risk Notes Problem Irritable bowel syndrome (30478777) Irritable bowel syndrome (K58.9) Active confirmed Problem Constipation (68033396) Constipation (K59.00) Active confirmed Problem Diverticular disease of colon (161243963) Diverticulosis of large intestine without perforation or abscess without bleeding (K57.30) Active confirmed Problem Oropharyngeal dysphagia (01949854) Dysphagia, oropharyngeal phase (R13.12) Active confirmed Problem Dysphagia (36893470) Dysphagia (R13.10) Active confirmed Problem Screening for malignant neoplasm of colon (034535815) Screen for colon cancer (Z12.11) Active confirmed Problem Right lower quadrant pain (554485021) Abdominal pain, RLQ (R10.31) Active confirmed Problem Chronic gastritis (0762003) Chronic gastritis (K29.50) Active confirmed Vital Signs Temperature 97.3 degrees Fahrenheit 09/13/2024 Blood pressure diastolic 01 mm Hg 09/13/2024 Height 62 in 09/13/2024 Blood pressure systolic 001 mm Hg 09/13/2024 Weight 145 lbs 09/13/2024 BMI 26.52 kg/m2 09/13/2024 Encounters Encounter Location Date Provider Diagnosis [facility] [address] [place] [address] 09/13/2024 David Mcdowell Dysphagia R13.10 ; Chronic [...] 03/31/2012 CELIAC PANEL #10 01/06/2012 ENDOMYSIAL IGA 01/06/2012 ENDOMYSIAL IGA 03/31/2012 TRANSGLUTAMINASE [...] Coverage Start Date Coverage End Date [employer] S [employer] [address] [address] [address] [place] [address] [id number] CAYDEN NUNEZ Self - patient is the insured Medical (General) History Medical History History ICD Code Colonoscopy 08-01-2003 with the finding of proctitis Denies MA,DM,CVA,renal disease,asthma Spontaneous pneumothorax Hypothyroidism Negative screening colonoscopy in 2--no polyps, no proctitis Diverticulitis in approx 201 5--describes a CT scan and outpatient antibiotics IBS with constipation Hyperlipidemia Anxiety Ovarian cysts COVID 05/2022 Screening colonoscopy in Aug was negative other than a hyperplastic polyp [address] Marie at [facility] from Rheumatology for workup of possible autoimmune disease including either Sjogren's disease or Lupus 03/2024 EGD with dilation up to a 20mm balloon--no esophagitis, no EoE, no strictures/no rings, small hiatal hernia, bx neg for H.pylori in stomach Surgical History Surgery Date(Month/Year) Partial hysterectomy 2007 Cholecystectomy Right elbow ulnar nerve decompression 10/31/2023
--- OUTSIDE RECORDS SUMMARY | 2025-05-16 17:33 | XMS_ITS | Patient Health Record ---
Author Organization [facility] Address [address] [place] [address] Care Team Providers Care Shredding Machine Operator Name Role Phone Jacky Nina MD Primary Care Provider Will Isabel Unavailable [phone] Allergies Allergen (clinical drug ingredient) Drug/Non Drug [...] Note-Appointment . . . Pt had a [facility] appointment today; Duration: . 04/10/2016 Active Social History Tobacco use other than smoking: Question Answer Notes Are you an other tobacco user? No Problems Problem Type SNOMED Code ICD Code Onset Dates Problem Status W/U Status Risk Notes Problem Abscess of toe (282841258) Abscess of toe, left (L02.612) Active confirmed Plan Of Treatment Pending Test Test Name Order Date 75304 I&D ABSCESS- SIMPLE,SINGLE 016 Insurance Providers Payer Name Payer Address Payer Phone Subscriber Number Group Number Insured Name Patient Relationship to Insured Coverage Start Date Coverage End Date [facility] [address] [place] [facility] [id number] Mackenzie Lester Self - patient is the insured Medical (General) History Medical History History ICD Code Gall bladder problems chronic sinusitis Thyroid disorder Measles Chicken pox Surgical History Surgery Date(Month/Year) gall bladder 08/2015 hysterectomy 08/2009
== END 2025-05-16 09:32 | disposition home or self-care (01) ==
LOC: HO.HMGCX 09:31
PROVIDERS: PCP Nurse Practitioner Family; Visit Provider Nurse Practitioner Family
DX: R74.8 Abnormal levels of other serum enzymes (principal); R31.29 Other microscopic hematuria
CPT/HCPCS: 76700

== ENCOUNTER → 2025-05-16 09:32 | Outpatient (BNV) | payer OTHER, SELFPAY | PROVIDERS: PCP Nurse Practitioner Family; Visit Provider Radiology Diagnostic Radiology | DX: K76.0 Fatty (change of) liver, not elsewhere classified (principal) | CPT/HCPCS: 76700 ==

== ENCOUNTER 2025-05-25 10:06 | Outpatient (AMB) | payer OTHER, SELFPAY ==
--- OUTSIDE RECORDS SUMMARY | 2024-04-21 06:40 | XMS_ITS ---
Author Organization [facility] Address [address] [place] [address] Care Team Providers Care Child Care Associate Teacher Name Role Phone JOCE RUTH Primary Care Provider David Cool [phone] REASON FOR VISIT dysphgia Problems Problem Type SNOMED Code ICD Code Onset Dates Problem Status W/U Status Risk Notes Problem Oropharyngeal dysphagia (09364331) Dysphagia, oropharyngeal phase (R13.12) Active confirmed Problem Chronic gastritis (0324222) Chronic gastritis (K29.50) Active confirmed Encounters Encounter Location Date Provider Diagnosis [facility] Outpatient [address] [place] [address] [id number] 04/21/2024 David Mcdowell Dysphagia, orophar yngeal phase R13.12 ; Hiatal hernia K44.9 and Chronic gastritis K29.50 Assessments Encounter Date Diagnosis (ICD Code) Assessment Notes Treatment Notes Treatment Clinical Notes Section Notes 04/21/2024 Dysphagia, oropharyngeal phase (ICD-10 - R13.12) 04/21/2024 Hiatal hernia (ICD-10 - K44.9) 04/21/2024 Chronic gastritis (ICD-10 - K29.50) Plan Of Treatment No Information Progress Notes * EMIRGABRIELE BOJORQUEZHLEEN FDOB:[birth year] (64 yo F)Acc No.[id number]:04/21/2024 EGD/MAC Patient: CAYDEN BURRELL Provider: Jyoti Mcdowell MD :1960 A ge:63 Y S ex:Female Date:04/21/2024 Address:[facility] [place], [place] Pcp:JOCE RUTH Subjective: * Chief Complaints: * D ysphgia Assessment: * Assessment: 1. D ysphagia, oropharyngeal phase - R13.12 (Primary) 2 . H iatal hernia - K44.9 3 . C hronic gastritis - K29.50 Plan: * Procedure Codes: 4 3249 ESOPH ENDOSCOPY, [id number] UPPER GI ENDOSCOPY, BIOPSY, Modifiers: 59 Billing Information: * Procedure Codes: 75725 ESOPH ENDOSCOPY, DILATION. 96042 UPPER GI ENDOSCOPY, BIOPSY. Modifiers: 59 * The named appointment provid er may or may not be the originator of this progress note, and it is not deemed complete until electronically signed by the appointment provider. Sign off status: Pending * Provider: Jyoti Mcdowell MD Date: Generated for Lisa elias/Timmy/Daviditting on: 07/25/2024 10:08 AM EST
--- OUTSIDE RECORDS SUMMARY | 2025-05-25 10:08 | XMS_ITS | Patient Health Record ---
Author Organization [facility] Address [address] [place] [address] Care Team Providers Care Furnace Packer Name Role Phone Jacky Nina MD Primary Care Provider Will Isabel Unavailable [phone] Allergies Allergen (clinical drug ingredient) Drug/Non Drug [...] Note-Appointment . . . [facility] a [facility]; Duration: . 04/10/2016 Active Social History Tobacco use other than smoking: Question Answer Notes Are you an other tobacco user? No Problems Problem Type SNOMED Code ICD Code Onset Dates Problem Status W/U Status Risk Notes Problem Abscess of toe (761259069) Abscess of toe, left (L02.612) Active confirmed Plan Of Treatment Pending Test Test Name Order Date 54676 I&D ABSCESS- SIMPLE,SINGLE 016 Insurance Providers Payer Name Payer Address Payer Phone Subscriber Number Group Number Insured Name Patient Relationship to Insured Coverage Start Date Coverage End Date [facility] [address] [place] [facility] [address] [phone] [id number] Mackenzie Lester Self - patient is the insured Medical (General) History Medical History History ICD Code Gall bladder problems chronic sinusitis Thyroid disorder Measles Chicken pox Surgical History Surgery Date(Month/Year) gall bladder 08/2015 hysterectomy 08/2009
--- OUTSIDE RECORDS SUMMARY | 2025-05-25 10:08 | XMS_ITS | Patient Health Record ---
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 [employer] Section Notes: Nonsmoker; no alcohol Nonsmoker; no alcohol Nonsmoker; no alcohol Nonsmoker; no alcohol Nonsmoker; no alcohol Nonsmoker; no alcohol Problems Problem Type SNOMED Code ICD Code Onset Dates Problem Status W/U Status Risk Notes Problem Irritable bowel syndrome (90660118) Irritable bowel syndrome (K58.9) Active confirmed Problem Constipation (38040252) Constipation (K59.00) Active confirmed Problem Diverticular disease of colon (605349781) Diverticulosis of large intestine without perforation or abscess without bleeding (K57.30) Active confirmed Problem Oropharyngeal dysphagia (82369220) Dysphagia, oropharyngeal phase (R13.12) Active confirmed Problem Dysphagia (33850063) Dysphagia (R13.10) Active confirmed Problem Screening for malignant neoplasm of colon (415226422) Screen for colon cancer (Z12.11) Active confirmed Problem Right lower quadrant pain (476538717) Abdominal pain, RLQ (R10.31) Active confirmed Problem Chronic gastritis (0374413) Chronic gastritis (K29.50) Active confirmed Vital Signs Temperature 97.3 degrees Fahrenheit 09/13/2024 Blood pressure diastolic 01 mm Hg 09/13/2024 Height 62 in 09/13/2024 Blood pressure systolic 001 mm Hg 09/13/2024 Weight 145 lbs 09/13/2024 BMI 26.52 kg/m2 09/13/2024 Encounters Encounter Location Date Provider Diagnosis [facility] [address] [place] [address] 09/13/2024 David Mcdowell Dysphagia R13.10 ; Chronic [...] Coverage Start Date Coverage End Date [employer] [address] [address] [place] [address] [id number] CAYDEN NUNEZ Self - patient is the insured Medical (General) History Medical History History ICD Code Colonoscopy 08-01-2003 with the finding of proctitis Denies [place],DM,CVA,renal disease,asthma Spontaneous pneumothorax Hypothyroidism Negative screening colonoscopy in 2--no polyps, no proctitis Diverticulitis in approx 201 5--describes a CT scan and outpatient antibiotics IBS with constipation Hyperlipidemia Anxiety Ovarian cysts COVID 05/2022 Screening colonoscopy in Aug was negative other than a hyperplastic polyp [address] Marie at [facility] from Rheumatology for workup of possible autoimmune disease including either Sjogren's disease or Lupus 03/2024 EGD with dilation up to a 20mm balloon--no esophagitis, no EoE, no strictures/no rings, small hiatal hernia, bx neg for H.pylori in stomach Surgical History Surgery Date(Month/Year) Partial hysterectomy 2007 Cholecystectomy Right elbow ulnar nerve decompression 10/31/2023
[2025-05-25 10:18] VITALS: BP 118/80; PULSE 108; TEMP 36.5; O2SAT 98; BMI 26.3
--- NOTE | 2025-05-25 10:18 | AM.OFFWIN_ITS ---
Intake Vital Signs 05/25/25 10:18 Height 5 ft 4 in Weight 153 lb BMI 26.3 BP 118/80 Blood Pressure Location Rt brachial Position Standing Pulse 108 H Pulse Source Pulse Oximeter Temp 97.7 F Temp Source Oral Pulse Oximetry (%) 98 Oxygen Delivery Method Room Air Intake Visit Reasons: EP Possible shingles Intake Note: pt presents with possible shingles on her left buttock developed 4 days ago, pt reports h/o shingles Patient Tobacco Use Status: Former Tobacco user Allergies No Known Allergies Allergy (Mild, Verified 05/25/25 10:21) NKA Do you need a note to return to daycare/school/sports/work: No HPI HPI Comments History of Present Illness Details History of Present Illness The patient is a 64 year old individual presenting for evaluation of a recurrent painful rash. Recurrent Herpes Zoster: - The patient is experiencing the third episode of shingles since June, with the rash appearing in the same spot on the buttock each time. - This episode began on Wednesday with a he adache and fatigue, followed by pain in the affected area - Reports the next day, she noticed a ve sicular rash along the left buttock - The patient has a history of postherpe tic neuralgia in that location. - For pain management, the patient used lidocaine patches - The patient reports significant anxiet y related to health concerns and life circumstances, which is believed to be a trigger for the recurrent shingles. Review of Systems - Constitutional: Reports fatigue. No fe vers or chills - Dermatologic: Reports a painful, recur rent rash with some pustules on the left buttock. - Psychiatric: Reports significant stres s and anxiety. Physical Exam General Appearance: Normal appearance, well developed. No acute distress Head: Normocephalic, atraumatic Pulmonary: No respiratory distress. Speaking in full sentences Skin: Vesicular rash with an erythematous base present along the left buttock, likely following S2 or S3 dermatome Mental Status: Alert and Oriented x 3 Psychiatric: Normal mood. Normal affect. 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 Mother Breast cancer Hypothyroidism High cholesterol Diabetes mellitus HTN (hypertension) Daughter Ankylosing spondylitis Fibromyalgia Maternal Grandmother CVD (cardiovascular disease) Maternal Grandfather Lung cancer Paternal Grandfather Unknown family medical history Paternal Grandmother Unknown family medical history Maternal Aunt Melanoma Brother Melanoma Social History Housing: House Are you a primary home health caregiver to a significant other at home: No Do you presently have visiting nurse or other home services: No Alcohol intake: current Alcohol intake frequency: holidays/special occasions only Comment: counts correct Patient Tobacco Use Status: Former Tobacco user Years Smoked: quit 35 years ago e-Cigarette/Vaping Use: Never Used Second Hand Smoke Exposure: No service: No Current occupational status: employed 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 [place], [place] Current occupational exposures/hazards: No Sexual orientation: Straight/Heterosexual Gender identity: Female Cognitive needs: No Hearing needs: No Vision needs: No Physical Exam Vital Signs: Last Vital Signs Temp 97.7 F 05/25/25 10:18 Pulse 108 H 05/25/25 10:18 BP 118/80 05/25/25 10:18 Pulse Ox 98 05/25/25 10:18 Oxygen Delivery Method Room Air 05/25/25 10:18 BMI result Body Mass Index 26.3 Assessment & Plan Assessment & Plan (1) Shingles: Code(s): B02.9 - Zoster without complications Qualifiers: Herpes zoster complications: without complications Qualified Code(s): B02.9 - Zoster without complications Plan The patient presents with the third episode of shingles since June, located on the left buttock. The recurrence is likely precipitated by significant life stressors. The clinical presentation is consistent with herpes zoster. Plan includes a prescription for Valacyclovir 1 g TID for 7 days. Reviewed recent kidney function. Discussed contagious nature of virus, especially until rash has fully crusted over F/U if new or worsening symptoms Patient was informed and verbally consented to the use of an ambient scribe for clinic note documentation during the visit. Medications: New valacyclovir 1,000 mg PO Q8H 21 tabs 0RF 7 days Discontinued acyclovir Discontinued Reason: Duplicate 800 mg PO TID 30 tabs 2RF Coding Level of Care Code Est Pt Level 3 (94885) Diagnoses Herpes zoster without complication B02.9 Herpes zoster complications: without complications
== END 2025-05-25 10:54 | disposition home or self-care (01) ==
PROVIDERS: PCP Nurse Practitioner Family; Visit Provider Family Medicine
DX: B02.9 Zoster without complications (principal)

== ENCOUNTER → 2025-05-29 13:56 | Outpatient (BNV) | payer OTHER, SELFPAY | PROVIDERS: PCP Nurse Practitioner Family; Referring Provider Nurse Practitioner Family; Visit Provider Internal Medicine | DX: D75.839 Thrombocytosis, unspecified (principal) | CPT/HCPCS: 99204 ==